=== PATIENT | female | born 1980 ===

== ENCOUNTER 2020-01-20 14:39 | Emergency (ER) | payer OTHER, SELFPAY ==
--- NOTE | ~2020-01-20 | CT_ITS ---
EXAMINATION: CT brain wo con DATE: 01/20/2020 16:01 INDICATION: Headache TECHNIQUE: Computed tomography (CT) of the head was performed without intravenous contrast. Sagittal and coronal reconstructions were performed. The mA was adjusted according to patient size. Iterative reconstruction technique was employed. The dose-length product was 605.33 mGy-cm. COMPARISON: head CT dated 11/15/2018 FINDINGS: No acute intracranial hemorrhage, acute infarction or abnormal extra axial fluid collection. Ventricl es are normal and symmetric. No mass/mass effect. Postoperative changes in the paranasal sinuses with bilateral uncinectomies and antral window procedures and resection of many of the ethmoid sinus sept ations. Sclerotic wall thickening at the bilateral sphenoid sinuses likely sequela of chronic sinusit is. The orbits and mastoid air cells are normal. IMPRESSION: 1. Normal brain. No acute intracranial process. Reviewed, dictated and finalized at [facility]. [employer]
[2020-01-20 14:46] VITALS: BP 143/86; PULSE 109; RESP 18; TEMP 36.6; O2SAT 99
[2020-01-20 15:05] LABS: Basophils Percent Auto 0.3 % (0.2-1.2); Eosinophils Absolute Auto 0.2 K/mm3 (0-0.3); Eosinophils Percent Auto 1.6 % (0-4.4); Hematocrit 42.6 % (37.0-47.0); Immature Granulocyte Absolute 0.06 K/mm3 (0.00-0.031); Immature Granulocyte Percent A 0.6 % (0-0.5); Lymphocytes Absolute Auto 2.59 K/mm3 (0.9-3.2); Mean Corpuscular HGB Conc 32.9 g/dl (32-36); Mean Corpuscular Volume 82.2 fl (80-100); Mean Platelet Volume 11.4 fl (7.4-10.4); Monocytes Absolute Auto 0.3 K/mm3 (0.1-0.6); Monocytes Percent Auto 3.6 % (2.6-8.5); Neutrophils Absolute Auto 6.1 K/mm3 (1.3-6.7); Neutrophils Percent Auto 65.9 % (45.5-73.1); Platelet Count Result 236 k/mm3 (150-375); Red Blood Count 5.18 M/mm3 (4.2-5.4); Red Cell Distribution Width 13.3 % (11.5-14.5); White Blood Count 9.2 K/mm3 (4.5-10.0)
[2020-01-20 15:06] LABS: Glucose Point of Care 267 (65-105)
[2020-01-20 15:17] LABS: Alanine Aminotransferase 24 U/L (4-35); Albumin Level 4.6 g/dL (3.5-5.1); Alkaline Phosphatase 134 U/L (38-126); Anion Gap 10 mmol/L (8-16); Aspartate Amino Transferase 27 U/L (14-36); Bilirubin,Total 0.4 mg/dL (0.2-1.3); Blood Urea Nitrogen 10 mg/dL (7-17); Calcium 9.9 mg/dL (8.4-10.2); Carbon Dioxide 31 mmol/L (22-30); Chloride 97 mmol/L (98-107); Estimated CRCL calculation 165 ml/min; Estimated Glomerular Filt Rate > 60; Glucose 301 mg/dL (65-105); Magnesium 1.7 mg/dL (1.6-2.3); Phosphorus 3.5 mg/dL (2.5-4.5); Potassium 4.1 mmol/L (3.4-5.0); Sodium 138 mmol/L (137-145)
[2020-01-20 15:20] LABS: Beta-Hydroxybutyrate/Acetoacetate 0.05 mmol/L (0.02-0.27)
[2020-01-20 15:23] LABS: Add Urine Microscopic? YES; Appearance Urine Clear (Clear); Bilirubin Urine Negative (Negative); Blood Urine 3+ (Negative); Color Urine Yellow (Yellow); Glucose Urine UA 3+ mg/dL (Negative); Ketones Urine Negative (Negative); Leukocyte Esterase Ur Trace LEU/UL (Negative); Nitrate Urine Negative (Negative); Protein Urine 1+ mg/dL (Negative); RBC Urine 21-50 /hpf (0-2); Specific Grav Ur 1.028 (1.001-1.035); Squamous Epithelial Cell Urine Occasional /hpf (Few); Urobilinogen Urine Negative mg/dL (<2.0); WBC Urine 0-3 /hpf
--- NOTE | 2020-01-20 15:53 | ED.RECABL ---
HPI - Recheck/Abnormal Lab/Rx General Chief Complaint: Recheck/Abnormal Lab/Rx Stated Complaint: ELEVATED BLOOD SUGAR Time Seen by Provider: 01/20/20 15:29 Source: patient Mode of arrival: ambulatory Limitations: no limitations History of Present Illness HPI narrative: This patient is a 39 year old female with history of DM, hypertension, glaucoma and chronic pain who presents for evaluation of an elevated blood sugar. PAtient reports she has felt off for 2 weeks . She report states today she checked her blood sugar and it was 500. She does not check her blood sugar daily so she is unsure if it has been runny high for 2 weeks . She reports frontal headache and blurred vision for 2 days. She has history of these headache with blurred vision . She has had frequent evaluation and she is following with an opthalmologist on Wednesday. She is taking eye drops due to elevated IOP of 28. She has been taking excedrin for her pain. she denies nausea , vomiting, sinus disease, or fever. She denies urinary symptoms. She reports she has been taking her diabetes medication as prescribed. Related Data Home Medications Medication Instructions Recorded Confirmed [place] 01/20/20 acyclovir 200 mg PO QID 01/20/20 amlodipine 10 mg PO DAILY 01/20/20 azelastine 1 drp OPHTHALMIC (EYE) BID 01/20/20 bupropion HCl [Wellbutrin XL] 150 mg PO QAM 01/20/20 bupropion HCl [Wellbutrin XL] 300 mg PO QAM 01/20/20 dicyclomine [Bentyl] 10 mg PO BID 01/20/20 diphenoxylate-atropine [Lomotil] 1 tablet PO TID PRN 01/20/20 gabapentin [Neurontin] 600 mg PO TID 01/20/20 latanoprostene bunod [Vyzulta] 1 drp OPHTHALMIC (EYE) QPM 01/20/20 metoprolol tartrate 50 mg PO Q12H 01/20/20 ropinirole [Requip] 2 mg PO TID 01/20/20 sitagliptin [Januvia] 100 mg PO DAILY 01/20/20 Allergies Allergy/AdvReac Type Severity Reaction Status Date / Time fexofenadine Allergy Mild Other Verified 01/20/20 14:50 latex Allergy Mild Hives / Verified 01/20/20 14:50 Red Face tramadol Allergy Mild Hives / Verified 01/20/20 14:50 Red Face Review of Systems Review of Systems: All systems reviewed & are unremarkable except as noted in HPI and below Constitutional: Constitutional: Denies chills and Denies fever(s) Eyes: Eyes: Reports blurry vision ENT: Reports dizziness Cardiovascular: Cardiovascular: Denies chest pain Respiratory: Respiratory: Denies cough and Denies dyspnea Gastrointestinal: Gastrointestinal: Denies abdominal pain Neurologic: Denies vertigo, Reports headache(s), Denies focal weakness, Denies numbness and Denies weakness [facility] Past Medical History Medical History (Updated 01/20/20 @ 18:51 by Consuelo Adler MD) Anxiety Depression Diabetes mellitus Glaucoma Neuropathy Surgical History Surgical History (Updated 01/20/20 @ 17:33 by Consuelo Adler MD) Hx of cholecystectomy Hx of tonsillectomy Social History Social History (Updated 01/20/20 @ 17:33 by Consuelo Adler MD) Smoking status: Never smoker Gender identity (if verbalized by the patient): Female Exam Const: General: no acute distress and alert Nutritional Appearance: obese Orientation/consciousness: patient oriented x3 HENMT: Head: normocephalic and atraumatic Ears: TM's normal bilaterally General nose exam: Normal external nose present, Normal nares present and No nasal polyps present Mouth: Yes Normal oral and palatal mucosa present, Yes lip normal, Yes oropharynx normal and Yes moist mucous membranes Throat: posterior oropharynx normal Eyes: Conjunctivae: conjunctivae normal Pupils: Equal, round and reactive pupils present EOM: EOMs intact bilaterally Direct Ophthalmoscopy: no photophobia Other: IOP right eye 21 , IOP left eye 21 Chest: Chest palpation & inspection: normal inspection of the chest Resp: Effort & Inspection: normal respiratory effort and no retractions Auscultation: clear to auscultation bilaterally Cardio: Rate: regula
[2020-01-20] MEDS: LACTATED RINGERS 1,000 ML 999 ML IV CONT (16:42)
[2020-01-20] MEDS: diphenhydrAMINE HCl INJ 50 MG/ML VIAL 25 MG IV PUSH (16:42)
[2020-01-20] MEDS: METOCLOPRAMIDE HCL INJ 10 MG/2 ML VIAL IV PUSH (16:42)
[2020-01-20 16:44] VITALS: BP 148/93; PULSE 105; RESP 20; O2SAT 98
[2020-01-20 17:51] VITALS: BP 136/83; PULSE 105; RESP 20; O2SAT 98
[2020-01-20] MEDS: LORazepam INJ (*CRX) 2 MG/ML VIAL 0.5 MG IV PUSH (17:55)
[2020-01-20] MEDS: KETOROLAC 30 MG/ML VIAL (*BKC) IV PUSH (17:55)
[2020-01-20 18:15] VITALS: BP 131/84; PULSE 108; RESP 18; O2SAT 98
[2020-01-20] MEDS: SODIUM CHLORIDE 0.9% IV 1,000 ML 999 ML IV CONT (18:23)
[2020-01-20 19:03] VITALS: BP 135/93; PULSE 100; RESP 20; O2SAT 97
[2020-01-20 19:25] VITALS: BP 135/93; PULSE 100; RESP 18; O2SAT 98
== END 2020-01-20 19:29 | disposition home or self-care (01) ==
PROVIDERS: Emergency Medicine; Emergency Provider General Practice; PCP Family Medicine
DX: E11.65 Type 2 diabetes mellitus with hyperglycemia (principal); R51.9 Headache, unspecified; E86.0 Dehydration; I10 Essential (primary) hypertension; H40.9 Unspecified glaucoma; F41.9 Anxiety disorder, unspecified; F32.9 Major depressive disorder, single episode, unspecified; E11.40 Type 2 diabetes mellitus with diabetic neuropathy, unspecified; Z79.84 Long term (current) use of oral hypoglycemic drugs
CPT/HCPCS: 36415; 70450; 80053; 81001; 81025; 82010; 82948; 83735; 84100; 85025; 96361; 96374; 96375; 99284; J1200; J1885; J2060; J2765; J7030; J7120

== ENCOUNTER 2022-02-23 13:36 | Emergency (ER) | payer OTHER, SELFPAY ==
[2022-02-23 14:06] VITALS: BP 164/85; PULSE 101; RESP 16; TEMP 36.7; O2SAT 100
--- NOTE | 2022-02-23 15:34 | ED.FEMALEGU ---
HPI - Female Genitourinary General Chief complaint: Urogenital-Female Stated complaint: UTI Time Seen by Provider: 02/23/22 15:34 Source: patient, RN notes reviewed and old records reviewed Mode of arrival: ambulatory Limitations: no limitations History of Present Illness HPI Narrative: 41-year-old female presents to the [facility] with complaints of urinary frequency, urgency, burning and pressure along with lower suprapubic pressure. Denies abdominal pains or fevers. Has been going on for 6 days. Was concern for as well Related Data Home Medications Medication Instructions Recorded Confirmed [place] 01/20/20 amlodipine 10 mg tablet 10 mg PO DAILY 01/20/20 azelastine 0.05 % eye drops 1 drp ophthalmic (eye) BID 01/20/20 bupropion HCl 150 mg 24 hr tablet, 150 mg PO QAM 01/20/20 extended release (Wellbutrin XL) bupropion HCl 300 mg 24 hr tablet, 300 mg PO QAM 01/20/20 extended release (Wellbutrin XL) dicyclomine 10 mg capsule 10 mg PO BID 01/20/20 diphenoxylate-atropine 2.5 1 tablet PO TID PRN Constipation 01/20/20 mg-0.025 mg tablet (Lomotil) gabapentin 600 mg tablet 600 mg PO TID 01/20/20 (Neurontin) latanoprostene bunod 0.024 % eye 1 drp ophthalmic (eye) QPM 01/20/20 drops (Vyzulta) metoprolol tartrate 50 mg tablet 50 mg PO Q12H 01/20/20 ropinirole 2 mg tablet 2 mg PO TID 01/20/20 sitagliptin phosphate 100 mg 100 mg PO DAILY 01/20/20 tablet (Januvia) Barium Fusionmvi 02/23/22 Citracal plus D 02/23/22 Saxenda 02/23/22 02/23/22 Slow Fe 02/23/22 acyclovir 200 mg/5 mL oral mg 02/23/22 suspension brimonidine 0.2 % eye drops drp 02/23/22 ergocalciferol (vitamin D2) 1,250 02/23/22 mcg (50,000 unit) capsule liraglutide 0.6 mg/0.1 mL (18 mg/3 mg subcut 02/23/22 mL) subcutaneous pen injector (Victoza 2-Lobito) naltrexone 50 mg tablet mg 02/23/22 timolol maleate 0.5 % eye drops drp 02/23/22 Allergies Allergy/AdvReac Type Severity Reaction Status Date / Time fexofenadine Allergy Mild Other Verified 02/23/22 15:22 latex Allergy Mild Hives / Verified 02/23/22 15:22 Red Face tramadol Allergy Mild Hives / Verified 02/23/22 15:22 Red Face Review of Systems Review of Systems: All systems reviewed & are unremarkable except as noted in HPI and below Constitutional: Constitutional: Reports no additional constitutional complaints Eyes: Eyes: Reports no additional eye complaints ENT: Reports system reviewed and no additional complaints, except as documented Cardiovascular: Cardiovascular: Reports no additional cardiovascular complaints, Denies chest pain and Denies dyspnea Respiratory: Respiratory: Reports no additional respiratory complaints, Denies chest congestion, Denies cough and Denies dyspnea Gastrointestinal: Gastrointestinal: Reports no additional gastrointestinal complaints, Denies abdominal pain, Denies nausea and Denies vomiting Genitourinary: Genitourinary: Reports as per HPI Musculoskeletal: Musculoskeletal: Reports no additional musculoskeletal complaints Integumentary/Breasts: Skin/Breast: Reports system reviewed and no additional complaints, except as docu Neurologic: Reports system reviewed and no additional complaints, except as documented Psychiatric: Psychiatric: Reports no additional psychiatric complaints Allergic/Immunologic: Allergic/Immunologic: Reports no additional allergic/immunologic complaints PMFSH Past Medical History Medical History Anxiety Depression Diabetes mellitus Glaucoma Neuropathy Surgical History Surgical History Hx of cholecystectomy Hx of tonsillectomy Social History Social History Smoking status: Never smoker Gender identity (if verbalized by the patient): Female Comments At the time of my signature, I reviewed and agree with
== END 2022-02-23 15:47 | disposition home or self-care (01) ==
PROVIDERS: Emergency Provider Nurse Practitioner; PCP Family Medicine
DX: N39.0 Urinary tract infection, site not specified (principal); Z32.02 Encounter for pregnancy test, result negative; E11.39 Type 2 diabetes mellitus with other diabetic ophthalmic complication; H42 Glaucoma in diseases classified elsewhere; E11.40 Type 2 diabetes mellitus with diabetic neuropathy, unspecified
CPT/HCPCS: 81003; 81025; 87077; 87086; 87186; 99213; G0463

== ENCOUNTER 2024-06-22 12:39 | Emergency (ER) | payer OTHER, SELFPAY ==
[2024-06-22 12:50] VITALS: BP 120/85; PULSE 63; RESP 18; TEMP 36.1; O2SAT 99
--- NOTE | 2024-06-22 12:54 | ED_ITS ---
HPI - Epistaxis General Chief complaint: Epistaxis <Romana López APRN - Last Filed: 06/22/24 12:57> Stated complaint: Nose bleed -pt on Eliquis <Romana López APRN - Last Filed: 06/22/24 12:57> Time Seen by Provider: 06/22/24 12:50 <Romana López APRN - Last Filed: 06/22/24 12:57> Focused HPI: Patient is a 44-year-old female who presents to the ER with concerns of epistaxis. She reports she had a hip replacement on June 09, 2024. Patient reports she was placed on Eliquis at that time. Approximately 30 minutes prior to arrival patient reports she started experiencing a bloody nose. Patient reports she has been putting pressure on her nose, but decided to come in for evaluation when she felt the blood running down the back of her throat. She reports this is her 1st bloody nose since taking Eliquis. Patient endorses history her palpitations but reports her cardiac workup was negative. She denies any recent fevers, increased hip pain, coughing up blood, blood in her stool, or hematuria. GENERAL: Well-appearing, well-nourished, and in no acute distress. HEAD: Normocephalic, atraumatic. Nasal bleeding controlled. CHEST: Clear to auscultation. ?No respiratory distress. HEART: Regular rate and rhythm.? NEURO: ?Alert and oriented x3. Patient screened in triage and initial orders placed.? ?Additional care and disposition to be based upon?diagnostic testing and treatment. <Romana López APRN - Last Filed: 06/22/24 12:57> History of Present Illness HPI Narrative: Agree with the HPI above <Ang Talavera MD - Last Filed: 06/22/24 15:21> Related Data Home medications: Home Medications ?Medication ?Instructions ?Recorded ?Confirmed ?Last Taken ?Type Byetta 01/20/20 Unknown History amlodipine 10 mg tablet 10 mg PO DAILY 01/20/20 Unknown History azelastine 0.05 % eye drops 1 drp ophthalmic (eye) BID 01/20/20 Unknown History bupropion HCl 150 mg 24 hr tablet, 150 mg PO QAM 01/20/20 Unknown History extended release (Wellbutrin XL) bupropion HCl 300 mg 24 hr tablet, 300 mg PO QAM 01/20/20 Unknown History extended release (Wellbutrin XL) dicyclomine 10 mg capsule 10 mg PO BID 01/20/20 Unknown History diphenoxylate-atropine 2.5 1 tablet PO TID PRN Constipation 01/20/20 Unknown History mg-0.025 mg tablet (Lomotil) gabapentin 600 mg tablet 600 mg PO TID 01/20/20 Unknown History (Neurontin) latanoprostene bunod 0.024 % eye 1 drp ophthalmic (eye) QPM 01/20/20 Unknown History drops (Vyzulta) metoprolol tartrate 50 mg tablet 50 mg PO Q12H 01/20/20 Unknown History ropinirole 2 mg tablet 2 mg PO TID 01/20/20 Unknown History sitagliptin phosphate 100 mg 100 mg PO DAILY 01/20/20 Unknown History tablet (Januvia) Barium Fusionmvi 02/23/22 Unknown History Citracal plus D 02/23/22 Unknown History Saxenda 02/23/22 02/23/22 Unknown History Slow Fe 02/23/22 Unknown History acyclovir 200 mg/5 mL oral mg 02/23/22 Unknown History suspension brimonidine 0.2 % eye drops drp 02/23/22 Unknown History ergocalciferol (vitamin D2) 1,250 02/23/22 Unknown History mcg (50,000 unit) capsule liraglutide 0.6 mg/0.1 mL (18 mg/3 mg subcut 02/23/22 Unknown History mL) subcutaneous pen injector (Victoza 2-Lobito) naltrexone 50 mg tablet mg 02/23/22 Unknown History timolol maleate 0.5 % eye drops drp 02/23/22 Unknown History <Romana López, [employer] - Last Filed: 06/22/24 12:57> Allergies/adverse reactions: Allergies Allergy/AdvReac Type Severity Reaction Status Date / Time fexofenadine Allergy Mild Other Verified 06/22/24 12:40 latex Allergy Mild Hives / Verified 06/22/24 12:40 Red Face tramadol Allergy Mild Hives / Verified 06/22/24 12:40 Red Face <Romana López, [employer] - Last Filed: 06/22/24 12:57> Review of Systems 2 Review of Systems: As reviewed above in HPI <Ang Talavera MD - Last Filed: 06/22/24 15:21> PMFSH Past Medical History Medical History: Medical History Anxiety Depression Neuropathy Glaucoma Diabetes mellitus <Romana López APRN - Last Filed: 06/22/24 12:57> Surgical History Surgical History: Surgical History Hx of cholecystectomy Hx of tonsillectomy <Romana López APRN - Last Filed: 06/22/24 12:57> Social History Social History: Social History Smoking status: Never smoker Gender identity (if verbalized by the patient): Female <Romana López APRN - Last Filed: 06/22/24 12:57> Exam 2 Narrative: GENERAL: [Well-appearing, well-nourished, and in no acute distress.] HEAD: [Normocephalic, atraumatic.] EYES: [PERRLA and EOMI.] ENT: Recent foci of anterior epistaxis in left nostril without any persistent bleeding. No posterior oropharyngeal erythema or bleeding. No epistaxis in the right nostril. No tenderness or deformity to the nose. No bruising. No septal hematoma. NECK: Supple. CHEST: [Clear to auscultation. No respiratory distress.] HEART: [Regular rate and rhythm]. No murmur heard. [Normal peripheral pulses.] ABDOMEN: [Soft, nondistended], [nontender], [No rigidity or guarding] EXTREMITIES: Normal range of motion. [No edema.] SKIN: Warm, dry, no rash. NEURO: [No focal deficits]. Alert and oriented [x3.] PSYCH: [Normal mood and affect.] <Ang Talavera MD - Last Filed: 06/22/24 15:21> Course Vital Signs Vital signs: Vital Signs Temperature 36.1 C L 04/24/25 12:50 Pulse Rate 63 06/22/24 12:50 Respiratory Rate 18 06/22/24 12:50 Blood Pressure 120/85 06/22/24 12:50 Pulse Oximetry 99 06/22/24 12:50 Oxygen Delivery Room Air 06/22/24 12:50 Temperature 36.1 C L 06/22/24 12:50 Pulse Rate 87 06/22/24 14:46 Respiratory Rate 16 06/22/24 14:46 Blood Pressure 115/76 06/22/24 14:46 Pulse Oximetry 99 06/22/24 14:46 Oxygen Delivery Room Air 06/22/24 12:50 <Romana López, [employer] - Last Filed: 06/22/24 12:57> Vital Signs Temperature 36.1 C L 06/22/24 12:50 Pulse Rate 63 06/22/24 12:50 Respiratory Rate 18 06/22/24 12:50 Blood Pressure 120/85 06/22/24 12:50 Pulse Oximetry 99 06/22/24 12:50 Oxygen Delivery Room Air 06/22/24 12:50 Temperature 36.1 C L 06/22/24 12:50 Pulse Rate 87 06/22/24 14:46 Respiratory Rate 16 06/22/24 14:46 Blood Pressure 115/76 06/22/24 14:46 Pulse Oximetry 99 06/22/24 14:46 Oxygen Delivery Room Air 06/22/24 12:50 <Ang Talavera MD - Last Filed: 06/22/24 15:21> MDM - Epistaxis MDM Narrative Medical decision making narrative: 44-year-old female presenting with epistaxis out of her left naris. Patient received Afrin with epistaxis control. Patient was observed here in the emergency depart with any recurrence of epistaxis. She is on Eliquis 2.5 mg b.i.d. for DVT prophylaxis after she had a recent left hip replacement. Patient has not missed any doses. Denies any trauma or injury. She is otherwise well- appearing and now that her epistaxis is controlled can be safely discharged home. She was provided aspirin prescription instructions on if this were to recur. Patient denies any symptoms at this time such as lightheadedness, dizziness, sore throat or any persistent bleeding. Her laboratory studies show a hemoglobin 11.1 with no recent baseline to compare to. No other concerning findings on labs. Patient was encouraged to continue taking her Eliquis and for DVT prophylaxis and return with any new or worsening concerns or recurrence. < Ang Talavera MD - Last Filed: 06/22/24 15:21> Medical Records Attestation: I reviewed the patient's medical records. <Ang Talavera MD - Last Filed: 06/22/24 15:21> Lab Data Attestation: I reviewed the patient's lab results. <Ang Talavera MD - Last Filed: 06/22/24 15:21> Result diagrams: 06/22/24 13:25 06/22/24 13:25 <Romana López APRN - Last Filed: 06/22/24 12:57> Labs: Lab Results 06/22/24 06/22/24 Range/Units 13:23 13:25 WBC 11.0 H (4.5-10.0) K/mm3 RBC 4.01 L (4.2-5.4) M/mm3 Hgb 11.1 L (12.0-15.0) g/dL Hct 34.5 L (37.0-47.0) % MCV 86.0 (80-100) fl MCH 27.7 (26-34) pg MCHC 32.2 (32-36) g/dl RDW 14.4 (11.5-14.5) % Plt Count 324 (150-375) k/mm3 MPV 10.1 (7.4-10.4) fl Immature Gran % (Auto) 0.6 H (0-0.5) % Neut % (Auto) 72.6 (45.5-73.1) % Lymph % (Auto) 20.3 (18.3-44.2) % [place] % (Auto) 3.7 (2.6-8.5) % Eos % (Auto) 2.5 (0-4.4) % Baso % (Auto) 0.3 (0.2-1.2) % Lymph # (Auto) 2.24 (0.9-3.2) K/mm3 [place] # (Auto) 0.4 (0.1-0.6) K/mm3 Eos # (Auto) 0.3 (0-0.3) K/mm3 Baso # (Auto) 0.0 (0.0-0.1) K/mm3 Abs Immat Gran (auto) 0.07 H (0.00-0.031) K/mm3 Absolute Neuts (auto) 8.0 H (1.3-6.7) K/mm3 Absolute Nucleated RBC 0.000 (0.0-0.012) K/mm3 Nucleated RBC % 0.0 (0.0-0.2) % PT 13.9 (11.1-14.7) Seconds INR 1.0 APTT 32.9 (22.3-36.8) Seconds Sodium 137 (137-145) mmol/L Potassium 3.8 (3.4-5.0) mmol/L Chloride 100 (98-107) mmol/L Carbon Dioxide 28 (22-30) mmol/L Anion Gap 9 (4-12) mmol/L BUN 8 (7-17) mg/dL Creatinine 0.62 L (0.7-1.0) mg/dL Estim Creat Clear Calc 112 ml/min Estimated GFR > 60 (59 - ) Glucose 110 (65-110) mg/dL Calcium 9.1 (8.4-10.2) mg/dL Total Bilirubin 0.7 (0.2-1.3) mg/dL AST 17 (14-36) U/L ALT 13 (6-35) U/L Alkaline Phosphatase 100 (38-126) U/L Total Protein 8.0 (6.3-8.2) g/dL Albumin 4.1 (3.5-5.1) g/dL <Romana López, [employer] - Last Filed: 06/22/24 12:57> Lab Results 06/22/24 06/22/24 Range/Units 13:23 13:25 WBC 11.0 H (4.5-10.0) K/mm3 RBC 4.01 L (4.2-5.4) M/mm3 Hgb 11.1 L (12.0-15.0) g/dL Hct 34.5 L (37.0-47.0) % MCV 86.0 (80-100) fl MCH 27.7 (26-34) pg MCHC 32.2 (32-36) g/dl RDW 14.4 (11.5-14.5) % Plt Count 324 (150-375) k/mm3 MPV 10.1 (7.4-10.4) fl Immature Gran % (Auto) 0.6 H (0-0.5) % Neut % (Auto) 72.6 (45.5-73.1) % Lymph % (Auto) 20.3 (18.3-44.2) % [place] % (Auto) 3.7 (2.6-8.5) % Eos % (Auto) 2.5 (0-4.4) % Baso % (Auto) 0.3 (0.2-1.2) % Lymph # (Auto) 2.24 (0.9-3.2) K/mm3 [place] # (Auto) 0.4 (0.1-0.6) K/mm3 Eos # (Auto) 0.3 (0-0.3) K/mm3 Baso # (Auto) 0.0 (0.0-0.1) K/mm3 Abs Immat Gran (auto) 0.07 H (0.00-0.031) K/mm3 Absolute Neuts (auto) 8.0 H (1.3-6.7) K/mm3 Absolute Nucleated RBC 0.000 (0.0-0.012) K/mm3 Nucleated RBC % 0.0 (0.0-0.2) % PT 13.9 (11.1-14.7) Seconds INR 1.0 APTT 32.9 (22.3-36.8) Seconds Sodium 137 (137-145) mmol/L Potassium 3.8 (3.4-5.0) mmol/L Chloride 100 (98-107) mmol/L Carbon Dioxide 28 (22-30) mmol/L Anion Gap 9 (4-12) mmol/L BUN 8 (7-17) mg/dL Creatinine 0.62 L (0.7-1.0) mg/dL Estim Creat Clear Calc 112 ml/min Estimated GFR > 60 (59 - ) Glucose 110 (65-110) mg/dL Calcium 9.1 (8.4-10.2) mg/dL Total Bilirubin 0.7 (0.2-1.3) mg/dL AST 17 (14-36) U/L ALT 13 (6-35) U/L Alkaline Phosphatase 100 (38-126) U/L Total Protein 8.0 (6.3-8.2) g/dL Albumin 4.1 (3.5-5.1) g/dL <Ang Talavera MD - Last Filed: 06/22/24 15:21> Discharge Plan Discharge Clinical Impression: Epistaxis <Romana López APRN - Last Filed: 06/22/24 12:57> Patient Disposition: Home <Romana López APRN - Last Filed: 06/22/24 12:57> Condition: Stable <Romana López APRN - Last Filed: 06/22/24 12:57> Instructions: Antibiotic Form, Nosebleed (ED) <Romana López APRN - Last Filed: 06/22/24 12:57> Additional Instructions: Follow-up with regular doctor. Return with any new or worsening concerns. Take Afrin and apply it to some cotton or gauze and apply it to the nostril that is bleeding if you are having a recurrent severe nose bleed. Continue taking your Eliquis for your DVT prophylaxis. Return with any new or worsening concerns. <Romana López APRN - Last Filed: 06/22/24 12:57> Patient Language: Citizen Of [place] <Romana López APRN - Last Filed: 06/22/24 12:57> Prescriptions: No Action brimonidine 0.2 % drops ergocalciferol (vitamin D2) 1,250 mcg (50,000 unit) capsule timolol maleate 0.5 % drops sulfamethoxazole-trimethoprim [Bactrim DS] 800-160 mg tablet 1 tablet PO Q12H Qty: 14 0RF phenazopyridine [Pyridium] 200 mg tablet 200 mg PO TID PRN (Reason: pain) Qty: 6 0RF naltrexone 50 mg tablet Victoza 2-Lobito 0.6 mg/0.1 mL (18 mg/3 mL) pen injector SUBCUT Saxenda acyclovir 200 mg/5 mL suspension Barium Fusionmvi Slow Fe Citracal plus D azelastine 0.05 % Drops 1 drp OPHTHALMIC (EYE) BID gabapentin [Neurontin] 600 mg Tablet 600 mg PO TID diphenoxylate-atropine [Lomotil] 2.5-0.025 mg Tablet 1 tablet PO TID PRN (Reason: Constipation) amlodipine 10 mg Tablet 10 mg PO DAILY ropinirole [Requip] 2 mg Tablet 2 mg PO TID metoprolol tartrate 50 mg Tablet 50 mg PO Q12H dicyclomine [Bentyl] 10 mg Capsule 10 mg PO BID bupropion HCl [Wellbutrin XL] 300 mg Tablet Extended Release 24 Hr 300 mg PO QAM bupropion HCl [Wellbutrin XL] 150 mg Tablet Extended Release 24 Hr 150 mg PO QAM Januvia 100 mg Tablet 100 mg PO DAILY Vyzulta 0.024 % Drops 1 drp OPHTHALMIC (EYE) QPM Byetta <Romana López APRN - Last Filed: 06/22/24 12:57> Follow-up/Referrals: Waldo,Christo Rojas MD [Primary Care Provider] - <Romana López APRN - Last Filed: 06/22/24 12:57> Time of Disposition: 15:18 <Romana López APRN - Last Filed: 06/22/24 12:57> 15:18 <Ang Talavera MD - Last Filed: 06/22/24 15:21>
[2024-06-22 13:32] LABS: Basophils Percent Auto 0.3 % (0.2-1.2); Eosinophils Absolute Auto 0.3 K/mm3 (0-0.3); Eosinophils Percent Auto 2.5 % (0-4.4); Hematocrit 34.5 % (37.0-47.0); Hemoglobin 11.1 g/dL (12.0-15.0); Immature Granulocyte Absolute 0.07 K/mm3 (0.00-0.031); Immature Granulocyte Percent A 0.6 % (0-0.5); Lymphocytes Absolute Auto 2.24 K/mm3 (0.9-3.2); Lymphocytes Percent Auto 20.3 % (18.3-44.2); Mean Corpuscular HGB Conc 32.2 g/dl (32-36); Mean Corpuscular Hemoglobin 27.7 pg (26-34); Mean Platelet Volume 10.1 fl (7.4-10.4); Monocytes Absolute Auto 0.4 K/mm3 (0.1-0.6); Monocytes Percent Auto 3.7 % (2.6-8.5); Neutrophils Percent Auto 72.6 % (45.5-73.1); Platelet Count Result 324 k/mm3 (150-375); Red Blood Count 4.01 M/mm3 (4.2-5.4); Red Cell Distribution Width 14.4 % (11.5-14.5)
--- OUTSIDE RECORDS SUMMARY | 2024-06-22 13:40 | XMS_ITS | Clinical Summary ---
Author Organization [address] Address [facility] [place] [address] Care Team Providers Care Machine Setter Supervisor Name Role Phone Christo Haas MD Primary Care Provider Stephanie Dangelo PA Unavailable [phone] Allergies Active Allergy Reactions Criticality Noted Date Comments Fexofenadine Palpitations,Othe r (See comments) Low 04/09/2023 Reaction: Increased Heart Rate, Latex Hives,Stomach upset,Other (See comments) Medium 03/29/2017 Reaction: Hives, , hives Metformin Diarrhea,Other (See comments) High 09/23/2020 Nsaids (Non-Steroidal Anti-Inflammatory Drug) Other (See comments) Low 04/09/2023 Reaction: Gastrointestinal Intolerance 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 2020; takes medication type in small doses infrequently Tramadol Hives,Itching,Deacon h Medium 12/14/2023 Medications brimonidine (ALPHAGAN) 0.2 % ophthalmic solution Administer 1 drop into both eyes 3 (three) times a day Active OneTouch Verio Flex meter misc USE DIRECTED ONCE DAILY Active pen needle, diabetic 29 gauge x 1/2 needle Use to inject 1-4 times daily as directed Active OneTouch Verio test strips stripIndications: Type 2 diabetes mellitus with hyperglycemia, with long-term current use of insulin ([facility]) USE TO CHECK GLUCOSE ONCE DAILY 100 strip 6 Active OneTouch Delica Plus Lancet 33 gauge miscIndications:T ype 2 diabetes mellitus with hyperglycemia, with long-term current use of insulin ([facility]) USE TO CHECK GLUCOSE ONCE DAILY 100 each 6 Active buPROPion XL (WELLBUTRIN XL) 300 mg 24 hr tablet Take 1 tablet (300 mg total) by mouth daily Active gabapentin (NEURONTIN) solution 250 mg/5 mL Take 22 mL (1,100 mg total) by mouth 3 (three) times a day as needed (pain) Active famotidine (PEPCID) 20 mg tablet Take 1 tablet (20 mg total) by mouth 2 (two) times a day as needed Active ketoconazole (NIZORAL) 2 % cream Apply 1 Application topically daily as needed for rash Active pilocarpine (PILOCAR) 1 % ophthalmic solution Administer 1 drop into both eyes nightly Active acyclovir (ZOVIRAX) 400 mg tablet Take 1 tablet (400 mg total) by mouth 5 (five) times a day For outbreak Active latanoprost (XALATAN) 0.005 % ophthalmic solution Administer 1 drop into both eyes nightly Active propranolol LA (INDERAL LA) 120 mg 24 hr capsule Take 1 capsule (120 mg total) by mouth daily Active timolol (TIMOPTIC) 0.5 % ophthalmic solution Administer 1 drop into both eyes 2 (two) times a day Active busPIRone (BUSPAR) 10 mg tablet Take 2 tablets (20 mg total) by mouth 2 (two) times a day Active galcanezumab-gnlm 120 mg/mL pen injector Inject 120 mg under the skin every 30 (thirty) days 1 mL 11 024 2024 Active ubrogepant (Ubrelvy) 100 mg tablet Take 1 tablet (100 mg total) by mouth once as needed for migraine May repeat dose once in 2 hours if no relief. Do not exceed 2 doses in 24 hours. 10 tablet 11 2024 Active SUMAtriptan (Imitrex STATdose Pen) 6 mg/0.5 mL injection Inject 0.5 mL (6 mg total) under the skin as needed for migraine May repeat after 1 hour if needed; MAX 12 mg/24 hours. 6 mL 5 Active Ozempic 1 mg/dose (4 mg/3 mL) pen injector injection Inject 1 mg under the skin once a week Takes on Sundays Active DULoxetine DR (CYMBALTA) 60 mg capsule Take 1 capsule (60 mg total) by mouth daily Active prochlorperazine (COMPAZINE) 10 mg tablet Take 1 tablet (10 mg total) by mouth every 8 (eight) hours as needed for nausea (migraine) 30 tablet 2024 Active apixaban (ELIQUIS) 2.5 mg tabletIndications :VTE Prophylaxis Following Ortho Surgery Take 1 tablet (2.5 mg total) by mouth 2 (two) times a day 28 tablet Active acetaminophen (TYLENOL) 500 mg tablet Take 2 tablets (1,000 mg total) by mouth 2 (two) times a day as needed for pain Active carboxymethylcell ulose-glycern 0.5-0.9 % drops Administer 1 drop into affected eye(s) daily as needed (dry eyes) Active oxyCODONE (ROXICODONE) 5 mg immediate release tabletIndications :Pain Take 1 tablet (5 mg total) by mouth every 4 (four) hours as needed for pain 30 tablet Active methocarbamoL (ROBAXIN) 500 mg tabletIndications :S/P total left hip arthroplasty,Spas m of muscle Take 1 tablet (500 mg total) by mouth 4 (four) times a day 30 tablet Active Byetta 10 mcg/dose(250 mcg/mL) 2.4 mL injection INJECT 10 MICROGRAMS TWICE A DAY BEFORE MEALS 2020 Discontinued(A lternate therapy) Januvia 100 mg tablet Take 100 mg by mouth daily 2020 Discontinued(A lternate therapy) UNABLE TO FIND Administer 1 each into affected eye(s) nightly Med Name: Pilocartine 1% I drop OU nightly 2024 Discontinued(T herapy completed) UNABLE TO FIND Administer 1 each into affected eye(s) nightly Med Name: Latanotrost 0.005% one drop OU nightly 2024 Discontinued(T herapy completed) diclofenac sodium (VOLTAREN) 1 % gelIndications:Os teoarthritis of left patellofemoral joint Apply 4 g topically 4 (four) times a day 200 g 1 [address] (VOLTAREN) 75 mg EC tablet Take 1 tablet (75 mg total) by mouth 2 (two) times a day 2024 Discontinued prochlorperazine (COMPAZINE) 10 mg tablet Take 1 tablet (10 mg total) by mouth every 8 (eight) hours as needed for nausea (migraine) 20 tablet 2024 Discontinued(R eorder) meloxicam (MOBIC) 15 mg tablet Take 1 tablet (15 mg total) by mouth daily as needed 025 2024 Discontinued(S top Taking at Discharge) DULoxetine DR (CYMBALTA) 30 mg capsule 1 capsule (30 mg total) daily 2024 Discontinued ciprofloxacin-dex AMETHasone (CIPRODEX) otic suspension 2024 Discontinued(T herapy completed) diclofenac DR (VOLTAREN) 75 mg EC tablet Take 1 tablet (75 mg total) by mouth 2 (two) times a day 2024 Discontinued(T herapy completed) potassium chloride ER 20 mEq CR tablet Take 1 tablet (20 mEq total) by mouth 2 (two) times a day for 7 days 14 tablet 025 2024 Discontinued(T herapy completed) oxyCODONE (ROXICODONE) 5 mg immediate release tabletIndications :Pain Take 1 tablet (5 mg total) by mouth every 4 (four) hours as needed for pain 30 tablet 025 2024 Discontinued(R eorder) methocarbamoL (ROBAXIN) 500 mg tablet Take 1 tablet (500 mg total) by mouth 3 (three) times a day for 5 days 15 tablet 025 2024 Active Problems Problem Noted Date Diagnosed Date S/P total left hip arthroplasty 06/10/2024 Assessment & Plan (06/22/2024 8:57 AM CDT): Patient is doing well overall. X-rays were reviewed with the patient today in clinic and demonstrate hardware in good alignment without apparent complication. Patient's pain is under control, pain medication was refilled today. Muscle relaxer also refilled. Patient will continue outpatient physical therapy. No evidence of infection of the surgical site. Patient will continue to keep the surgical site clean and dry for 2 more weeks and then may start getting it wet in the shower. Signs of infection were reviewed with the patient including increased swelling and erythema along the surgical site, purulent drainage from the surgical site, fever, chills and they will notify us they develop any of these signs. She will follow up in 4 weeks for x- rays and further evaluation with Dr. Cano. She expressed understanding and agreement with the plan. Type 2 diabetes mellitus wit hout complication, without long-term current use of insulin 06/09/2024 Primary osteoarthritis of left hip 04/12/2024 Chronic SI joint pain 04/12/2024 Impacted cerumen of right ear 06/21/2023 Assessment & Plan (06/21/2023 12:00 PM CDT): There was a pretty thick layer of debris covering the tympanic membrane on the right side that was removed. I think that was probably causing her continued symptoms. We will take a wait and see approach now that this has cleared. She can follow up if she has any further problems. She understands. Ocular hypertension 05/26/2023 Malabsorption syndrome 05/26/2023 Neuropathy 05/26/2023 Restrictive lung disease 05/26/2023 Weight gain due to medication 05/26/2023 Atypical chest pain 03/30/2023 Non-rheumatic mitral regurgitation 03/30/2023 Fatty liver 01/29/2023 S/P gastric sleeve procedure 01/29/2023 Otitis media 01/19/2023 Assessment & Plan (06/21/2023 12:00 PM CDT): I think that the infection that she was dealing with has probably resolve. I reviewed the MRI scan and it really does not show anything else. I think that was probably middle ear effusion noted on those films. His point things seem to have resolved. I do not feel there is any need for further intervention. She can follow up with me if her symptoms persist. She understands. Low back pain 12/11/2022 Osteoarthritis of knee 12/11/2022 Intermittent palpitations 11/10/2022 Migraine 07/03/2022 Thyroid nodule 07/03/2022 Herniated lumbar intervertebral disc 2022 Irritable bowel syndrome with diarrhea Gastric reflux 10/16/2021 Spondylosis of lumbar region without myelopathy or radiculopathy 07/10/2021 Lumbar paraspinal muscle spasm 07/10/2021 Paresthesia of right foot 07/10/2021 Status post bariatric surgery 08/01/2020 Morbid obesity 07/02/2020 SVT (supraventricular tachycardia) 03/21/2020 Bilateral leg edema 03/21/2020 Vitamin D deficiency 03/21/2020 Assessment & Plan (07/08/2021 3:13 PM CDT): Continue ergocalciferol 50,000 international units weekly Assessment & Plan (03/27/2021 3:33 PM BARBER INSTRUCTOR): Will check 25 hydroxy vitamin-D level Start ergocalciferol if indicated Iron deficiency 03/21/2020 Dyslipidemia 07/26/2018 Anxiety 04/24/2018 Arteriovenous malformation of stomach 04/24/2018 Depressive disorder 04/24/2018 Iron deficiency anemia 04/24/2018 Chronic sinusitis 04/24/2018 Glaucoma 04/24/2018 Restless legs 04/24/2018 Assessment & Plan (07/13/2023 9:30 AM CDT): Doing well with the liquid gabapentin as ordered by pain clinic Migraine without aura and wi thout status migrainosus, not intractable 06/15/2017 Bilateral sacroiliitis 05/20/2017 Primary osteoarthritis of right shoulder 017 Type 2 diabetes mellitus wit h hyperglycemia, with long-term current use of insulin 10/07/2016 Assessment & Plan (07/08/2021 3:12 PM CDT): Hba1c was Lab Results Component Value Date HGBA1C 6.6 07/08/2021 today, indicating adequate DM control Goal Hba1c and blood glucose explained Diet and exercise were advised Prevention and treatment of hyypoglcyemia were discussed with the patient Blood glucose monitoring : 1-2 x day Adjustment to medications: Continue current Assessment & Plan (03/27/2021 3:32 PM BARBER INSTRUCTOR): Hba1c was Lab Results Component Value Date HGBA1C 6.7 03/27/2021 today, indicating adequate but worsening DM control Goal Hba1c and blood glucose explained Diet and exercise were advised Prevention and treatment of hyypoglcyemia were discussed with the patient Blood glucose monitoring : P.r.n. for elevated glucoses Adjustment to medications: Restart Victoza Humalog on a correctional scale for glucose over 150 Take Humalog, 8 units for sugars over 150 Take 10 units for sugars over 200 Take 12 units for sugars over 250 Assessment & Plan (08/29/2020 3:12 PM CDT): Hba1c was Lab Results Component Value Date HGBA1C 5.7 08/29/2020 today, indicating adequate DM control Goals blood sugars of 120-160 and Hba1c under 7 % was explained. 1800 calorie, consistent carb diet recommended, no more than 3-45 grams of carbs per meal, avoiding concentrated sweet drinks and rapid absorption carbs. 25-45 min daily aerobic and resistance exercise recommended Blood glucose monitoring with fingers sticks 2-3 x week, different times of the day Assessment & Plan (05/21/2020 4:22 PM CDT): Hba1c was Lab Results Component Value Date HGBA1C 8.5 05/21/2020 today, indicating inadequate DM control Goal blood sugars in the 120-150 range , with Hb1c under 7.0 % was explained 1800 calorie, consistent carb diet recommended. No more than 30-45 grams of carbs per meal recommended, as well as avoiding high concentrated sweet drinks . 25-45 min daily exercise, combining both aerobic and resistance exercise recommended. The need to monitor blood glucose before meals and bedtime was discussed. Prevention and treatment of hyypoglcyemia discussed. Increase Lantus 70 units bedtime Take Humalog, 12 units with meals For sugars over 200, take 16 units Increase Victoza to 1.8 m daily. Stay on Glipizide. Seasonal allergic rhinitis due to pollen 017 AVM (arteriovenous malformation) of small bowel, acquired 11/26/2015 Atherosclerotic heart diseas e of [place] coronary artery without angina pectoris 10/22/2015 Essential hypertension 10/22/2015 Overview (03/21/2020): Controlled GERD (gastroesophageal reflux disease) 6 Metabolic syndrome 07/13/2015 Overview (03/21/2020): Improved with weight loss Mitral valve prolapse 07/13/2015 Overview (03/21/2020): With mild mitral valve regurgitation Obstructive sleep apnea 07/13/2015 Overview (03/21/2020): On CPAP, sees Dr. Finney Assessment & Plan (07/13/2023 9:30 AM CDT): Due to continued symptoms, the patient will continue CPAP at 10 cm water pressure. Denied need for supplies DME [facility] patient Assessment & Plan (04/09/2023 11:19 AM BARBER INSTRUCTOR): The patient has obstructive sleep apnea and is in need of new supplies so that she can restart CPAP therapy at 10 cm water pressure. She once again is snoring without the CPAP mask in place and has daytime hypersomnia. She would also like to pick out a new style of mask. I will send an order for a new CPAP unit set at 10 cm water pressure and she will also need new supplies and will follow up here in 3 months. She is aware that she may need a new diagnostic study. Tricuspid valve regurgitation 07/13/2015 Overview (03/21/2020): Mild Moderate persistent asthma without complication 06/19/2015 Inflammatory polyarthropathy 07/15/2013 Overview (06/04/2016): INFLAMM POLYARTHROP NOS Drug indicated 02/01/2012 Overview (06/04/2016): LONG-TERM USE MEDS NEC Resolved Problems Problem Noted Date Diagnosed Date Resolved Date Type 2 diabetes mellitus wit h hyperglycemia, without long-term current use of insulin 03/05/2020 05/21/2020 Assessment & Plan (03/05/2020 5:52 PM BARBER INSTRUCTOR): Hba1c was Lab Results Component Value Date HGBA1C 8.2 03/05/2020 today, indicating inadequate DM control Goal blood sugars in the 120-150 range , with Hb1c under 7.0 % was explained 1800 calorie, consistent carb diet recommended. No more than 30-45 grams of carbs per meal recommended, as well as avoiding high concentrated sweet drinks . 25-45 min daily exercise, combining both aerobic and resistance exercise recommended. The need to monitor blood glucose before meals and bedtime was discussed. Prevention and treatment of hyypoglcyemia discussed. Stop Januvia Stop Byetta Start Bydureon, 2 mg once a week Start Lantus, 15 units at night Increase Lantus by 3 units every 3 days until your morning sugars are persistently under 150 Start Humalog, 6 units before breakfast and dinner For sugars over 160, take 8 units For sugars marky 200, take 10 units For sugars over 250, take 12 units Idiopathic hypersomnia 04/24/201807/12 Morbid obesity with BMI of 40.0-44.9, adult 11/10/2017 03/27/2021 Polycystic ovarian disease 07/13/2015 0 05/21/2020 Encounters Date Type Department Care Team Description 06/22/2024 9:00 AM CDT Office Visit [facility] Orthopedics and Sports Medicine [facility] [address] [place] [phone] Stephanie Dangelo PA S/P total left hip arthroplasty (Primary Dx); Spasm of muscle 06/22/2024 8:19 AM CDT Hospital Encounter [facility] Diag Imaging [facility] [place] [address] S/P total left hip arthroplasty 06/21/2024 1:30 PM CDT Therapy [facility] OP Physical Therapy [address] [place] [id number] Rosina Christensen, MEL S/P total left hip arthroplasty (Primary Dx) 06/20/2024 8:30 AM CDT Therapy [facility] OP Physical Therapy [address] [place] [id number] Lorenzo Pierre PTA S/P total left hip arthroplasty (Primary Dx) 06/15/2024 2:00 PM CDT Therapy [facility] OP Physical Therapy [address] [place] [phone] Mildred Gonsales PT S/P total left hip arthroplasty (Primary Dx) 06/15/2024 Plan of Care Documentation [facility] OP Physical Therapy [address] [place] [phone] 06/09/2024 7:32 AM CDT Anesthesia Event [facility] OR [address] [place] [id number] Ishan Ferreira MD Taylor-White, Carlotta A., PREPRESS OPERATOR 06/09/2024 7:30 AM CDT - 06/09/2024 10:20 AM CDT Surgery [address] [address] Blayne Cano DO LEFT TOTAL HIP ARTHROPLASTY ANTERIOR 06/09/2024 5:17 AM CDT - 06/10/2024 1:57 PM CDT Hospital Encounter [facility] [address] [address] Blayne Cano DO S/P total left hip arthroplasty (Primary Dx); Primary osteoarthritis of left hip Discharge Disposition: Discharge to home or self care 06/08/2024 1:45 PM CDT - 06/08/2024 11:59 PM CDT Hospital Encounter [facility] Medical [facility] Bl [address] [address] Other abnormal and inconclusive findings on diagnostic imaging of breast Discharge Disposition: Discharge to home or self care 05/25/2024 11:00 AM CDT Office Visit [facility] Medical Group Neurology [address] [place] [phone] Arlen Brown NP Migraine without aura and without status migrainosus, not intractable (Primary Dx) 05/25/2024 Telephone [facility] PreAdmission Testing [address] [place] [address] Monica Alcantar, ALESSANDRA 05/24/2024 10:30 AM CDT Pre-Admission Testing [facility] PreAdmission Testing [address] [place] [phone] Preop examination (Primary Dx); Primary osteoarthritis of left hip; Preop testing; Elevated hemoglobin A1c 05/24/2024 9:00 AM CDT Office Visit [facility] Orthopedics and Sports Medicine [address] [place] [phone] Blayne Cano DO Primary osteoarthritis of left hip (Primary Dx) 05/23/2024 12:00 PM CDT Therapy [facility] OP Occup Therapy [address] [place] [address] Negrita Borrego, MARIANO Primary osteoarthritis of left hip (Primary Dx) 05/23/2024 Plan of Care Documentation [facility] OP Occup Therapy [address] [place] [phone] 05/23/[address] [address] Makenzie Phelps RN 05/02/2024 Orders Only [facility] Orthopedics and Sports Medicine [address] [place] [phone] Blayne Cano DO Primary osteoarthritis of left hip (Primary Dx) 05/01/2024 8:30 AM BARBER INSTRUCTOR Office Visit [facility] Orthopedics and Sports Medicine [address] [place] [phone] Blayne Cano DO Primary osteoarthritis of left hip (Primary Dx); Femoral acetabular impingement 04/12/2024 9:00 AM BARBER INSTRUCTOR Office Visit [facility], [address] [place] [phone] Adrian Rios PA Primary osteoarthritis of left hip (Primary Dx); Chronic SI joint pain 04/06/2024 10:30 AM BARBER INSTRUCTOR Office Visit [facility] Orthopaedic Surgery [address] [facility] Medical Office Building [address] [place] [phone] Enid Snell MD Left hip pain (Primary Dx) 04/06/2024 9:47 AM BARBER INSTRUCTOR - 04/06/2024 11:59 PM BARBER INSTRUCTOR Hospital Encounter [facility] [address] [facility] [address] [place] [phone] Left hip pain Discharge Disposition: Discharge to home or self care 03/29/2024 11:00 AM BARBER INSTRUCTOR Therapy [facility] OP Physical Therapy [address] [place] [address] [address] [place] [address] Michelle Underwood, PT Left low back pain, unspecified chronicity, unspecified whether sciatica present (Primary Dx) from Last 3 Months Immunizations Immunization Administration Dates Next Due DTaP 11/13/1983, 2,1978,09/15,1978 H1N1 All Forms 02/07/2009 H1N1 Inj 02/07/2009 Hep B Vaccine 11/06/1997,03/16/1997,01/10/1997 Influenza, Quadrivalent, Spl it, Intramuscular 12/31/2015 Influenza, Quadrivalent, Spl it, Preservative Free, Intramuscular 01/04/2017 Influenza, Trivalent, IM (MDV) 3,11/12/2011,01/05/2011,11/29,01/05/2008,11/18/2006 MMR 08/05/1992,09/14/1979 PPD TEST 12/17/2008, 9,01/04/2008,11/15 Pneumococcal Conjugate, Unspecified 12/21/2007,0 04/08/2006 Td, adsorbed 09/20/2002,08/05/1992 Tdap 09/13/2018,11/03/2010 Surgical History Surgery Date Site/Laterality Comments TONSILLECTOMY 03/01/2000 - 02/28/2001 Tonsillectomy SECTION 02/14/2012 UPPER GASTROINTESTINAL ENDOSCOPY 12/22/2019 BARIATRIC SURGERY 07/18/2020 gastric sleeve CHOLECYSTECTOMY 04/29/2005 - 05/29/2005 ORIF TALUS FRACTURE 03/01/1990 - 02/28/1991 Left with hardware NASAL SEPTOPLASTY W/ TURBINOPLASTY 03/01/2002 - 02/28/2003 Bilateral turbinectomy HAGLAND'S DEFORMITY EXCISION 03/01/2002 - 02/28/2003 Right with hardware BLADDER SURGERY monarch mesh 2005 KNEE SURGERY 03/01/2013 - 02/28/2014 Left menisicus COLONOSCOPY last 2017 hx of multiple colonoscopies with multiple hx of stents to common bile duct and pancreatic stents. last 2016 ABLATION 03/02/2023 D&C/ablation, tubal ligation performed on same day - per patient BREAST BIOPSY 11/19/2023 Right US GUIDED BIOPSY LYMPH NODE SUPERFICIAL LEFT 11/19/2023 N/A FL FLUORO GUIDED INJECTION HIP LEFT 01/05/2024 Left FOOT SURGERY Left 2 pins placed 1990 ORAL SURGERY wisdom teeth extracted COLPOSCOPY x 5 1996 SINUS SURGERY 2002; 2006 ERCP 2 stents 2006/ removed 2007 Medical History Medical History Date Comments Sinusitis Sinusitis Hx Other Medical Polycystic ovar ies Anxiety disorder Anxiety Asthma No inhalers, sta cammie she has bronchial restriction dx [address] Haynes. no problems since 2016 Depression Depression Anemia Anemia Gastroesophageal reflux disease GERD History of multiple allergies Al jose juan Type 2 diabetes mellitus (HCC) Hypertension Glaucoma Sleep apnea wears CPAP Palpitations hx of heart wor k, stress test 11/2023, ekg, echo Pneumonia h/o Chronic pain disorder L3-S1 pain management since 04/2022. steroid injections, medial nerve blocks x3, nerve ablations x2 last 11/24/2022-unsuccessful per pt . referred to neurosurgeon Obesity Thyroid nodule Rheumatoid arthritis (HCC) Seasonal allergies Wears glasses Arthritis Bulge of lumbar disc 2 bulging d isc Lumbar stenosis Chipped tooth top front, 2 on bottom right Last menstrual period (LMP) > 10 days ago 01/2023 Family History Medical History Relation Name Comments No Known Problems Daughter Arthritis Father Serge Depression Father Serge Hypertension Father Serge Rheum arthritis Father Serge Rheumatoid a rthritis; Diabetes Maternal Grandmother Jaylene Diabetes Mother Pat Hypertension Mother Pat Lupus Mother Pat Systemic lupus erythematosus; Breast cancer Mother's Sister 1 Breast cancer Mother's Sister 2 No Known Problems Sister Relation Name Status Comments Daughter Alive Father Serge Maternal Grandmother Jaylene Mother Pat Alive Mother's Sister 1 Mother's Sister 2 Alive Sister Alive Social History Tobacco Use Types Packs/Day Years Used Date Smoking Tobacco: Former Cigarettes 0.3 12 0 03/21/1996 - 03/21/2008 Passive Smoke Exposure: Past Smokeless Tobacco: Never Passive Exposure Comments:fa ther Alcohol Use Standard Drinks/Week Comments Yes 0 (1 standard drink = 0.6 oz pur e alcohol) On rare occasion [facility] Utilities Answer Date Recorded In the past 12 months has th e electric, gas, oil, or water company threatened to shut off services in your home? No 06/09/2024 Social Connection and Isolat ion Panel [NHANES] Answer Date Recorded In a typical week, how many times do you talk on the phone with family, friends, or neighbors? More than three times a week 06/09/2024 How often do you get togethe r with friends or relatives? More than three times a week 06/09/2024 How often do you attend chur ch or restorationist services? 1 to 4 times per year 06/09/2024 Do you belong to any clubs o r organizations such as sabianism groups, unions, fraternal or athletic groups, or school groups? No 06/09/2024 How often do you attend meet ings of the clubs or organizations you belong to? Never 06/09/2024 Are you , , di vorced, , never , or living with a partner? Never 06/09/2024 AUDIT-C Answer Date Recorded Q1: How often do you have a drink containing alcohol? Never 06/09/2024 Q2: How many drinks containi ng alcohol do you have on a typical day when you are drinking? Patient does not drink Q3: How often do you have si x or more drinks on one occasion? Never 06/09/2024 Overall Financial Resource Strain (CARDIA) Answe r Date Recorded How hard is it for you to pa y for the very basics like food, housing, medical care, and heating? Not hard at all 06/09/2024 PHQ-2 Answer Date Recorded PHQ-2 Total Score (If total score is 3 or more points, staff should administer the PHQ-9) 0 08/29/2020 Hunger Vital Sign Answer Date Recorded Within the past 12 months, y ou worried that your food would run out before you got the money to buy more. Never true 06/10/19 25 Within the past 12 months, t he food you bought just didn't last and you didn't have money to get more. Never true 06/09/2024 PRAPARE - Transportation Answer Date Re corded In the past 12 months, has l ack of transportation kept you from medical appointments or from getting medications? No 05/30 In the past 12 months, has l ack of transportation kept you from meetings, work, or from getting things needed for daily living? No 06/09/2024 Housing Stability Vital Sign Answer Binh e Recorded In the last 12 months, was t here a time when you were not able to pay the mortgage or rent on time? No 06/09/2024 In the past 12 months, how m any times have you moved where you were living? 0 06/09/2024 At any time in the past 12 m [facility], were you homeless or living in a group home (including now)? No 06/09/2024 Personal Safety Answer Date Recorded Have you ever been in or are you currently in a harmful physical or emotional relationship or is someone making you feel afraid or unsafe? Denies 06/09/2024 Comments No Sex and Gender Information Value Date Recorded Sex Assigned at Not on file Legal Sex Female 2:05 AM BARBER INSTRUCTOR Gender Identity Female 03/19/2020 11:04 AM BARBER INSTRUCTOR Sexual Orientation Straight 03/19/2020 11 :04 AM BARBER INSTRUCTOR Obstetrics History Para Term AB IAB SAB Ectopic Multiple Livin g Live Births 2 2 1 1 1 1 Date Outcome GA Total Labor Labor/2nd/3rd Weight Sex Type Anes PTL Karla A1 A5 Name Clin Term 012 34w 6d 2.324 kg (5 lb 2 oz) F CS-LT ranv Epidur al N Livin g 7 8 HERND ON,GI RL1SH AWNA Delivery Location:[facility] Comments:No observed a nomalies Last Filed Vital Signs Vital Sign Reading Time Taken Comments Blood Pressure 97/68 06/10/2024 11:42 AM CDT Pulse 94 06/10/2024 11:42 AM CDT Temperature 35.7 C (96.3 F) 06/10/2024 11:42 AM CDT Respiratory Rate 14 06/10/2024 11:42 AM CDT Oxygen Saturation 98% 06/10/2024 11:42 AM CDT Inhaled Oxygen Concentration - - Weight 93.5 kg (206 lb 2.1 oz) 06/22/2024 8:36 A M CDT Height 170.2 cm (5' 7 ) 06/22/2024 8:36 AM CDT Body Mass Index 32.28 06/22/2024 8:36 AM CDT Plan of Treatment Health Maintenance Due Date Last Done Comments Colon Cancer Screening-Colonoscopy 1978 Hepatitis C Screening 1978 Dilated Eye Exam 1978 Regular Well Visit/Exam 18-64 1996 Pneumococcal vaccine <65 (2 of 2 - PPSV23) 02/15/2008 12/21/2007, 04/08/2006 Cervical Cancer Screening 10/08/2018 10/08/2017 Lipid Panel 03/12/2021 03/12/2020, 08/30, 12/17/2017, Additional history exists Albumin Creatinine Ratio, Urine 08/17/2021 08/17/2020 Depression Screening 08/29/2021 08/29/2020, 05/21/2020, 05/21/2020, Additional history exists Foot Exam 03/27/2022 03/27/2021, 04/30, 03/05/2020 Covid-19 Vaccine ( season) 2023 09/06/2020, 08/02/2020 Breast Cancer Screening-Mammogram 10/17/2024 10/18/2023, 09/17/2022 Influenza Vaccine (Season Ended) 2024 01/04/2017, 12/31/2015, 12/12/2012, Additional history exists Hemoglobin A1C 11/24/2024 05/24/2024, 05, 03/27/2021, Additional history exists eGFR 06/10/2025 06/10/2024, 05/30, 05/24/2024, Additional history exists DTaP/Tdap/Td Vaccine (8 - Td or Tdap) 09/13/2028 09/13/2018, 11/03/2010, 09/20/2002, Additional history exists HPV Vaccines Aged Out No longer eligi ble based on patient's age to complete this topic Goals Goal Patient Goal Type Associated Problems Recent Progress Patient-Stated? Author CCM Chronic Pain Care Plan Chronic Care Management No change(02/07 2:07 PM BARBER INSTRUCTOR) No Jeanette Thurman, ALESSANDRA Note: Problem: Chronic Pain Goals: 1. Minimize further functional decline 2. Maximize quality of life 3. Control pain Strategies: - Activity/exercise program recommendation - Conservative stepwise pain medicine strategy with multi-disciplinary approach - Recommend healthy lifestyle strategies and compensatory methods as needed Medical Devices Implanted Type Area Chlorine Operator Device Identifier Shelf Expiration Date Model / Serial / Lot Stream Media Partnership Marker Biospy Site Mini Cork Shape [employer] Anais - [id number] Implanted:Qty: 1 on 11/19/2023 by Colin Villalba MD at [facility], [place] Right: Breast [employer] Partnership [id number] 07/07/2024 KRISTENK-JUAN C O / / [id number] [employer] Partnership Marker Tissue Deployment Device [id number] [place] [employer] [id number] - [id number] Implanted:Qty: 1 on 11/19/2023 by Colin Villalba MD at [facility] [place] Axilla [employer] Limited Partnership [id number] 01/11/2028 [id number] / / [id number] Pins Left: Ankle [place] Right: Heel [employer]uy [employer] [place] 54mm Sector Hip Shell Acetabular Gription Sterile Latex Free [id number] - [id number] Implanted:Qty: 1 on 06/09/2024 by Blayne Cano DO at [facility] Left: Hip [employer] [id number] 02/28/2034 [id number] / / [id number] Dep[employer] [place] 54mm 36mm Hip Neutral Liner Acetabular Altrx Sterile Latex Free [id number] - [id number] Implanted:Qty: 1 on 06/09/2024 by Blayne Cano DO at [facility] Left: Hip [employer] [id number] 02/28/2029 [id number] / / [id number] [employer] [place] 54mm Sector Hip Shell Acetabular Gription Sterile Latex Free [id number] - [id number] Implanted:Qty: 1 on 06/09/2024 by Blayne Cano DO at [facility] Left: Hip [employer] [id number] 02/28/2034 [id number] / / [id number] Dep[employer] Actis Collared Hip 02/11 6 Standard Offset Stem Femoral [id number] - [id number] Implanted:Qty: 1 on 06/09/2024 by Blayne Cano DO at [facility] Left: Hip [employer] [id number] 03/31/2034 [id number] / / [id number] Dep[employer] Articul/Elia 36mm Cementless Hip +8.5mm 02/11 Taper Head Femoral Latex Free 1365-36-330 - [id number] Implanted:Qty: 1 on 06/09/2024 by Blayne Cano DO at [facility] Left: Hip [employer] [id number] 02/28/2029 1365-36-330 / / [id number] Procedures Procedure Name Priority Date/Time Associated Diagnosis Comments POCT GLUCOSE DEVICE Routine 06/10/2024 7 :58 AM CDT EGFR Routine 06/10/2024 2:46 AM CDT DIFFERENTIAL AUTO Routine 06/10/2024 2:4 6 AM CDT CBC WITH AUTO DIFFERENTIAL Routine 06/10/2024 2:46 AM CDT BASIC METABOLIC PANEL Routine 06/10/2024 2:46 AM CDT POCT GLUCOSE DEVICE Routine 06/09/2024 8 :42 PM CDT POCT GLUCOSE DEVICE Routine 06/09/2024 4 :22 PM CDT DIFFERENTIAL AUTO Routine 06/09/2024 1:0 1 PM CDT CBC WITH AUTO DIFFERENTIAL Routine 06/09/2024 1:01 PM CDT EGFR STAT 06/09/2024 11:33 AM CDT CREATININE STAT 06/09/2024 11:33 AM CDT HEPATIC FUNCTION PANEL STAT 06/09/2024 11:33 AM CDT CBC WITHOUT DIFFERENTIAL STAT 06/09/2024 11:33 AM CDT PROTIME-INR STAT 06/09/2024 11:33 AM CDT POCT GLUCOSE DEVICE Routine 06/09/2024 11:22 AM CDT XR HIP LEFT W PELVIS 2 OR 3 VIEWS ED Urgent/IP Urgent 06/09/2024 10:40 AM CDT POCT GLUCOSE DEVICE Routine 06/09/2024 10:24 AM CDT FL FLUOROSCOPY < 1 HOUR IP Routine 06/09/2024 9:35 AM CDT IL AN PROCEDURE PLACEHOLDER Routine 06/09/2024 7:58 AM CDT IL AN ELECTIVE ENDOTRACHEAL AIRWAY Routine 06/09/2024 7:58 AM CDT ARTHROPLASTY TOTAL HIP - ANTERIOR APPROACH 06/09/2024 7:32 AM CDT Primary osteoarthritis of left hip Case Notes LTHA-anterior POC BLOOD GAS AND CHEMISTRIES, VENOUS Routine 06/09/2024 5:59 AM CDT ANTIBODY SCREEN Timed 06/09/2024 5:57 AM CDT ABO/RH Timed 06/09/2024 5:57 AM CDT TYPE AND SCREEN Timed 06/09/2024 5:57 AM CDT DIAGNOSTIC MAMMOGRAM RIGHT W LENIN Schedule Routine, Read Routine (OP Routine) 06/08/2024 2:06 PM CDT Other abnormal and inconclusive findings on diagnostic imaging of breast EGFR Routine 05/24/2024 10:39 AM CDT Primary osteoarthritis of left hip Preop testing DIFFERENTIAL AUTO Routine 05/24/2024 10:39 AM CDT Primary osteoarthritis of left hip Preop testing ANTIBODY SCREEN Routine 05/24/2024 10:39 AM CDT Primary osteoarthritis of left hip Preop testing ABO/RH Routine 05/24/2024 10:39 AM CDT Primary osteoarthritis of left hip Preop testing COMPREHENSIVE METABOLIC PANEL Routine 05/24/2024 10:39 AM CDT Primary osteoarthritis of left hip Preop testing CBC WITH AUTO DIFFERENTIAL Routine 05/24/2024 10:39 AM CDT Primary osteoarthritis of left hip Preop testing HEMOGLOBIN A1C Routine 05/24/2024 10:39 AM CDT Primary osteoarthritis of left hip Preop testing Elevated hemoglobin A1c TYPE AND SCREEN 14 DAY Routine 05/24/2024 10:39 AM CDT Primary osteoarthritis of left hip Preop testing INFECTION PREVENTION MRSA ONLY (STAPHYLOCOCCUS AUREUS) PCR Routine 05/24/2024 10:39 AM CDT Primary osteoarthritis of left hip Preop testing ECG 12-LEAD Routine 05/24/2024 10:31 AM CDT Preop examination XR HIP LEFT W PELVIS 2 OR 3 VIEWS Schedule Routine, Read Routine (OP Routine) 04/06/2024 10:03 AM BARBER INSTRUCTOR Left hip pain SCREENING MAMMOGRAM BILATERAL W LENIN Schedule Routine, Read Routine (OP Routine) 10/18/2023 9:14 AM CDT Screening mammogram, encounter for ALBUMIN CREATININE RATIO, URINE Routine 08/17/2020 11:15 AM CDT Type 2 diabetes mellitus with hyperglycemia, with long-term current use of insulin (HCC) LIPID PANEL Routine 09/26/2019 9:10 PM CDT HM PAP SMEAR WITH HPV Routine 10/08/2017 from Last 3 Months or Most Recently Relevant to Health Maintenance Results * POCT glucose (06/10/2024 7:58 AM CDT) Glucose, POC 126 70 - 199 mg/dL Glucose comment 1 RN/MD Notified CHARLEY SEYMOUR Blood 06/10/2024 7:58 AM CDT 06/10/2024 7:58 AM CDT us Blayne Cano DO LAB POCT ORDERABLES - DEVICE F inal Result CHARLEY [address] [facility] Department [place] [address] * eGFR (06/10/2024 2:46 AM CDT) eGFR >90 >=60 mL/min/1. 73 m2 Comment: Interpretive Data Reference Interval Normal >/= 90 mL/min/1.73m2 Mildly decreased* 60 - 89 mL/min/1.73m2 Mildly to moderately decreased 45 - 59 mL/min/1.73m2 Moderately to severely decreased 30 - 44 mL/min/1.73m2 Severely decreased 15 - 29 mL/min/1.73m2 Kidney Failure < 15 mL/min/1.73m2 *Relative to young adult level Estimated glomerular filtration rate is determined by the 2020 CKD-EPI equation recommended by the National Kidney Foundation (A Unifying Approach to GFR Estimation: Recommendations of the NKF-ASK Task Force on Reassessing the Inclusion of Race in Diagnosing Kidney Disease, JASN 2020). The CKD-EPI equation should not be used for patients with unstable renal function and has not been validated in children and those over 70. Current interpretive data was last reviewed 2020. Blood 06/10/2024 2:46 AM CDT 06/10/2024 2:56 AM CDT Stephanie GUADALUPE LAB BLOOD ORDERABLES Final Result [facility] [address] [facility] Department [place] [address] * (ABNORMAL) Differential, auto (06/10/2024 2:46 AM CDT) Neutrophil abs 9.33(H) 1.50 - 6.50 K/cumm Imm gran abs 0.06 0.00 - 0.10 K/cumm [facility] Lymphocyte abs 1.44 0.80 - 3.30 K/cumm [facility] Monocyte abs 0.78 0.20 - 0.80 K/cumm [facility] Eosinophil abs 0.00 0.00 - 0.50 K/cumm [facility] Basophil abs 0.02 0.00 - 0.10 K/cumm [facility] Neutrophil pct 80.2 % [facility] Comment: Interpretive Data Percent cell count reference ranges are not reported, since discordance with absolute values may lead to misinterpretation of CBC data. Current Interpretive Data was last revised on 2017. Imm gran pct 0.5 % [facility] Comment: Interpretive Data Percent cell count reference ranges are not reported, since discordance with absolute values may lead to misinterpretation of CBC data. Current Interpretive Data was last revised on 2017. Lymphocyte pct 12.4 % [facility] Comment: Interpretive Data Percent cell count reference ranges are not reported, since discordance with absolute values may lead to misinterpretation of CBC data. Current Interpretive Data was last revised on 2017. Monocyte pct 6.7 % [facility] Comment: Interpretive Data Percent cell count reference ranges are not reported, since discordance with absolute values may lead to misinterpretation of CBC data. Current Interpretive Data was last revised on 2017. Eosinophil pct 0.0 % [facility] Comment: Interpretive Data Percent cell count reference ranges are not reported, since discordance with absolute values may lead to misinterpretation of CBC data. Current Interpretive Data was last revised on 2017. Basophil pct 0.2 % [facility] Comment: Interpretive Data Percent cell count reference ranges are not reported, since discordance with absolute values may lead to misinterpretation of CBC data. Current Interpretive Data was last revised on 2017. Blood 06/10/2024 2:46 AM CDT 06/10/2024 2:56 AM CDT Nancy GUADALUPE LAB BLOOD ORDERABLES Final Re sult [address] Department [place] [address] * (ABNORMAL) CBC with auto differential (06/10/2024 2:46 AM CDT) WBC 11.63(H) 3.80 - 9.90 K/cumm Hgb 9.7(L) 11.9 - 15.5 g/dL [facility] Hct 29.7(L) 35.6 - 45.5 % [facility] Plt 186 150 - 400 K/cumm [facility] MPV 10.9 9.1 - 12.3 fL [facility] RBC 3.49(L) 3.90 - 5.20 M/cumm [facility] MCV 85.1 81.3 - 96.4 fL [facility] MCH 27.8 27.1 - 33.3 pg [facility] MCHC 32.7 32.3 - 35.7 g/dL [facility] RDW CV 13.7 11.1 - 14.9 % [facility] RDW SD 41.9 35.7 - 48.1 fL [facility] NRBC abs 0.00 0.00 - 0.01 K/cumm [facility] Blood 06/10/2024 2:46 AM CDT 06/10/2024 2:56 AM CDT Nancy GUADALUPE LAB BLOOD ORDERABLES Final Re sult [facility]LEY [address] [facility] Department [place] [address] * (ABNORMAL) Basic metabolic panel (06/10/2024 2:46 AM CDT) Sodium 138 135 - 145 mmol/L Potassium, pl 3.4 3.3 - 4.9 mmol/L [facility] Chloride 102 97 - 110 mmol/L [facility] CO2 29 22 - 32 mmol/L [facility] Anion gap 7 2 - 15 mmol/L [facility] BUN 7 6 - 25 mg/dL [facility] Creatinine 0.69 0.60 - 1.10 mg/dL [facility] Glucose 126 70 - 199 mg/dL [facility] Comment: Interpretive Data Fasting glucose >/= 126 mg/dl is diagnostic for diabetes. Fasting is defined as no caloric intake for at least 8 hours. Fasting glucose between 100 mg/dl to 125 mg/dl is diagnostic of prediabetes. In a patient with classic symptoms of hyperglycemia or hyperglycemic crisis, a random glucose >/= 200 mg/dl is diagnostic for diabetes. In the absence of unequivocal hyperglycemia, results should be confirmed by repeat testing. The classification and Diagnosis of Diabetes Diabetes Care 2021; 46: S19-S40. Current interpretive data was last revised 2022. Calcium 8.3(L) 8.5 - 10.3 mg/dL [facility] Blood 06/10/2024 2:46 AM CDT 06/10/2024 2:56 AM CDT Stephanie GUADALUPE LAB BLOOD ORDERABLES Final Result [facility] [address] [facility] Department [place] [address] * POCT glucose (06/09/2024 8:42 PM CDT) Glucose, POC 198 70 - 199 mg/dL Glucose comment 1 Follow Protocol [facility] Blood 06/09/2024 8:42 PM CDT 06/09/2024 8:42 PM CDT Leeo DO LAB POCT ORDERABLES - DEVICE F inal Result Performing Organization Address City/[facility]/ZIP Co de Phone Number CHARLEY [address] [address] * (ABNORMAL) POCT glucose (06/09/2024 4:22 PM CDT) [facility] Glucose, POC 206(H) 70 - 199 mg/dL Blood 06/09/2024 4:22 PM CDT 06/09/2024 4:22 PM CDT [employer] DO LAB POCT ORDERABLES - DEVICE F inal Result Performing Organization Address [facility]/[place]UST Co de Phone Number CHARLEY [address] [phone] * (ABNORMAL) Differential, auto (06/09/2024 1:01 PM CDT) [facility] Neutrophil abs 15.44(H) 1.50 - 6.50 K/cumm Imm gran abs 0.18(H) 0.00 - 0.10 K/cumm [facility] Lymphocyte abs 1.18 0.80 - 3.30 K/cumm [facility] Monocyte abs 0.30 0.20 - 0.80 K/cumm [facility] Eosinophil abs 0.00 0.00 - 0.50 K/cumm [facility] Basophil abs 0.03 0.00 - 0.10 K/cumm [facility] Neutrophil pct 90.0 % [facility] Comment: Interpretive Data Percent cell count reference ranges are not reported, since discordance with absolute values may lead to misinterpretation of CBC data. Current Interpretive Data was last revised on 2017. Imm gran pct 1.1 % [facility] Comment: Interpretive Data Percent cell count reference ranges are not reported, since discordance with absolute values may lead to misinterpretation of CBC data. Current Interpretive Data was last revised on 2017. Lymphocyte pct 6.9 % [facility] Comment: Interpretive Data Percent cell count reference ranges are not reported, since discordance with absolute values may lead to misinterpretation of CBC data. Current Interpretive Data was last revised on 2017. Monocyte pct 1.8 % [facility] Comment: Interpretive Data Percent cell count reference ranges are not reported, since discordance with absolute values may lead to misinterpretation of CBC data. Current Interpretive Data was last revised on 2017. Eosinophil pct 0.0 % [facility] Comment: Interpretive Data Percent cell count reference ranges are not reported, since discordance with absolute values may lead to misinterpretation of CBC data. Current Interpretive Data was last revised on 2017. Basophil pct 0.2 % [facility] Comment: Interpretive Data Percent cell count reference ranges are not reported, since discordance with absolute values may lead to misinterpretation of CBC data. Current Interpretive Data was last revised on 2017. Blood 06/09/2024 1:01 PM CDT 06/09/2024 1:10 PM CDT us Nancy GUADALUPE LAB BLOOD ORDERABLES Final Re sult [facility] [address] [facility] Department [place] [address] * (ABNORMAL) CBC with auto differential (06/09/2024 1:01 PM CDT) WBC 17.13(H) 3.80 - 9.90 K/cumm Hgb 11.8(L) 11.9 - 15.5 g/dL [facility] Hct 35.0(L) 35.6 - 45.5 % [facility] Plt 244 150 - 400 K/cumm [facility] MPV 10.9 9.1 - 12.3 fL [facility] RBC 4.18 3.90 - 5.20 M/cumm [facility] MCV 83.7 81.3 - 96.4 fL [facility] MCH 28.2 27.1 - 33.3 pg [facility] MCHC 33.7 32.3 - 35.7 g/dL [facility] RDW CV 13.7 11.1 - 14.9 % [facility] RDW SD 42.0 35.7 - 48.1 fL [facility] NRBC abs 0.00 0.00 - 0.01 K/cumm [facility] Blood 06/09/2024 1:01 PM CDT 06/09/2024 1:10 PM CDT Nancy GUADALUPE LAB BLOOD ORDERABLES Final Re sult Performing Organization Address City/[facility]/ZIP Co de Phone Number [address] [place] [address] * eGFR (06/09/2024 11:33 AM CDT) eGFR >90 >=60 mL/min/1. 73 m2 Comment: Interpretive Data Reference Interval Normal >/= 90 mL/min/1.73m2 Mildly decreased* 60 - 89 mL/min/1.73m2 Mildly to moderately decreased 45 - 59 mL/min/1.73m2 Moderately to severely decreased 30 - 44 mL/min/1.73m2 Severely decreased 15 - 29 mL/min/1.73m2 Kidney Failure < 15 mL/min/1.73m2 *Relative to young adult level Estimated glomerular filtration rate is determined by the 2020 CKD-EPI equation recommended by the National Kidney Foundation (A Unifying Approach to GFR Estimation: Recommendations of the NKF-ASK Task Force on Reassessing the Inclusion of Race in Diagnosing Kidney Disease, JASN 2020). The CKD-EPI equation should not be used for patients with unstable renal function and has not been validated in children and those over 70. Current interpretive data was last reviewed 2020. Blood 06/09/2024 11:3 3 AM CDT 06/09/2024 11:53 AM CDT Stephanie GUADALUPE LAB BLOOD ORDERABLES Final Result Performing Organization Address City/[facility]/ZIP Co de Phone Number [address] [place] [address] * Protime-INR (06/09/2024 11:33 AM CDT) PT 13.2 12.0 - 14.6 sec INR 1.0 0.9 - 1.2 [facility] Comment: Ref Range High Interpretive data Oral anticoagulant therapeutic ranges: Venous thromboembolism prophylaxis or treatment: 2.0-3.0 CARDIOLOGY Standard range: 2.0-3.0 High-intensity range: 2.5-3.5 Refer to indication-specific guidelines for appropriate target ranges for prosthetic heart valve replacement. Current interpretive data was last revised on 2019. Blood 06/09/2024 11:3 3 AM CDT 06/09/2024 11:53 AM CDT Narrative [facility] - 06/09/2024 12:04 PM CDT Baseline prior to apixaban initiation. Stephanie GUADALUPE LAB BLOOD ORDERABLES Final Result [facility] [address] [facility] Department [place] [address] * (ABNORMAL) CBC without differential (06/09/2024 11:33 AM CDT) [facility] Signature WBC 11.60(H) 3.80 - 9.90 K/cumm Hgb 11.5(L) 11.9 - 15.5 g/dL [facility] Hct 35.0(L) 35.6 - 45.5 % [facility] Plt 228 150 - 400 K/cumm [facility] MPV 11.1 9.1 - 12.3 fL [facility] RBC 4.14 3.90 - 5.20 M/cumm [facility] MCV 84.5 81.3 - 96.4 fL [facility] MCH 27.8 27.1 - 33.3 pg [facility] MCHC 32.9 32.3 - 35.7 g/dL [facility] RDW CV 13.8 11.1 - 14.9 % [facility] RDW SD 42.2 35.7 - 48.1 fL [facility] NRBC abs 0.00 0.00 - 0.01 K/cumm [facility] Blood 06/09/2024 11:3 3 AM CDT 06/09/2024 11:53 AM CDT Narrative CHARLEY - 06/09/2024 11:58 AM CDT Baseline prior to apixaban initiation. Stephanie GUADALUPE LAB BLOOD ORDERABLES Final Result Performing Organization Address City/[facility]/[place] Co de Phone Number [address] [place] [address] * Creatinine (06/09/2024 11:33 AM CDT) Creatinine 0.63 0.60 - 1.10 mg/dL Blood 06/09/2024 11:3 3 AM CDT 06/09/2024 11:53 AM CDT [facility] 06/09/[facility] 12:27 PM CDT Baseline prior to apixaban initiation. Stephanie GUADALUPE LAB BLOOD ORDERABLES Final Result Performing Organization Address [facility]/[place] Co de Phone Number [address] [place] [address] * Hepatic function panel (06/09/2024 11:33 AM CDT) Bilirubin, total 0.6 0.1 - 1.2 mg/dL Bilirubin, direct 0.3 0.1 - 0.3 mg/dL [facility] Protein, pl 6.8 6.5 - 8.5 g/dL [facility] Albumin 3.8 3.5 - 5.0 g/dL [facility] Alk phos 80 40 - 130 Units/L [facility] ALT 13 7 - 45 Units/L [facility] [facility] AST 23 10 - 45 Units/L [facility] Blood 06/09/2024 11:3 3 AM CDT 06/09/2024 11:53 AM CDT Narrative [facility] - 06/09/2024 12:27 PM CDT Baseline prior to apixaban initiation. Stephanie GUADALUPE LAB BLOOD ORDERABLES Final Result Performing Organization Address City/[facility] Co de Phone Number [address] [place] [address] * POCT glucose (06/09/2024 11:22 AM CDT) Glucose, POC 197 70 - 199 mg/dL Blood 06/09/2024 11:2 2 AM CDT 06/09/2024 11:22 AM CDT Blayne Jerome DO LAB POCT ORDERABLES - DEVICE F inal Result [facility] [address] [facility] Department [place] [address] * XR Hip Left 2 or 3 Views W Pelvis (06/09/2024 10:40 AM CDT) Anatomical Region Laterality Modality Lower Extremities, Hip, Pelvis Left C omputed Radiography 06/09/2024 11:2 0 AM CDT Narrative 06/09/2024 11:21 AM CDT EXAM DESCRIPTION: XR HIP LEFT 2 OR 3 VIEWS W PELVIS REASON FOR STUDY: postop hip replacement Post op left hip surgery today FINDINGS: Two views of the left hip and pelvis are submitted for interpretation and compared to prior 04/06/2024. New left total hip arthroplasty in near anatomic position. Soft tissue gas is present about the left hip. No fracture seen. Moderate right hip osteoarthritis. IMPRESSION: New left total hip arthroplasty in near anatomic position. THIS IS AN ELECTRONICALLY VERIFIED FINAL REPORT 06/09/2024 11:21 AM - Electronically signed by Carlitos Jean M.D. T: Report ID: [id number] Reading Location: [id number] Procedure Note Carlitos Jean MD - 06/09/2024 EXAM DESCRIPTION: XR HIP LEFT 2 OR 3 VIEWS W PELVIS REASON FOR STUDY: postop hip replacement Post op left hip surgery today FINDINGS: Two views of the left hip and pelvis are submitted for interpretation and compared to prior 04/06/2024. New left total hip arthroplasty in near anatomic position. Soft tissuegas is present about the left hip. No fracture seen. Moderate right hip osteoarthritis. IMPRESSION: New left total hip arthroplasty in near anatomic position. THIS IS AN ELECTRONICALLY VERIFIED FINAL REPORT 06/09/2024 11:21 AM - Electronically signed by Carlitos Jean M.D. T: Report ID: [id number] Reading Location: [place] [address] Stephanie GUADALUPE IMG XR PROCEDURES Final Re sult * POCT glucose (06/09/2024 10:24 AM CDT) Glucose, POC 185 70 - 199 mg/dL Glucose comment 1 Use This Result [facility] Blood 06/09/2024 10:2 4 AM CDT 06/09/2024 10:24 AM CDT Blayne Cano DO LAB POCT ORDERABLES - DEVICE F inal Result Performing Organization Address City/[facility]/ZIP Co de Phone Number [facility] [address] [facility] Department [place] [address] * FL Fluoroscopy < 1 Hour (06/09/2024 9:35 AM CDT) Narrative [id number] - 06/09/2024 9:37 AM CDT The images from this study are not interpreted by Radiology. Please refer to the physician's procedure / OR operative note. Blayne Cano DO IMG FLUOROSCOPY PROCEDURES Fin al Result Performing Organization Address City/[facility]/ZIP Co de Phone Number [email or web address] * [place] AN ELECTIVE ENDOTRACHEAL AIRWAY, [place] AN PROCEDURE PLACEHOLDER (06/09/2024 7:58 AM CDT) Narrative Rossy Lambert CRNA - 06/09/2024 7:58 AM CDT Rossy Lambert CRNA 06/09/2024 7:58 AM Airway Patient location: OR Urgency: elective Date/time: 06/09/2024 7:36 AM Indications for airway management: anesthesia and airway protection Difficult airway: no Staff: Placed by: HOTEL GENERAL MANAGER: Rossy Lambert CRNA Emergent airway documentation: Risks and benefits discussed: yes Consent obtained: yes Consent given by: patient Airway prep: Preoxygenated: yes Patient position: sniffing Mask difficulty assessment: 2 - vent by mask + OA or adjuvant Spontaneous ventilation during airway: absent Sedation level during airway: GA Final airway details: Final airway type: endotracheal airway Tube type: ETT ETT size: 7.0 mm Cuffed: yes Technique used for successful ETT placement: direct laryngoscopy Devices/Methods used in placement: intubating stylet Insertion site: oral Blade type: Christian Blade size: 2 Cormack-Lehane (direct): grade I - full view of glottis Cuff volume: 8 mL Cuff inflated with: air Placement verified by: auscultation and CO2 detection Airway secured with: other (pink tape) Number of attempts: 1 Additional comments: Gums/lips/teeth atraumatic after intubation Ishan Ferreira MD ANESTHESIA ORDERABLES Fi nal Result * POC Blood Gas and Chemistries, Venous - (06/09/2024 5:59 AM CDT) pH,cali POC 7.42 7.32 - 7.43 pCO2, cali POC 41 40 - 50 mmHg [facility] pO2,cali POC 49 mmHg [facility] Comment: Interpretive Data No reference range established. Current interpretive data was last revised 2019. HCO3, cali (Calc) POC 27 20 - 30 mmol/L [facility] Base excess, cali POC 2 mmol/L [facility] Comment: Interpretive Data No reference range established. Current interpretive data was last revised 2019. Hemoglobin, cali POC 12.9 11.9 - 15.5 g/dL [facility] Hematocrit, clai POC 38.0 35.6 - 45.5 % [facility] Sodium, cali POC 138 135 - 145 mmol/L [facility] Potassium, cali POC 3.6 3.3 - 4.9 mmol/L [facility] Comment: Interpretive Data This method is not able to assess for hemolysis, which may falsely increase potassium concentrations. If further testing is needed to evaluate this result, consider in-laboratory plasma potassium. Current Interpretive Data was last revised on 2021. Glucose, cali POC 140 70 - 199 mg/dL [facility] Ionized Calcium, cali POC 4.80 4.50 - 5.10 mg/dL [facility] Blood 06/09/2024 5:59 AM CDT 06/09/2024 5:59 AM CDT [employer] DO LAB POCT ORDERABLES - DEVICE F inal Result Performing Organization Address City/[facility]/ZIP Co de Phone Number [address] [address] * ABO/Rh (06/09/2024 5:57 AM CDT) ABO/Rh O Positive Blood 06/09/2024 5:57 AM CDT 06/09/2024 6:00 AM CDT Narrative [facility] - 06/09/2024 6:36 AM CDT Has the patient had Daratumumab or Isatuximab in the past 6 months?->Unknown [employer] BLOOD BANK TEST ORDERABLES Final Result Performing Organization Address [facility] de Phone Number [address] [address] * Antibody screen (06/09/2024 5:57 AM CDT) Juanis, indirect, Gel Interpretation Negative ABSC Blood 06/09/2024 5:57 AM CDT 06/09/2024 6:00 AM CDT Narrative [facility] - 06/09/2024 6:36 AM CDT Has the patient had Daratumumab or Isatuximab in the past 6 months?->Unknown [employer] LAB BLOOD BANK TEST ORDERABLES Final Result Performing Organization Address [facility] Co de Phone Number [address] [address] * Diagnostic Mammogram Right W Lenin (06/08/2024 2:06 PM CDT) Anatomical Region Laterality Modality Breast Right Mammography 06/08/2024 2:44 PM CDT Narrative 06/08/2024 2:50 PM CDT EXAM DESCRIPTION: DIAGNOSTIC MAMMOGRAM RIGHT W LENIN REASON FOR STUDY: 44-year-old female presents for follow-up status post benign ultrasound-guided right breast biopsy in October 2023. TECHNIQUE: CC and LM views of the right were obtained with digital technique using breast tomosynthesis with C view. COMPARISON: Ultrasound-guided breast biopsy dated 11/19/2023. Diagnostic breast ultrasound dated 11/04/2023. Mammography dated 11/04/2023, 10/18/2023, 10/08/2022, and 09/17/2022. FINDINGS: DENSITY: There are scattered areas of fibroglandular density. MAMMOGRAM FINDINGS: There is a biopsy marking clip in expected position at approximately the 12 o'clock position of the right breast, middle depth. This correlates with site of prior benign ultrasound-guided biopsy performed in October 2023. Residual architectural distortion at the biopsy clip site has not suspiciously changed and correlates with the biopsied tissue pathology (benign stromal fibrosis). There is no new suspicious finding in the right breast on mammogram. IMPRESSION: 1. Expected mammographic appearance of the right breast following benign ultrasound-guided biopsy as detailed above. 2. No new suspicious finding in the right breast on mammogram. Monthly breast self-examination and annual screening mammography are recommended. The patient will be due for her next screening mammogram on 10/18/2024. The patient was notified of these findings and recommendations at the time of the examination. BIRADS: 2 Benign findings. THIS IS AN ELECTRONICALLY VERIFIED FINAL REPORT 06/08/2024 2:50 PM - Electronically signed by Yoni James M.D., MD: Report ID: [id number] Reading Location: MAMME Colin Villalba MD IM MAMMO PROCEDURES Final Res ult * eGFR (05/24/2024 10:39 AM CDT) Pathologist [facility] eGFR >90 >=60 mL/min/1. 73 m2 Comment: Interpretive Data Reference Interval Normal >/= 90 mL/min/1.73m2 Mildly decreased* 60 - 89 mL/min/1.73m2 Mildly to moderately decreased 45 - 59 mL/min/1.73m2 Moderately to severely decreased 30 - 44 mL/min/1.73m2 Severely decreased 15 - 29 mL/min/1.73m2 Kidney Failure < 15 mL/min/1.73m2 *Relative to young adult level Estimated glomerular filtration rate is determined by the 2020 CKD-EPI equation recommended by the National Kidney Foundation (A Unifying Approach to GFR Estimation: Recommendations of the NKF-ASK Task Force on Reassessing the Inclusion of Race in Diagnosing Kidney Disease, JASN 2020). The CKD-EPI equation should not be used for patients with unstable renal function and has not been validated in children and those over 70. Current interpretive data was last reviewed 2020. Blood 05/24/2024 10:3 9 AM CDT 05/24/2024 10:44 AM CDT us Blayne Cano DO LAB BLOOD ORDERABLES Final Res ult [facility] [address] [facility] Department [place] [address] * Differential, auto (05/24/2024 10:39 AM CDT) [facility] Neutrophil abs 5.8 1.5 - 6.5 K/cumm Imm gran abs 0.0 0.0 - 0.1 K/cumm [facility] Lymphocyte abs 1.9 0.8 - 3.3 K/cumm [facility] Monocyte abs 0.4 0.2 - 0.8 K/cumm [facility] Eosinophil abs 0.1 0.0 - 0.5 K/cumm [facility] Basophil abs 0.0 0.0 - 0.1 K/cumm [facility] Neutrophil pct 70.8 % [facility] Comment: Interpretive Data Percent cell count reference ranges are not reported, since discordance with absolute values may lead to misinterpretation of CBC data. Current Interpretive Data was last revised on 2017. Imm gran pct 0.4 % [facility] Comment: Interpretive Data Percent cell count reference ranges are not reported, since discordance with absolute values may lead to misinterpretation of CBC data. Current Interpretive Data was last revised on 2017. Lymphocyte pct 23.4 % [facility] Comment: Interpretive Data Percent cell count reference ranges are not reported, since discordance with absolute values may lead to misinterpretation of CBC data. Current Interpretive Data was last revised on 2017. Monocyte pct 4.3 % [facility] Comment: Interpretive Data Percent cell count reference ranges are not reported, since discordance with absolute values may lead to misinterpretation of CBC data. Current Interpretive Data was last revised on 2017. Eosinophil pct 0.9 % [facility] Comment: Interpretive Data Percent cell count reference ranges are not reported, since discordance with absolute values may lead to misinterpretation of CBC data. Current Interpretive Data was last revised on 2017. Basophil pct 0.2 % [facility] Comment: Interpretive Data Percent cell count reference ranges are not reported, since discordance with absolute values may lead to misinterpretation of CBC data. Current Interpretive Data was last revised on 2017. Blood 05/24/2024 10:3 9 AM CDT 05/24/2024 10:44 AM CDT us Blayne Cano DO LAB BLOOD ORDERABLES Final Res ult [facility] [address] [facility] Department [place] [address] * Infection Prevention MRSA Only (Staphylococcus aureus) PCR Nasal (05/24/2024 10:39 AM CDT) PCR Scrn, Methicillin resistant Staphylococcus aureus (MRSA) Not Detected Not Detected Comment: Interpretive Data Testing performed using Nucleic Acid Amplification with the CepIsagen Xpert MRSA NxG Assay. This assay detects target DNA from mecA, mecC and the SCCmec insertion site of Staphylococcus aureus using Real-Time PCR and has been cleared by the FDA. Performance characteristics have been verified by the [facility]. Current Interpretive Data was last revised on 2022 Nasal 05/24/2024 10:3 9 AM CDT 05/24/2024 10:44 AM CDT Blayne Coineyvandana LAB MICROBIOLOGY - GENERAL ORD ERABLES Final Result Performing Organization Address City/[facility]/ZIP Co de Phone Number [facility] [address] [address] * CBC with auto differential (05/24/2024 10:39 AM CDT) WBC 8.2 3.8 - 9.9 K/cumm Hgb 12.2 11.9 - 15.5 g/dL [facility] Hct 37.0 35.6 - 45.5 % [facility] Plt 201 150 - 400 K/cumm [facility] MPV 10.9 9.1 - 12.3 fL [facility] RBC 4.34 3.90 - 5.20 M/cumm [facility] MCV 85.3 81.3 - 96.4 fL [facility] MCH 28.1 27.1 - 33.3 pg [facility] MCHC 33.0 32.3 - 35.7 g/dL [facility] RDW CV 13.1 11.1 - 14.9 % [facility] RDW SD 40.8 35.7 - 48.1 fL [facility] NRBC abs 0.00 0.00 - 0.01 K/cumm [facility] Blood 05/24/2024 10:3 9 AM CDT 05/24/2024 10:44 AM CDT Blayne [employer] LAB BLOOD ORDERABLES Final Res ult Performing Organization Address City/[facility]/ZIP Co de Phone Number [facility] [address] [address] * ABO/Rh (05/24/2024 10:39 AM CDT) ABO/Rh O Positive Blood 05/24/2024 10:3 9 AM CDT 05/24/2024 10:44 AM CDT Narrative [facility] - 05/24/2024 11:22 AM CDT Is this test being ordered in advance for a procedure?->Yes Expected date of procedure:->06/09/24 Has the patient been transfused in the past 3 months?->No Has the patient been in the past 3 months?->No Blayne [employer] LAB BLOOD BANK TEST ORDERABLES Final Result Performing Organization Address [facility] de Phone Number [address] [place] [address] * Antibody screen (05/24/2024 10:39 AM CDT) Juanis, indirect, Gel Interpretation Negative ABSC Blood 05/24/2024 10:3 9 AM CDT 05/24/2024 10:44 AM CDT Narrative [facility] - 05/24/2024 11:22 AM CDT Is this test being ordered in advance for a procedure?->Yes Expected date of procedure:->06/09/24 Has the patient been transfused in the past 3 months?->No Has the patient been in the past 3 months?->No [facility] BLOOD BANK TEST ORDERABLES Final Result Performing Organization Address [facility] de Phone Number [address] [place] [address] * Hemoglobin A1c (05/24/2024 10:39 AM CDT) Hgb A1C 5.2 4.0 - 5.6 % Estimated Average Glucose 103 mg/dL [facility] Comment: The ADA recommends reporting an estimated Average Glucose (eAG) with all Hemoglobin A1c results using the equation derived from a study of 507 normal and diabetic adults. Minority populations were underrepresented and children were not included. (Diabetes Care 31:4608-4681, 2008). The eAG is not equivalent to a fasting glucose. Blood 05/24/2024 10:3 9 AM CDT 05/24/2024 10:44 AM CDT us Blayne Cano DO LAB BLOOD ORDERABLES Final Res ult [facility] [address] [facility] Department [place] [address] * (ABNORMAL) Comprehensive metabolic panel (05/24/2024 10:39 AM CDT) Pathologist [facility] Sodium 139 135 - 145 mmol/L Potassium, pl 3.0(L) 3.3 - 4.9 mmol/L [facility] Chloride 100 97 - 110 mmol/L [facility] CO2 31 22 - 32 mmol/L [facility] Anion gap 8 2 - 15 mmol/L [facility] BUN 6 6 - 25 mg/dL [facility] Creatinine 0.58(L) 0.60 - 1.10 mg/dL [facility] Glucose 119 70 - 199 mg/dL [facility] Comment: Interpretive Data Fasting glucose >/= 126 mg/dl is diagnostic for diabetes. Fasting is defined as no caloric intake for at least 8 hours. Fasting glucose between 100 mg/dl to 125 mg/dl is diagnostic of prediabetes. In a patient with classic symptoms of hyperglycemia or hyperglycemic crisis, a random glucose >/= 200 mg/dl is diagnostic for diabetes. In the absence of unequivocal hyperglycemia, results should be confirmed by repeat testing. The classification and Diagnosis of Diabetes Diabetes Care 2021; 46: S19-S40. Current interpretive data was last revised 2022. Calcium 9.0 8.5 - 10.3 mg/dL [facility] Bilirubin, total 0.5 0.1 - 1.2 mg/dL [facility] Protein, pl 7.2 6.5 - 8.5 g/dL [facility] Albumin 3.9 3.5 - 5.0 g/dL [facility] Alk phos 84 40 - 130 Units/L [facility] ALT 9 7 - 45 Units/L [facility] AST 16 10 - 45 Units/L [facility] Blood 05/24/2024 10:3 9 AM CDT 05/24/2024 10:44 AM CDT Blayne Jerome DO LAB BLOOD ORDERABLES Final Res ult Performing Organization Address [facility]/ZIP Co de Phone Number [facility] [address] [facility] Department [place] [address] * ECG 12 lead (05/24/2024 10:31 AM CDT) Ventricular Rate EKG/Min 87 BPM [facility] Atrial Rate 87 BPM [facility] [place]-Interval (MSEC) 188 ms [facility] QRS-Interval (MSEC) 86 ms [facility] QT-Interval (MSEC) 380 ms [facility] QTc 457 ms [facility] P [place] 35 degrees [facility] R [place] -1 degrees [facility] T [place] 39 degrees [facility] Diagnosis Normal sinus rhythm Cannot rule out Inferior infarct (cited on or before 19-FEB-2023) Abnormal ECG When compared with ECG of 19-FEB-2023 12:01, No significant change was found Confirmed by MARIZOL GALINDO M.D. ([id number]) on 05/25/2024 7:46:44 AM [facility] 05/24/2024 10:3 1 AM CDT 05/25/2024 7:46 AM CDT Carline Zavala PREPRESS OPERATOR ECG ORDERABLES Jessy l Result Performing Organization Address [facility] Co de Phone Number [facility] * XR Hip Left 2 or 3 Views W Pelvis (04/06/2024 10:03 AM BARBER INSTRUCTOR) Anatomical Region Laterality Modality Lower Extremities, Hip, Pelvis Left C omputed Radiography 04/06/2024 10:0 6 AM BARBER INSTRUCTOR Impressions 04/06/2024 10:06 AM BARBER INSTRUCTOR 1. Unchanged, moderate left hip osteoarthritis. Electronically signed by: Bishop Downs M.D. Narrative 04/06/2024 10:06 AM BARBER INSTRUCTOR EXAMINATION: XR HIP LEFT 2 OR 3 VIEWS W PELVIS HISTORY: Left hip osteoarthritis FINDINGS: 3 view examination of the left hip is compared with a study dated 12/27/2023. There is unchanged, moderate left and mild right hip osteoarthritis. There is heterotopic ossification in the iliolumbar ligaments and a small amount of heterotopic ossification in the gluteal soft tissues bilaterally. No fracture or dislocation is present. Procedure Note Bishop Downs MD - 04/06/2024 EXAMINATION: XR HIP LEFT 2 OR 3 VIEWS W PELVIS HISTORY: Left hip osteoarthritis FINDINGS: 3 view examination of the left hip is compared with a study dated 12/27/2023. There is unchanged, moderate left and mild right hip osteoarthritis. There is heterotopic ossification in the iliolumbar ligaments and a small amount of heterotopic ossification in the gluteal soft tissues bilaterally. No fracture or dislocation is present. IMPRESSION: 1. Unchanged, moderate left hip osteoarthritis. Electronically signed by: Bishop Downs M.D. Enid Wolfe MD IMG XR PROCEDURES Fin al Result * (ABNORMAL) Screening Mammogram Bilateral W Lenin (10/18/2023 9:14 AM CDT) Anatomical Region Laterality Modality Breast Bilateral Mammography Impressions 10/18/2023 9:50 AM CDT BI-RADS ATLAS category (overall): 0 - Incomplete: Needs Additional Imaging Evaluation There is an area of suspected architectural distortion in the central upper right breast at middle depth. Further evaluation with right unilateral diagnostic mammogram and possible sonogram is recommended. No suspicious findings are identified in the left breast on mammogram. The patient has been or will be contacted. Narrative 10/18/2023 9:50 AM CDT Screening Mammogram Bilateral W Lenin: 10/18/23 The study was acquired using full field digital technology and interpreted from soft copy. 2D digital mammographic views, as well as 3D digital tomosynthesis were performed in the CC and MLO projections. CLINICAL: Screening mammogram, encounter for. No relevant medical history has been documented for this patient. History of breast cancer in Mother's Sister, Mother's Sister. COMPARISONS: 10/08/2022 Diagnostic Mammogram Right W Lenin BREAST TISSUE: There are scattered areas of fibroglandular density. FINDINGS: There is an area of suspected architectural distortion in the central upper right breast at middle depth. No suspicious findings are identified in the left breast on mammogram. Self Screening Mammogram IMG MAMMO PROCEDURES Fi nal Result * (ABNORMAL) Albumin Creatinine Ratio, Urine (08/17/2020 11:15 AM CDT) Creatinine, ur 278(H) 20 - 275 mg/dL [facility] Microalbumin, ur 1.6 See Note: mg/dL [facility] Comment: Reference Range: Reference Range Not established Microalbumin/creat ratio 6 <30 mcg/mg creat [facility] Comment: The ADA defines abnormalities in albumin excretion as follows: Category Result (mcg/mg creatinine) Normal <30 Microalbuminuria 30-299 Clinical albuminuria > OR = 300 The ADA recommends that at least two of three specimens collected within a 3-6 month period be abnormal before considering a patient to be within a diagnostic category. Urine 08/17/2020 11:1 5 AM CDT 08/17/2020 11:17 AM CDT Result [facility] Xavier Collins MD LAB URINE ORDERABLES Final Resul t [facility] [address] [place] [address] * (ABNORMAL) Lipid panel (09/26/2019 9:10 PM CDT) SCRIBED Cholesterol, Total 155 100 - 199 [facility] SCRIBED HDL 48(A) n/a - 39 [facility] SCRIBED LDL 84 0 - 99 [facility] SCRIBED Triglycerides 116 0 - 149 [facility] Blood specimen (specimen) Result [facility] Historical Michelle MEJIA LAB BLOOD ORDERABLES Edit ed Result - Final [facility] * HM PAP SMEAR WITH HPV (10/08/2017) Result [facility] Historical Provider HEALTH MAINTENANCE Final Result from Last 3 Months or Most Recently Relevant to Health Maintenance Insurance [facility] Advance Directives For more information, please contact: [phone] * Full Code (Latest Code Status on File) Date Activated Date Inactivated Comments 06/09/2024 11:20 AM 06/10/2024 6:13 PM * Full Code Date Activated Date Inactivated Comments 06/09/2024 11:13 AM 06/09/2024 11:20 AM Care Teams Machine Setter Supervisor Relationship Specialty Start Date End Date Christo Haas MD [address] [place] [id number] PCP - General Family Medicine 05/02/24 Stephanie Dangelo PA [address] [address] Orthopedic Surgery 06/09/24
--- OUTSIDE RECORDS SUMMARY | 2024-06-22 13:40 | XMS_ITS | CONTINUITY OF CARE DOCUMENT ---
Author Name reinaldo najera Address Unknown Organization [facility] Address [address] [address] [facility] [address] [place] [address] Phone [phone] Care Team Providers Care Director Of Retail Analytics Name Role Phone reinaldo najera Unavailable Unavailable INSURANCE PROVIDERS Payer name Policy type / Coverage type [place] red democrat ID [facility] [employer] insurance [employer] [id number]
[2024-06-22 13:41] LABS: Alanine Aminotransferase 13 U/L (6-35); Albumin Level 4.1 g/dL (3.5-5.1); Alkaline Phosphatase 100 U/L (38-126); Anion Gap 9 mmol/L (4-12); Aspartate Amino Transferase 17 U/L (14-36); Bilirubin,Total 0.7 mg/dL (0.2-1.3); Blood Urea Nitrogen 8 mg/dL (7-17); Calcium 9.1 mg/dL (8.4-10.2); Carbon Dioxide 28 mmol/L (22-30); Chloride 100 mmol/L (98-107); Estimated CRCL calculation 112 ml/min; Estimated Glomerular Filt Rate > 60; Glucose 110 mg/dL (65-110); Potassium 3.8 mmol/L (3.4-5.0); Sodium 137 mmol/L (137-145)
--- OUTSIDE RECORDS SUMMARY | 2024-06-22 13:41 | XMS_ITS | Encounter Summary ---
Author Organization [facility] Address [address] [place] [address] Care Team Providers Care Animal Cruelty Investigator Name Role Phone Christo Haas MD Primary Care Provider [phone] Stephanie Dangelo Unavailable [phone] Reason for Referral * Diagnostic Imaging (Routine) - Closed Specialty Diagnoses / Procedures Referred By Contac t Referred To Contact Diagnoses S/P total left hip arthroplasty Procedures XR Hip Left W Pelvis 2 or 3 Views Stephanie Dangelo PA [facility] [facility] [address] [place] [place] [address] Phone: tel: fax: [address] [phone] Referral ID Status Reason Start Date Expiration Date Visits Re quested Visits Authorized [id number] Closed 06/19/2024 07/19/2025 1 1 Reason for Visit * Diagnostic Imaging (Routine) - Closed Specialty Diagnoses / Procedures Referred By Contac t Referred To Contact Diagnoses S/P total left hip arthroplasty Procedures XR Hip Left W Pelvis 2 or 3 Views Stephanie Dangelo PA [facility] [address] [address] Phone: tel: fax:[phone] [facility] [address] [place] [address] Referral ID Status Reason Start Date Expiration Date Visits Re quested Visits Authorized [id number] Closed 06/19/2024 07/19/2025 1 1 Encounter Details Date Type Department Care Team (Latest Contact Info) Description 06/22/2024 8:19 AM CDT Hospital Encounter [facility] [address] [place] [address] S/P total left hip arthroplasty Social History Tobacco Use Types Packs/Day Years Used Date Smoking Tobacco: Former Cigarettes 0.3 12 0 03/21/1996 - 03/21/2008 Passive Smoke Exposure: Past Smokeless Tobacco: Never Passive Exposure Comments:fa ther Alcohol Use Standard Drinks/Week Comments Yes 0 (1 standard drink = 0.6 oz pur e alcohol) On rare occasion [facility] Utilities Answer Date Recorded In the past 12 months has e [employer], gas, oil, or water company threatened to [...] 06/09/2024 How often do you attend chur or gnosticist services? 1 to 4 times per year 06/09/2024 Do you belong to any clubs o r organizations such as nondenominational groups, unions, fraternal or athletic groups, or [...] any time in the past 12 m [facility], were you homeless or living in a [...] on file Legal Sex Female 2:05 AM STORE PROTECTION SPECIALIST Gender Identity Female 03/19/2020 11:04 AM STORE PROTECTION SPECIALIST Sexual Orientation Straight 03/19/2020 11 :04 AM STORE PROTECTION SPECIALIST documented as of this encounter Plan of Treatment Pending Results Name Type Priority Associated Diagnoses Date /Time XR Hip Left W Pelvis 2 or 3 Views Imaging Schedule Routine, Read Routine (OP Routine) S/P total left hip arthroplasty 06/22/2024 8:28 AM CDT Scheduled Orders Name Type Priority Associated Diagnoses Orde r Schedule XR Hip Left W Pelvis 2 or 3 Views Imaging Schedule Routine, Read Routine (OP Routine) S/P total left hip arthroplasty Once for 1 Occurrences starting 06/22/2024 until 06/22/2024 documented as of this encounter Goals Goal Patient Goal Type Associated Problems Recent Progress Patient-Stated? Author CCM Chronic Pain Care Plan Chronic Care Management No change(02/07 2:07 PM STORE PROTECTION SPECIALIST) No Jeanette Thurman, RN Note: Problem: Chronic Pain Goals: 1. Minimize further functional decline 2. Maximize quality of life 3. Control pain Strategies: - Activity/exercise program recommendation - Conservative stepwise pain medicine strategy with multi-disciplinary approach - Recommend healthy lifestyle strategies and compensatory methods as needed documented as of this encounter Visit Diagnoses Diagnosis S/P total left hip arthroplasty documented in this encounter Care Teams Animal Cruelty Investigator Relationship Specialty Start Date End Date Christo Haas MD [address] [place] [address] PCP - General Family Medicine 05/02/24 Stephanie Dangelo PA [address] [facility] [address] [address] Orthopedic Surgery 06/09/24 documented as of this encounter
--- OUTSIDE RECORDS SUMMARY | 2024-06-22 13:41 | XMS_ITS | Encounter Summary ---
Author Organization [facility] Address [address] [place] [address] Care Team Providers Care Bicycle Designer Name Role Phone Christo Haas MD Primary Care Provider [phone] Stephanie Dangelo Unavailable [phone] Reason for Referral * Diagnostic Imaging (Routine) - Closed Specialty Diagnoses / Procedures Referred By Contac t Referred To Contact Diagnoses S/P total left hip arthroplasty Procedures XR Hip Left W Pelvis 2 or 3 Views Stephanie [facility] [address] [place] [address] Phone: tel: fax: [address] [address] Referral ID Status Reason Start Date Expiration Date Visits Re quested Visits Authorized [id number] Closed 06/19/2024 07/19/2025 1 1 Reason for Visit * Reason Comments Post-op Encounter Details Date Type Department Care Team ([facility] Contact Info) Description 06/22/2024 9:00 AM CDT Office Visit [facility] Orthopedics and Sports Medicine [facility] [address] [address] Stephanie Dangelo PA [facility] [facility] [address] [place] [id number] S/P total left hip arthroplasty (Primary Dx); Spasm of muscle Social History Tobacco Use Types Packs/Day Years Used Date Smoking Tobacco: Former Cigarettes 0.3 12 0 03/21/1996 - 03/21/2008 Passive Smoke Exposure: Past Smokeless Tobacco: Never Passive Exposure Comments:fa ther Alcohol Use Standard Drinks/Week Comments Yes 0 (1 standard drink = 0.6 oz pur e alcohol) On rare occasion [facility] Utilities Answer Date Recorded In the past 12 months has th e electric, gas, oil, or water [employer] threatened to shut off services in your [...] week 06/09/2024 How often do you attend [facility] ch or baptism services? 1 to 4 times per year 06/09/2024 Do you belong to any clubs o r organizations such as methodist groups, unions, fraternal or athletic groups, or [...] any time in the past 12 m [facility], were you homeless or living in a fpc (including now)? No 06/09/2024 Personal Safety Answer Date Recorded Have you ever been in or are you currently in a harmful physical or emotional relationship or is someone making you feel afraid or unsafe? Denies 06/09/2024 Comments No Sex and Gender Information Value Date Recorded Sex Assigned at Not on file Legal Sex Female 2:05 AM BOOKY Gender Identity Female 03/19/2020 11:04 AM BOOKY Sexual Orientation Straight 03/19/2020 11 :04 AM BOOKY documented as of this encounter Last Filed Vital Signs Vital Sign Reading Time Taken Comments Blood Pressure - - Pulse - - Temperature - - Respiratory Rate - - Oxygen Saturation - - Inhaled Oxygen Concentration - - Weight 93.5 kg (206 lb 2.1 oz) 06/22/2024 8:36 A M CDT Height 170.2 cm (5' 7 ) 06/22/2024 8:36 AM CDT Body Mass Index 32.28 06/22/2024 8:36 AM CDT documented in this encounter Ordered Prescriptions Prescription Sig Dispense Quantity Refills Last Filled Start Date End Date methocarbamoL (ROBAXIN) 500 mg tabletIndications:S /P total left hip arthroplasty,Spasm of muscle Take 1 tablet (500 mg total) by mouth 4 (four) times a day 30 tablet 06/22/2024 oxyCODONE (ROXICODONE) 5 mg immediate release tabletIndications:P ain Take 1 tablet (5 mg total) by mouth every 4 (four) hours as needed for pain 30 tablet 06/22/2024 documented in this encounter Progress Notes * Stephanie Dangelo PA - 06/22/2024 9:00 AM CDT Images from the original note were not included. Subjective/Objective Patient ID: Cinthia Gerardo is a 44 y.o. female. Chief Complaint Chief Complaint Patient presents with Left Hip - Post-op Vitals Ht 170.2 cm (5' 7 ) Wt 93.5 kg (206 lb 2.1 oz) BMI 32.28 kg/m?? HPI Patient is presenting today for 2 week follow up of left total hip arthroplasty, anterior approach,performed by Dr. Cano on 06/09/2024. She is working with outpatient physical therapy. This is going well for her. She does report continued quad tightness and stiffness. She has been keeping the incision site clean and dry and has not noted any drainage from the incision site. Patient denies chest pain, shortness of breath, fever, chills. Review of Systems Constitutional: Negative for chills and fever. Respiratory: Negative for cough and shortness of breath. Gastrointestinal: Negative for nausea and vomiting. Genitourinary: Negative for difficulty urinating and dysuria. Musculoskeletal: Positive for arthralgias, joint swelling and myalgias. Neurological: Negative for weakness and numbness. All other systems reviewed and are negative. Examination: General Appearance: The patient is in no acute distress. Alert and oriented x3. Body mass index is 32.28 kg/m??. Respiratory: Respirations are even and unlabored. The patient does not use accessory muscles of respiration. Eyes: Pupils are equal and reactive. Psych: The patient is pleasant and cooperative and acts appropriately. Skin: The skin is grossly intact. There is no evidence for infection. Peripheral Pulses: There is no acute circulatory compromise to the extremities. Neurologic: The patient has no focal or lateralizing deficits. Musculoskeletal: Left Hip Exam Tenderness Left hip tenderness location: tender to palpation around the incision site. Other Erythema: absent Sensation: normal Pulse: present Comments: Surgical site is well approximated with subcutaneous sutures and glue. No drainage from the surgical site. No erythema or ecchymosis. No signs of infection. Imaging: X-ray imaging demonstrates left total hip arthroplasty hardware in good alignment and without apparent complication. Assessment/Plan Diagnoses and all orders for this visit: S/P total left hip arthroplasty (Primary) Assessment & Plan: Patient is doing well overall. X-rays were reviewed with the patient today in clinic and demonstrate hardware in good alignment without apparent complication. Patient's pain is under control, pain medication was refilled today. Muscle relaxer also refilled. Patient will continue outpatient physicaltherapy. No evidence of infection of the surgical [...] will follow up in 4 weeks for x-rays and further evaluation with Dr. Cano. She expressed understanding and agreement with the plan. Orders: - XR Hip Left W Pelvis 2 or 3 Views; Future - oxyCODONE (ROXICODONE) 5 mg immediate release tablet; Take 1 tablet (5 mg total) by mouth every 4(four) hours as needed for pain - methocarbamoL (ROBAXIN) 500 mg tablet; Take 1 tablet (500 mg total) by mouth 4 (four) times a day Spasm of muscle - methocarbamoL (ROBAXIN) 500 mg tablet; Take 1 tablet (500 mg total) by mouth 4 (four) times a day Return in about 4 weeks (around 07/20/2024). COLLINS Vaughan documented in this encounter Miscellaneous Notes * Assessment & Plan Note - Stephanie Dangelo PA - 06/22/2024 8:31 AM CDT Associated Problem(s): S/P total left hip arthroplasty Patient is doing well overall. X-rays were reviewed with the patient today in clinic and demonstrate hardware in good alignment without apparent complication. Patient's pain is under control, pain medication was refilled today. Muscle relaxer also refilled. Patient will continue outpatient physicaltherapy. No evidence of infection of the surgical [...] will follow up in 4 weeks for x-rays and further evaluation with Dr. Cano. She expressed understanding and agreement with the plan. documented in this encounter Plan of Treatment Pending Results [...] (OP Routine) S/P total left hip arthroplasty Expected: 06/19/2024, Expires: 06/19/2025 documented as of this encounter Goals Goal Patient Goal Type Associated Problems Recent Progress Patient-Stated? Author CCM Chronic Pain Care Plan Chronic Care Management No change(02/07 2:07 PM BOOKY) No Jeanette Thurman, ALESSANDRA Note: Problem: Chronic Pain Goals: 1. Minimize further functional decline 2. Maximize quality of life 3. Control pain Strategies: - Activity/exercise program recommendation - Conservative stepwise pain medicine strategy with multi-disciplinary approach - Recommend healthy lifestyle strategies and compensatory methods as needed documented as of this encounter Visit Diagnoses Diagnosis S/P total left hip arthroplasty- Primary Spasm of muscle documented in this encounter Discontinued Medications Medication Sig Discontinue Reason Start Date End Da te oxyCODONE (ROXICODONE) 5 mg immediate release tabletIndications:Pain Take 1 tablet (5 mg total) by mouth every 4 (four) hours as needed for pain Reorder 06/09/2024 06/22/2024 documented as of this encounter Care Teams Bicycle Designer Relationship Specialty Start Date End Date Christo Haas MD [address] [place] [address] PCP - General Family Medicine 05/02/24 Stephanie Dangelo PA [address] [address] Orthopedic Surgery 06/09/24 documented as of this encounter
--- OUTSIDE RECORDS SUMMARY | 2024-06-22 13:41 | XMS_ITS | Encounter Summary ---
Author Organization [facility] Care Team Providers Care Dairy Manager Name Role Phone Unknown, Notinfile Primary Care Provider Unavail able Sue Xavier Primary Care Provider Christo Haas MD Primary Care Provider [phone] Sue Xavier Primary Care Provider Christo Haas MD Primary Care Provider [phone] Sue Xavier Primary Care Provider Christo Haas MD Primary Care Provider [phone] Christo Haas MD Primary Care Provider [phone] Stephanie Dangelo Unavailable [phone] Encounter Details Date Type Department Care Team (Latest Contact Info) Description 01/11/2018 Orders Only [facility] ProviderDaryl MD [address] [place] [address] Social History Tobacco Use Types Packs/Day Years Used Date Smoking Tobacco: Never Assessed Alcohol Use Standard Drinks/Week Comments Yes 0 (1 standard drink = 0.6 oz pur e alcohol) Comments Unknown Sex and Gender Information Value Date Recorded Sex Assigned at Not on file Legal Sex Female 2:05 AM BOND RUNNER Gender Identity Female 03/19/2020 11:04 AM BOND RUNNER Sexual Orientation Straight 03/19/2020 11 :04 AM BOND RUNNER documented as of this encounter Plan of Treatment Not on file documented as of this encounter Procedures Procedure Name Priority Date/Time Associated Diagnosis Comments COLONOSCOPY - SCAN 01/11/2018 12 :00 AM BOND RUNNER documented in this encounter Results * COLONOSCOPY - SCAN (01/11/2018 12:00 AM BOND RUNNER) Narrative 01/11/2018 12:00 AM BOND RUNNER Ordered by an unspecified provider. us Historical Provider Final Res ult documented in this encounter Visit Diagnoses Not on filedocumented in this encounter Additional Health Concerns Infection Onset Date Last Indicated Resolved Time COVID: Suspected 03/03/2021 03/03/2021 03/04/2021 4:04 AM BOND RUNNER COVID19 03/03/2021 03/03/2021 03/17/2021 3:05 AM BOND RUNNER COVID: Recovered Comment:Added based on recent COVID infection. 03/17/2021 03/27/2021 07/15/2021 3:05 AM C DT COVID19 Comment:PT REPORTS COVID POSITIVE 12\7\23 SYMPTOM ONSET 12\5\23 02/04/2023 02/04/2023 02/14/2023 3:05 AM BOND RUNNER documented as of this encounter Care Teams Dairy Manager Relationship Specialty Start Date End Date Unknown, Notinfile PCP - General 10/08/17 02/27/19 Sue Xavier PA PCP - General 02/28/19 03/20/20 Christo Haas MD PCP - General Family Medicine 03/21/20 04/30/20 Sue Xavier PA PCP - General 05/01/20 05/01/20 Christo Haas MD PCP - General Family Medicine 05/02/20 11/30/21 Sue Xavier PA PCP - General Family Medicine 12/01/21 08/24/22 Christo Haas MD PCP - General Family Medicine 08/26/22 05/01/24 Christo Haas MD [address] [place] [address] PCP - General Family Medicine 05/02/24 Stephanie Dangelo PA [address] [address] Orthopedic Surgery 06/09/24 documented as of this encounter
--- OUTSIDE RECORDS SUMMARY | 2024-06-22 13:41 | XMS_ITS | Encounter Summary ---
Author Organization [facility] Address [address] [place] [address] Care Team Providers Care Finger Cobbler Name Role Phone Christo Haas MD Primary Care Provider [phone] Stephanie Dangelo PA Unavailable [phone] Reason for Visit * Physical Therapy (Routine) - Authorized Specialty Diagnoses / Procedures Referred By Contac t Referred To Contact Physical Therapy Diagnoses S/P total left hip arthroplasty Stephanie Dangelo PA [address] [place] [address] Phone: tel: fax: [facility] OP Physical Therapy [address] [place] [address] Phone: tel: fax: Referral ID Status Reason Start Date Expiration Date Visits Requested Visits Authorized [id number] Authorized Evaluate and Treat 06/09/2024 09/03/2024 12 12 Encounter Details Date Type Department Care Team (Late st Contact Info) Description 06/21/2024 1:30 PM CDT Therapy [facility] Physical Therapy [address] [place] [id number] Rosina Christensen PTA S/P total left hip arthroplasty (Primary Dx) Social History Tobacco Use Types Packs/Day Years Used Date Smoking Tobacco: Former Cigarettes 0.3 12 0 03/21/1996 - 03/21/2008 Passive Smoke Exposure: Past Smokeless Tobacco: Never Passive Exposure Comments:fa ther Alcohol Use Standard Drinks/Week Comments Yes 0 (1 standard drink = 0.6 oz pur e alcohol) On rare occasion [facility] Utilities Answer Date Recorded In the [...] often do you attend chur ch or caodaism services? 1 to 4 times per year 06/09/2024 Do you belong to any clubs o r organizations such as restoration groups, unions, fraternal or athletic groups, or [...] any time in the past 12 m [facility], were you homeless or living in a long-term (including now)? No 06/09/2024 Personal Safety Answer Date Recorded Have you ever been in or are you currently in a harmful physical or emotional relationship or is someone making you feel afraid or unsafe? Denies 06/09/2024 Comments No Sex and Gender Information Value Date Recorded Sex Assigned at Not on file Legal Sex Female 2:05 AM PLANT HEALTH CARE TECHNICIAN Gender Identity Female 03/19/2020 11:04 AM PLANT HEALTH CARE TECHNICIAN Sexual Orientation Straight 03/19/2020 11 :04 AM PLANT HEALTH CARE TECHNICIAN documented as of this encounter Progress Notes * Rosina Christensen, CUTTING TABLE OPERATOR FIRST - 06/21/2024 1:30 PM CDT Images from the original note were not included. Physical Therapy Visit/Daily Note 06/21/2024 Cinthia Gerardo 1980 ICD-10-CM 1. S/P total left hip arthroplasty Z96.642 STEPHANIE DANGELO Sign Language Instructor Services Utilized: NO Patient is identified by name and date of on this visit. Subjective: Pt reports she is having a lot of quad tightness and pain. Pt is reporting continued difficulty with bending over, stairs, prolonged walking and standing, prolonged sitting leads to stiffness. Pt reports that if she didn't have the quad tightness and pain that she would be able to do a lot more andwalk better. Pain today is 8/10.left quad Changes since last visit include quad tightness worse today Objective: Objective Measurement/Observation: Pt enters gym with WW, reduced tom, reduced step length on the L, forward flexed, elevated shoulders and WB through UE. Pt had increase of pain and tightness L quad. STM to L quad with noted fibrosis and sensitivity. Followed with IFC for pain control. Specific exercises and treatment interventions are outlined on exercise worksheet document. Treatment Performed on This Visit: Manual Therapy (body part and techniques): none Therapeutic Procedure/Exercise:stretching and strengthening to improve ROM and strength for functionality Modalities:none HEP given:established and compliant Patient education: Assessment: The patient demonstrated a good response to today's treatment as evidenced by these objective findings: tolerated today's session. The patient is making expected progress toward STG # 1 as evidenced by changes in efforts to impro. The patient continues to demonstrate deficits with pain and stiffness. Plan: Patient would benefit from the following modification on next visit: cont POC per PT. Recommend continued therapy to focus on strengthening of LLE and continued therapy to focus on improved mobility of LLE Rosina Christensen PTA [facility] ATTENTION PHYSICIAN If you are unable to electronically sign this document, please print this document and sign below to certify this plan of care/treatment plan. By signing this document, I certify that I have reviewedthis plan of care and support the treatment. Please fax back to . Thank you. Provider Signature: Date: * Rosina Christensen PTA - 06/21/2024 1:30 PM CDT ICD-10-CM 1. S/P total left hip arthroplasty Z96.642 STEPHANIE DANGELO PT Diagnosis/Impairment List: L hip weakness and pain post-op; L quad pain; step-to gait pattern w/short step length on R LE and poor L LE WB; poor stair tolerance and stability Precautions: no active L SLR (Dr. Cano protocol) Relevant Comorbidities: SI joint pain, chronic back pain, L talus fx Short-Term Goals: to be met by 07/15/24 Pt will improve B/L LE MMT grossly 4/5 to improve hip stability and reduce pain Pt will improve muscle power on B/L LEs by performing 30 second chair rise and scoring >=10 to improve hip stability and reduce pain Pt will be given HEP (met) Long-Term Goals: to be met by 07/27/2024 Pt will improve gait quality to step-through pattern w/ improved heel strike x 300 feet w/LRAD to reduce pain and return to PLOF Pt will report worst pain as 3/10 to improve ability to get up from chairs and get in her shower w/less assistance Pt will be given new HEP (revised) 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 Date Date Date Date Date 06/15/24 06/20/24 06/21/24 Visit Number 1 2 3 Additional HEP Issued Leg stretch gastrocsoleus 3x30 3x30 tibialis anterior 3x30 L hooklying leg fallout Leg strength TKE X10 5 sec hold SAQ/LAQ X10 5 sec hold Marches in standing X10 BI standing hip flex/abd/ext X10 ABD BI ankle press heel raises on stair step step ups X 10 L side step ups TB resisted hip IR/ER TB resisted hamstring curls Modality IFC IFC l Quad in supine with MHP Premod and Ice Syrian stim X10 mins to L quad avoiding surgical site w/MHP Manual STM and MFR X 15 mins to L quad STM L quad x 10 min Endurance Nustep Lv 3 5 min Lv 3 5 min Laps/gait training 1 Stair training Progress note/Recert Patient education documented in this encounter Plan of Treatment Not on file documented as of this encounter Goals Goal Patient Goal Type Associated Problems Recent Progress Patient-Stated? Author CCM Chronic Pain Care Plan Chronic Care Management No change(02/07 2:07 PM PLANT HEALTH CARE TECHNICIAN) Jeanette Alcaraz, RN Note: Problem: Chronic Pain Goals: 1. Minimize further functional decline 2. Maximize quality of life 3. Control pain Strategies: - Activity/exercise program recommendation - Conservative stepwise pain medicine strategy with multi-disciplinary approach - Recommend healthy lifestyle strategies and compensatory methods as needed documented as of this encounter Visit Diagnoses Diagnosis S/P total left hip arthroplasty- Primary documented in this encounter Care Teams Finger Cobbler Relationship Specialty Start Date End Date Christo Haas MD [address] [place] [address] PCP - General Family Medicine 05/02/24 Stephanie Dangelo PA [address] [address] Orthopedic Surgery 06/09/24 documented as of this encounter
--- OUTSIDE RECORDS SUMMARY | 2024-06-22 13:41 | XMS_ITS | Encounter Summary ---
Author Organization [facility] Facility Care Team Providers Care Supervisor Engraving Name Role Phone Christo Haas MD Primary Care Provider [phone] Unknown, Notinfile Primary Care Provider Unavail able Sue Xavier Primary Care Provider Christo Haas MD Primary Care Provider [phone] Sue Xavier Primary Care Provider Christo Haas MD Primary Care Provider [phone] Sue Xavier Primary Care Provider Christo Haas MD Primary Care Provider [phone] Christo Haas MD Primary Care Provider [phone] Stephanie Dangelo Unavailable [phone] Encounter Details Date Type Department Care Team (Latest Contact Info) Description 03/21/2017 Orders Only [facility] ProviderDaryl MD [address] [place] [address] Social History Tobacco Use Types Packs/Day Years Used Date Smoking Tobacco: Never Assessed Alcohol Use Standard Drinks/Week Comments Yes 0 (1 standard drink = 0.6 oz pur e alcohol) Comments Unknown Sex and Gender Information Value Date Recorded Sex Assigned at Not on file Legal Sex Female 2:05 AM AUTOMOTIVE ENGINEERING TEACHER Gender Identity Female 03/19/2020 11:04 AM AUTOMOTIVE ENGINEERING TEACHER Sexual Orientation Straight 03/19/2020 11 :04 AM AUTOMOTIVE ENGINEERING TEACHER documented as of this encounter Plan of Treatment Not on file documented as of this encounter Procedures Procedure Name Priority Date/Time Associated Diagnosis Comments SCAN - PATHOLOGY 03/22/2018 12:0 0 AM AUTOMOTIVE ENGINEERING TEACHER documented in this encounter Results * SCAN - PATHOLOGY (03/22/2018 12:00 AM AUTOMOTIVE ENGINEERING TEACHER) Narrative 03/22/2018 12:00 AM AUTOMOTIVE ENGINEERING TEACHER Ordered by an unspecified provider. us Historical Provider Final Res ult documented in this encounter Visit Diagnoses Not on filedocumented in this encounter Additional Health Concerns Infection Onset Date Last Indicated Resolved Time COVID: Suspected 03/03/2021 03/03/2021 03/04/2021 4:04 AM AUTOMOTIVE ENGINEERING TEACHER COVID19 03/03/2021 03/03/2021 03/17/2021 3:05 AM AUTOMOTIVE ENGINEERING TEACHER COVID: Recovered Comment:Added based on recent COVID infection. 03/17/2021 03/27/2021 07/15/2021 3:05 AM C DT COVID19 Comment:PT REPORTS COVID POSITIVE 12\7\23 SYMPTOM ONSET 12\5\23 02/04/2023 02/04/2023 02/14/2023 3:05 AM AUTOMOTIVE ENGINEERING TEACHER documented as of this encounter Care Teams Supervisor Engraving Relationship Specialty Start Date End Date Christo Haas MD PCP - General 05/29/16 10/07/17 Unknown, Notinfile PCP - General 10/08/17 02/27/19 [...] Family Medicine 08/26/22 05/01/24 Christo Haas MD [address] [place] [id number] PCP - General Family Medicine 05/02/24 Stephanie Dangelo PA [address] [address] Orthopedic Surgery 06/09/24 documented as of this encounter
--- OUTSIDE RECORDS SUMMARY | 2024-06-22 13:41 | XMS_ITS | Encounter Summary ---
Author Organization [facility] Facility Care Team Providers Care Health Services Information Specialist Name Role Phone Unknown, Notinfile Primary Care Provider Unavail able Sue Xavier Primary Care Provider Christo Haas MD Primary Care Provider [phone] Sue Xavier Primary Care Provider Christo Haas MD Primary Care Provider [phone] Sue Xavier Primary Care Provider Christo Haas MD Primary Care Provider [phone] Christo Haas MD Primary Care Provider [phone] Stephanie Dangelo Unavailable [phone] Encounter Details Date Type Department Care Team (Latest Contact Info) Description 03/18/2018 Orders Only [facility] Provider, MD Daryl [address] [place] [address] Social History Tobacco Use Types Packs/Day Years Used Date Smoking Tobacco: Never Assessed Alcohol Use Standard Drinks/Week Comments Yes 0 (1 standard drink = 0.6 oz pur e alcohol) Comments Unknown Sex and Gender Information Value Date Recorded Sex Assigned at Not on file Legal Sex Female 2:05 AM MARINE RESOURCE ECONOMIST Gender Identity Female 03/19/2020 11:04 AM MARINE RESOURCE ECONOMIST Sexual Orientation Straight 03/19/2020 11 :04 AM MARINE RESOURCE ECONOMIST documented as of this encounter Plan of Treatment Not on file documented as of this encounter Procedures Procedure Name Priority Date/Time Associated Diagnosis Comments SCAN - PATHOLOGY 03/18/2018 12:0 0 AM MARINE RESOURCE ECONOMIST documented in this encounter Results * SCAN - PATHOLOGY (03/18/2018 12:00 AM MARINE RESOURCE ECONOMIST) Narrative 03/18/2018 12:00 AM MARINE RESOURCE ECONOMIST Ordered by an unspecified provider. us Historical Provider Final Res ult documented in this encounter Visit Diagnoses Not on filedocumented in this encounter Additional Health Concerns Infection Onset Date Last Indicated Resolved Time COVID: Suspected 03/03/2021 03/03/2021 03/04/2021 4:04 AM MARINE RESOURCE ECONOMIST COVID19 03/03/2021 03/03/2021 03/17/2021 3:05 AM MARINE RESOURCE ECONOMIST COVID: Recovered Comment:Added based on recent COVID infection. 03/17/2021 03/27/2021 07/15/2021 3:05 AM C DT COVID19 Comment:PT REPORTS COVID POSITIVE 12\7\23 SYMPTOM ONSET 12\5\23 02/04/2023 02/04/2023 02/14/2023 3:05 AM MARINE RESOURCE ECONOMIST documented as of this encounter Care Teams Health Services Information Specialist Relationship Specialty Start Date End Date Unknown, [...] Family Medicine 08/26/22 05/01/24 Christo Haas MD [address] [place] [id number] PCP - General Family Medicine 05/02/24 Stephanie Dangelo PA [address] [address] Orthopedic Surgery 06/09/24 documented as of this encounter
--- OUTSIDE RECORDS SUMMARY | 2024-06-22 13:41 | XMS_ITS | Referral Summary ---
Author Organization [place] [id number] [facility] Address [address] [place] [address] Care Team Providers Care Inside Sales Administrator Name Role Phone Christo Haas MD Primary Care Provider [phone] Stephanie Dangelo PA Unavailable [phone] Encounters Date Type Department Care Team Description 06/22/2024 8:19 AM CDT Hospital Encounter [facility] Diag Imaging [address] [place] [id number] S/P total left hip arthroplasty 06/22/2024 9:00 AM CDT Office Visit [facility] Orthopedics and Sports Medicine [address] [place] [address] [place] [phone] Stephanie Dangelo PA S/P total left hip arthroplasty (Primary Dx); Spasm of muscle 06/21/2024 1:30 PM CDT Therapy [facility] OP Physical Therapy [address] [place] [address] Rosina Christensen PTA S/P total left hip arthroplasty (Primary Dx) 06/20/2024 8:30 AM CDT Therapy [facility] OP Physical Therapy [address] [place] [address] Schlich, Koltin, MERCHANDISE FLOW TEAM MEMBER S/P total left hip arthroplasty (Primary Dx) 06/15/2024 Plan of Care Documentation [facility] OP Physical Therapy [address] [place] [address] 06/15/2024 2:00 PM CDT Therapy [facility] OP Physical Therapy [address] [place] [address] Mildred Gonsales, PT S/P total left hip arthroplasty (Primary Dx) 06/09/2024 5:17 AM CDT - 06/10/2024 1:57 PM CDT Hospital Encounter [address] [address] Blayne Cano DO S/P total left hip arthroplasty (Primary Dx); Primary osteoarthritis of left hip Discharge Disposition: Discharge to home or self care 06/09/2024 7:30 AM CDT - 06/09/2024 10:20 AM CDT Surgery [facility] OR [address] [place] [address] Blayne Cano DO LEFT TOTAL HIP ARTHROPLASTY ANTERIOR 06/09/2024 7:32 AM CDT Anesthesia Event [facility] OR [address] [place] [address] Ishan Ferreira MD Taylor-White, Carlotta A., NP 06/08/2024 1:45 PM CDT - 06/08/2024 11:59 PM CDT Hospital Encounter [facility] Medical Office Bl [address] [place] [address] Other abnormal and inconclusive findings on diagnostic imaging of breast Discharge Disposition: Discharge to home or self care 05/25/2024 Telephone [facility] PreAdmission Testing [address] [place] [address] Monica Alcantar RN 05/25/2024 11:00 AM CDT Office Visit [facility] Medical Group Neurology [address] [place] [address] [address] [place] [phone] Arlen Brown NP Migraine without aura and without status migrainosus, not intractable (Primary Dx) 05/24/2024 10:30 AM CDT Pre-Admission Testing [facility] Pre[facility]mission Testing [address] [place] [address] Preop examination (Primary Dx); Primary osteoarthritis of left hip; Preop testing; Elevated hemoglobin A1c 05/24/2024 9:00 AM CDT Office Visit [facility] Medicine [address] [place] [address] [address] [place] [address] Blayne Cano, Primary osteoarthritis of left hip (Primary Dx) 05/23/2024 Plan of Care Documentation [facility] Occup Therapy [address] [place] [address] 05/23/2024 Documentation [facility] [address] [address] Makenzie Phelps RN 05/23/2024 12:00 PM CDT Therapy [facility] Occup Therapy [address] [place] [address] [address] [place] [address] Negrita Borrego, OT Primary osteoarthritis of left hip (Primary Dx) 05/02/2024 Orders Only [facility] [address] [place] [address] [address] [place] [address] Blayne Cano, Primary osteoarthritis of left hip (Primary Dx) 05/01/2024 8:30 AM COTTON FARMWORKER Office Visit [facility] Medicine [address] [place] [address] [address] [place] [address] Blayne Cano DO Primary osteoarthritis of left hip (Primary Dx); Femoral acetabular impingement 04/12/2024 9:00 AM COTTON FARMWORKER Office Visit [facility] [address] [place] [address] [address] [place] [phone] Adrian Rios PA Primary osteoarthritis of left hip (Primary Dx); Chronic SI joint pain 04/06/2024 9:47 AM COTTON FARMWORKER - 04/06/2024 11:59 PM COTTON FARMWORKER Hospital Encounter [facility] [address] [facility] [address] DAYNE Shaikh [phone] Left hip pain Discharge Disposition: Discharge to home or self care 04/06/2024 10:30 AM COTTON FARMWORKER Office Visit [facility] Orthopaedic Surgery [address] [facility] Medical Office Building [address] [place] [phone] Enid Snell MD Left hip pain (Primary Dx) 03/29/2024 11:00 AM COTTON FARMWORKER Therapy [facility] OP Physical Therapy [facility] [address] [address] Michelle Underwood, PT Left low back pain, unspecified chronicity, unspecified whether sciatica present (Primary Dx) from Last 3 Months Allergies Active Allergy Reactions Criticality Noted Date [...] both eyes 3 (three) times a day 019 Active OneTouch Verio Flex meter misc USE DIRECTED ONCE DAILY 020 Active pen needle, diabetic 29 gauge x 1/2 needle Use to inject 1-4 times daily as directed 021 Active OneTouch Verio test strips stripIndications: Type 2 diabetes mellitus with hyperglycemia, with long-term current use of insulin (HCC) USE TO CHECK GLUCOSE ONCE DAILY 100 strip 6 022 Active OneTouch Delica Plus Lancet 33 gauge miscIndications:T ype 2 diabetes mellitus with hyperglycemia, with long-term current use of insulin (HCC) USE TO CHECK GLUCOSE ONCE DAILY 100 [...] every 30 (thirty) days 1 mL 11 2024 Active ubrogepant (Ubrelvy) 100 mg tablet Take 1 tablet (100 mg total) by mouth once as needed for migraine May repeat dose once in 2 hours if no relief. Do not exceed 2 doses in 24 hours. 10 tablet 11 024 2024 Active SUMAtriptan (Imitrex STATdose Pen) 6 [...] (four) times a day 200 g [address] (VOLTAREN) 75 mg [...] mg total) by mouth daily as needed 2024 Discontinued(S top Taking at Discharge) DULoxetine [...] a day for 7 days 14 tablet 2024 Discontinued(T herapy completed) oxyCODONE (ROXICODONE) 5 mg immediate release tabletIndications :Pain Take 1 tablet (5 mg total) by mouth every 4 (four) hours as needed for pain 30 tablet 2024 Discontinued(R eorder) methocarbamoL (ROBAXIN) 500 mg [...] weekly Assessment & Plan (03/27/2021 3:33 PM COTTON FARMWORKER): Will check 25 hydroxy vitamin-D level Start [...] current Assessment & Plan (03/27/2021 3:32 PM COTTON FARMWORKER): Hba1c was Lab Results Component Value Date [...] acquired 11/26/2015 Atherosclerotic heart diseas e of [place] coronary artery without angina pectoris 10/22/2015 Essential [...] cm water pressure. Denied need for supplies [facility] patient Assessment & Plan (04/09/2023 11:19 AM COTTON FARMWORKER): The patient has obstructive sleep apnea and [...] 05/21/2020 Assessment & Plan (03/05/2020 5:52 PM COTTON FARMWORKER): Hba1c was Lab Results Component Value Date [...] 03/27/2021 Polycystic ovarian disease 07/13/2015 0 05/21/2020 Immunizations Immunization Administration Dates Next Due DTaP 11/13/1983, 2,1978,09/15,1978 H1N1 All Forms 02/07/2009 H1N1 Inj 02/07/2009 Hep B Vaccine 11/06/1997,03/16/1997,01/10/1997 Influenza, Quadrivalent, Spl it, Intramuscular 12/31/2015 Influenza, Quadrivalent, Spl it, Preservative Free, Intramuscular 01/04/2017 Influenza, Trivalent, IM (MDV) 3,11/12/2011,01/05/2011,11/29,01/05/2008,11/18/2006 MMR 08/05/1992,09/14/1979 PPD TEST 12/17/2008, 9,01/04/2008,11/15 Pneumococcal Conjugate, Unspecified 12/21/2007,0 04/08/2006 Td, adsorbed 09/20/2002,08/05/1992 Tdap 09/13/2018,11/03/2010 Social History Tobacco Use Types Packs/Day Years [...] the past 12 months has th e [employer], gas, oil, or water [employer] threatened to shut off services in your [...] week 06/09/2024 How often do you attend [facility] or adventist services? 1 to 4 times per year 06/09/2024 Do you belong to any clubs o r organizations such as adventism groups, unions, fraternal or athletic groups, or [...] any time in the past 12 m [facility], were you homeless or living in a mcc (including now)? No 06/09/2024 Personal Safety Answer Date Recorded Have you ever been in or are you currently in a harmful physical or emotional relationship or is someone making you feel afraid or unsafe? Denies 06/09/2024 Comments No Sex and Gender Information Value Date Recorded Sex Assigned at Not on file Legal Sex Female 2:05 AM COTTON FARMWORKER Gender Identity Female 03/19/2020 11:04 AM COTTON FARMWORKER Sexual Orientation Straight 03/19/2020 11 :04 AM COTTON FARMWORKER Last Filed Vital Signs Vital Sign [place] [...] 06/22/2024 8:36 AM CDT Plan of Treatment Not on file Goals Goal Patient Goal Type Associated Problems Recent Progress Patient-Stated? Author CCM Chronic Pain Care Plan Chronic Care Management No change(02/07 2:07 PM COTTON FARMWORKER) No Jeanette Thurman, ALESSANDRA Note: Problem: Chronic Pain Goals: 1. Minimize further functional decline 2. Maximize quality of life 3. Control pain Strategies: - Activity/exercise program recommendation - Conservative stepwise pain medicine strategy with multi-disciplinary approach - Recommend healthy lifestyle strategies and compensatory methods as needed Medical Devices Implanted Type Area Web Marketing Manager Device Identifier Shelf Expiration Date Model / Serial / Lot ReadyDock Partnership Marker Biospy Site Mini Cork Shape [employer] Abhijittiana-Almaero - [id number] Implanted:Qty: 1 on 11/19/2023 by Colin Villalba MD at [facility] [place] Right: Breast Hologic Limited Partnership [id number] 07/07/2024 ABHIJITK-JUAN C O / / [id number] Tapatalkgic Limited Partnership Marker Tissue Deployment Device [id number] [employer] [id number] - [id number] Implanted:Qty: 1 on 11/19/2023 by Colin Villalba MD at [facility] [place] Axilla Hologic Limited Partnership [id number] 01/11/2028 [id number] / / [id number] Pins Left: Ankle [place] Right: Heel [employer] [place] 54mm Sector Hip Shell Acetabular Gription Sterile Latex Free [id number] - [id number] Implanted:Qty: 1 on 06/09/2024 by Blayne Cano DO at [facility] Left: Hip [employer] [id number] 02/28/2034 [id number] / / [id number] [employer] [place] 54mm 36mm Hip Neutral Liner Acetabular Altrx Sterile Latex Free [id number] - [id number] Implanted:Qty: 1 on 06/09/2024 by Blayne Cano DO at [facility] Left: Hip [employer] [id number] 02/28/2029 [id number] / / [id number] [employer] [place] 54mm Sector Hip Shell Acetabular Gription Sterile Latex Free [id number] - [id number] Implanted:Qty: 1 on 06/09/2024 by Blayne Cano DO at [facility] Left: Hip [employer] [id number] 02/28/2034 [id number] / / [id number] [employer] Actis Collared Hip 02/11 6 Standard Offset Stem Femoral [id number] - [id number] Implanted:Qty: 1 on 06/09/2024 by Blayne Cano DO at [facility] Left: Hip [employer] [id number] 03/31/2034 [id number] / / [id number] [employer] Articul/Elia 36mm Cementless Hip +8.5mm 02/11 Taper Head Femoral Latex Free 1365-36-330 - [id number] Implanted:Qty: 1 on 06/09/2024 by Blayne Cano DO at [facility] Left: Hip [employer] [id number] 02/28/2029 1365-36-330 / / [id number] Procedures Procedure Name Priority Date/Time Associated Diagnosis [...] HOUR IP Routine 06/09/2024 9:35 AM CDT IA AN PROCEDURE PLACEHOLDER Routine 06/09/2024 7:58 AM CDT IA AN ELECTIVE ENDOTRACHEAL AIRWAY Routine 06/09/2024 7:58 [...] Read Routine (OP Routine) 04/06/2024 10:03 AM COTTON FARMWORKER Left hip pain SCREENING MAMMOGRAM BILATERAL W [...] mg/dL Glucose comment 1 RN/MD Notified [facility] Blood 06/10/2024 7:58 AM CDT 06/10/2024 7:58 AM CDT us Blayne Cano DO LAB POCT ORDERABLES - DEVICE F inal Result [facility] [address] [facility] Department [place] [address] * eGFR (06/10/2024 2:46 AM CDT) eGFR [...] Stephanie GUADALUPE LAB BLOOD ORDERABLES Final Result [facility] [address] [facility] Department [place] [address] * (ABNORMAL) Differential, auto (06/10/2024 2:46 AM CDT) Neutrophil abs 9.33(H) 1.50 - 6.50 K/cumm Imm gran abs 0.06 0.00 - 0.10 K/cumm [facility] Lymphocyte abs 1.44 0.80 - 3.30 K/cumm [facility] Monocyte abs 0.78 0.20 - 0.80 K/cumm [facility] Eosinophil abs 0.00 0.00 - 0.50 K/cumm [facility] Basophil abs 0.02 0.00 - 0.10 K/cumm [facility] Neutrophil pct 80.2 % [facility] Comment: Interpretive Data Percent cell count reference ranges are not reported, since discordance with absolute values may lead to misinterpretation of CBC data. Current Interpretive Data was last revised on 2017. Imm gran pct 0.5 % [facility] Comment: Interpretive Data Percent cell count reference ranges are not reported, since discordance with absolute values may lead to misinterpretation of CBC data. Current Interpretive Data was last revised on 2017. Lymphocyte pct 12.4 % [facility] Comment: Interpretive Data Percent cell count reference ranges are not reported, since discordance with absolute values may lead to misinterpretation of CBC data. Current Interpretive Data was last revised on 2017. Monocyte pct 6.7 % [facility] Comment: Interpretive Data Percent cell count reference ranges are not reported, since discordance with absolute values may lead to misinterpretation of CBC data. Current Interpretive Data was last revised on 2017. Eosinophil pct 0.0 % [facility] Comment: Interpretive Data Percent cell count reference ranges are not reported, since discordance with absolute values may lead to misinterpretation of CBC data. Current Interpretive Data was last revised on 2017. Basophil pct 0.2 % [facility] Comment: Interpretive Data Percent cell count reference ranges are not reported, since discordance with absolute values may lead to misinterpretation of CBC data. Current Interpretive Data was last revised on 2017. Blood 06/10/2024 2:46 AM CDT 06/10/2024 2:56 AM CDT Nancy GUADALUPE LAB BLOOD ORDERABLES Final Re sult Performing Organization Address [facility] Co de Phone Number [address] [place] [address] * (ABNORMAL) CBC with auto differential (06/10/2024 2:46 AM CDT) Pathologist [facility] WBC 11.63(H) 3.80 - 9.90 K/cumm Hgb 9.7(L) 11.9 - 15.5 g/dL [facility] Hct 29.7(L) 35.6 - 45.5 % [facility] Plt 186 150 - 400 K/cumm [facility] MPV 10.9 9.1 - 12.3 fL [facility] RBC 3.49(L) 3.90 - 5.20 M/cumm [facility] MCV 85.1 81.3 - 96.4 fL [facility] MCH 27.8 27.1 - 33.3 pg [facility] MCHC 32.7 32.3 - 35.7 g/dL [facility] RDW CV 13.7 11.1 - 14.9 % [facility] RDW SD 41.9 35.7 - 48.1 fL [facility] NRBC abs 0.00 0.00 - 0.01 K/cumm [facility] Blood 06/10/2024 2:46 AM CDT 06/10/2024 2:56 AM CDT Nancy GUADALUPE LAB BLOOD ORDERABLES Final Re sult Performing Organization Address [facility]/ZIP Co de Phone Number [address] [place] [address] * (ABNORMAL) Basic metabolic panel (06/10/2024 2:46 AM CDT) Pathologist [facility] Sodium 138 135 - 145 mmol/L Potassium, pl 3.4 3.3 - 4.9 mmol/L [facility] Chloride 102 97 - 110 mmol/L [facility] CO2 29 22 - 32 mmol/L [facility] Anion gap 7 2 - 15 mmol/L [facility] BUN 7 6 - 25 mg/dL [facility] Creatinine 0.69 0.60 - 1.10 mg/dL [facility] Glucose 126 70 - 199 mg/dL [facility] Comment: Interpretive Data Fasting glucose >/= 126 [...] 2022. Calcium 8.3(L) 8.5 - 10.3 mg/dL [facility] Blood 06/10/2024 2:46 AM CDT 06/10/2024 2:56 AM CDT Stephanie GUADALUPE LAB BLOOD ORDERABLES Final Result Performing Organization Address City/[facility]/ZIP Co de Phone Number [address] [employer] [place] [place] [address] * POCT glucose (06/09/2024 8:42 PM CDT) [facility] Glucose, POC 198 70 - 199 mg/dL Glucose comment 1 Follow Protocol [facility] Blood 06/09/2024 8:42 PM CDT 06/09/2024 8:42 PM CDT Blayne Cano DO LAB POCT ORDERABLES - DEVICE F inal Result Performing Organization Address City/[facility]/ZIP Co de Phone Number [address] [employer] [place] [place] [address] * (ABNORMAL) POCT glucose (06/09/2024 4:22 PM CDT) Glucose, POC 206(H) 70 - 199 mg/dL Blood 06/09/2024 4:22 PM CDT 06/09/2024 4:22 PM CDT us Blayne Jerome DO LAB POCT ORDERABLES - DEVICE F inal Result [place] [address] [facility] Department [place] [address] * (ABNORMAL) Differential, auto (06/09/2024 1:01 PM CDT) [facility] Neutrophil abs 15.44(H) 1.50 - 6.50 K/cumm Imm gran abs 0.18(H) 0.00 - 0.10 K/cumm [facility] Lymphocyte abs 1.18 0.80 - 3.30 K/cumm [facility] Monocyte abs 0.30 0.20 - 0.80 K/cumm [facility] Eosinophil abs 0.00 0.00 - 0.50 K/cumm [facility] Basophil abs 0.03 0.00 - 0.10 K/cumm [facility] Neutrophil pct 90.0 % [facility] Comment: Interpretive Data Percent cell count reference ranges are not reported, since discordance with absolute values may lead to misinterpretation of CBC data. Current Interpretive Data was last revised on 2017. Imm gran pct 1.1 % [facility] Comment: Interpretive Data Percent cell count reference ranges are not reported, since discordance with absolute values may lead to misinterpretation of CBC data. Current Interpretive Data was last revised on 2017. Lymphocyte pct 6.9 % [facility] Comment: Interpretive Data Percent cell count reference ranges are not reported, since discordance with absolute values may lead to misinterpretation of CBC data. Current Interpretive Data was last revised on 2017. Monocyte pct 1.8 % [facility] Comment: Interpretive Data Percent cell count reference ranges are not reported, since discordance with absolute values may lead to misinterpretation of CBC data. Current Interpretive Data was last revised on 2017. Eosinophil pct 0.0 % [facility] Comment: Interpretive Data Percent cell count reference ranges are not reported, since discordance with absolute values may lead to misinterpretation of CBC data. Current Interpretive Data was last revised on 2017. Basophil pct 0.2 % [facility] Comment: Interpretive Data Percent cell count reference ranges are not reported, since discordance with absolute values may lead to misinterpretation of CBC data. Current Interpretive Data was last revised on 2017. Blood 06/09/2024 1:01 PM CDT 06/09/2024 1:10 PM CDT Nancy GUADALUPE LAB BLOOD ORDERABLES Final Re sult [facility] [address] [facility] Department [place] [address] * (ABNORMAL) CBC with auto differential (06/09/2024 1:01 PM CDT) WBC 17.13(H) 3.80 - 9.90 K/cumm Hgb 11.8(L) 11.9 - 15.5 g/dL [facility] Hct 35.0(L) 35.6 - 45.5 % [facility] Plt 244 150 - 400 K/cumm [facility] MPV 10.9 9.1 - 12.3 fL [facility] RBC 4.18 3.90 - 5.20 M/cumm [facility] MCV 83.7 81.3 - 96.4 fL [facility] MCH 28.2 27.1 - 33.3 pg [facility] MCHC 33.7 32.3 - 35.7 g/dL [facility] RDW CV 13.7 11.1 - 14.9 % [facility] RDW SD 42.0 35.7 - 48.1 fL [facility] NRBC abs 0.00 0.00 - 0.01 K/cumm [facility] Blood 06/09/2024 1:01 PM CDT 06/09/2024 1:10 PM CDT Nancy GUADALUPE LAB BLOOD ORDERABLES Final Re sult Performing Organization Address [facility] Co de Phone Number CHARLEY [address] [address] * eGFR (06/09/2024 11:33 AM CDT) eGFR [...] BLOOD ORDERABLES Final Result Performing Organization Address [facility] Co de Phone Number LEXIE[address] [place] [address] * Protime-INR (06/09/2024 11:33 AM CDT) Pathologist [facility] PT 13.2 12.0 - 14.6 sec INR 1.0 0.9 - 1.2 [facility] Comment: Ref Range High Interpretive data Oral anticoagulant therapeutic ranges: Venous thromboembolism prophylaxis or treatment: 2.0-3.0 CARDIOLOGY Standard range: 2.0-3.0 High-intensity range: 2.5-3.5 Refer to indication-specific guidelines for appropriate target ranges for prosthetic heart valve replacement. Current interpretive data was last revised on 2019. Blood 06/09/2024 11:3 3 AM CDT 06/09/2024 11:53 AM CDT Narrative LEXIEDUARTE - 06/09/2024 12:04 PM CDT Baseline prior to apixaban initiation. Stephanie GUADALUPE LAB BLOOD ORDERABLES Final Result Performing Organization Address City/[facility]/ZIP Co de Phone Number [facility] [address] [employer] [place] [place] [address] * (ABNORMAL) CBC without differential (06/09/2024 11:33 AM CDT) WBC 11.60(H) 3.80 - 9.90 K/cumm Hgb 11.5(L) 11.9 - 15.5 g/dL [facility] Hct 35.0(L) 35.6 - 45.5 % [facility] Plt 228 150 - 400 K/cumm [facility] MPV 11.1 9.1 - 12.3 fL [facility] RBC 4.14 3.90 - 5.20 M/cumm [facility] MCV 84.5 81.3 - 96.4 fL [facility] MCH 27.8 27.1 - 33.3 pg [facility] MCHC 32.9 32.3 - 35.7 g/dL [facility] RDW CV 13.8 11.1 - 14.9 % [facility] RDW SD 42.2 35.7 - 48.1 fL [facility] NRBC abs 0.00 0.00 - 0.01 K/cumm [facility] Blood 06/09/2024 11:3 3 AM CDT 06/09/2024 11:53 AM CDT Narrative CHARLEY - 06/09/2024 11:58 AM CDT Baseline prior to apixaban initiation. Stephanie GUADALUPE LAB BLOOD ORDERABLES Final Result Performing Organization Address City/[facility]/ZIP Co de Phone Number CHARLEY [address] [employer] [place] [place] [address] * Creatinine (06/09/2024 11:33 AM CDT) Creatinine 0.63 0.60 - 1.10 mg/dL Blood 06/09/2024 11:3 3 AM CDT 06/09/2024 11:53 AM CDT Narrative [facility] - 06/09/2024 12:27 PM CDT Baseline prior to apixaban initiation. Stephanie GUADALUPE LAB BLOOD ORDERABLES Final Result [address] [place] [address] * Hepatic function panel (06/09/2024 11:33 AM CDT) Bilirubin, total 0.6 0.1 - 1.2 mg/dL Bilirubin, direct 0.3 0.1 - 0.3 mg/dL [facility] Protein, pl 6.8 6.5 - 8.5 g/dL [facility] Albumin 3.8 3.5 - 5.0 g/dL [facility] Alk phos 80 40 - 130 Units/L [facility] ALT 13 7 - 45 Units/L [facility] AST 23 10 - 45 Units/L [facility] Blood 06/09/2024 11:3 3 AM CDT 06/09/2024 11:53 AM CDT Narrative [facility] - 06/09/2024 12:27 PM CDT Baseline prior to apixaban initiation. Stephanie GUADALUPE LAB BLOOD ORDERABLES Final Result [address] [place] [address] * POCT glucose (06/09/2024 11:22 AM CDT) Glucose, POC 197 70 - 199 mg/dL Blood 06/09/2024 11:2 2 AM CDT 06/09/2024 11:22 AM CDT us Blayne Cano DO LAB POCT ORDERABLES - DEVICE F inal Result CHARLEY [address] [facility] Department [place] [address] * XR Hip Left 2 or 3 [...] by Carlitos Jean M.D. T: Report ID: [id number] Reading Location: [place] [address] Procedure Note Carlitos Jean MD - 06/09/2024 [...] by Carlitos Jean M.D. T: Report ID: [id number] Reading Location: [id number] us Stephanie GUADALUPE IMG XR PROCEDURES Final Re sult * POCT glucose (06/09/2024 10:24 AM CDT) Glucose, POC 185 70 - 199 mg/dL Glucose comment 1 Use This Result LEXIEDUARTE SEYMOUR Blood 06/09/2024 10:2 4 AM CDT 06/09/2024 10:24 AM CDT Blaynerosie Mckeonvandana DO LAB POCT ORDERABLES - DEVICE F inal Result Performing Organization Address [facility]/ZIP Co de Phone Number CHARLEY SEYMOUR [address] [facility] Department [place] [address] * FL Fluoroscopy < 1 Hour (06/09/2024 9:35 AM CDT) Narrative RAD_OLU_MARIA EUGENIA_MHE - 06/09/2024 9:37 AM CDT The images from this study are not interpreted by Radiology. Please refer to the physician's procedure / OR operative note. Blaynerosie Mckeonvandana DO IMG FLUOROSCOPY PROCEDURES Fin al Result Performing Organization Address [facility] Co de Phone Number RAD_[email or web address] * IA AN ELECTIVE ENDOTRACHEAL AIRWAY, IA AN PROCEDURE PLACEHOLDER (06/09/2024 7:58 AM CDT) Narrative Rossy Lambert CRNA - 06/09/2024 7:58 AM CDT Rossy Lambert CRNA 06/09/2024 7:58 AM Airway Patient location: OR Urgency: elective Date/time: 06/09/2024 7:36 AM Indications for airway management: anesthesia and airway protection Difficult airway: no Staff: Placed by: BOAT AND PLANT UTILITY SUPERVISOR: Rossy Lambert CRNA Emergent airway documentation: Risks [...] cali POC 41 40 - 50 mmHg [facility] pO2,cali POC 49 mmHg [facility] Comment: Interpretive Data No reference range established. Current interpretive data was last revised 2019. HCO3, cali (Calc) POC 27 20 - 30 mmol/L [facility] Base excess, cali POC 2 mmol/L [facility] Comment: Interpretive Data No reference range established. Current interpretive data was last revised 2019. Hemoglobin, cali POC 12.9 11.9 - 15.5 g/dL [facility] Hematocrit, cali POC 38.0 35.6 - 45.5 % [facility] Sodium, cali POC 138 135 - 145 mmol/L [facility] Potassium, cali POC 3.6 3.3 - 4.9 mmol/L [facility] Comment: Interpretive Data This method is not able to assess for hemolysis, which may falsely increase potassium concentrations. If further testing is needed to evaluate this result, consider in-laboratory plasma potassium. Current Interpretive Data was last revised on 2021. Glucose, cali POC 140 70 - 199 mg/dL [facility] Ionized Calcium, cali POC 4.80 4.50 - 5.10 mg/dL [facility] Blood 06/09/2024 5:59 AM CDT 06/09/2024 5:59 AM CDT [facility] DO LAB POCT ORDERABLES - DEVICE F inal Result Performing Organization Address [facility] Co de Phone Number CHARLEY [address] [address] * ABO/Rh (06/09/2024 5:57 AM CDT) ABO/Rh O Positive Blood 06/09/2024 5:57 AM CDT 06/09/2024 6:00 AM CDT Narrative CHARLEY - 06/09/2024 6:36 AM CDT Has the patient had Daratumumab or Isatuximab in the past 6 months?->Unknown [facility] LAB BLOOD BANK TEST ORDERABLES Final Result Performing Organization Address [facility] de Phone Number LEXIE[address] [place] [address] * Antibody screen (06/09/2024 5:57 AM CDT) Juanis, indirect, Gel Interpretation Negative ABSC Blood 06/09/2024 5:57 AM CDT 06/09/2024 6:00 AM CDT Narrative CHARLEY - 06/09/2024 6:36 AM CDT Has the patient had Daratumumab or Isatuximab in the past 6 months?->Unknown [employer] LAB BLOOD BANK TEST ORDERABLES Final Result Performing Organization Address [facility] Co de Phone Number [address] [address] * Diagnostic Mammogram Right W Lenin (06/08/2024 [...] by Yoni James M.D., MD: Report ID: [id number] Reading Location: [facility] us Colin Villalba MD IM MAMMO PROCEDURES Final Res ult * eGFR (05/24/2024 10:39 AM CDT) eGFR >90 >=60 mL/min/1. 73 [...] of Race in Diagnosing Kidney Disease, JASN 202). The CKD-EPI equation should not be used for patients with unstable renal function and has not been validated in children and those over 70. Current interpretive data was last reviewed 2020. Blood 05/24/2024 10:3 9 AM CDT 05/24/2024 10:44 AM CDT us Blayne Cano DO LAB BLOOD ORDERABLES Final Res ult [facility] [address] [facility] Department [place] [address] * Differential, auto (05/24/2024 10:39 AM CDT) Pathologist [facility] Neutrophil abs 5.8 1.5 - 6.5 K/cumm Imm gran abs 0.0 0.0 - 0.1 K/cumm [facility] Lymphocyte abs 1.9 0.8 - 3.3 K/cumm [facility] Monocyte abs 0.4 0.2 - 0.8 K/cumm [facility] Eosinophil abs 0.1 0.0 - 0.5 K/cumm [facility] Basophil abs 0.0 0.0 - 0.1 K/cumm [facility] Neutrophil pct 70.8 % [facility] Comment: Interpretive Data Percent cell count reference ranges are not reported, since discordance with absolute values may lead to misinterpretation of CBC data. Current Interpretive Data was last revised on 2017. Imm gran pct 0.4 % [facility] Comment: Interpretive Data Percent cell count reference ranges are not reported, since discordance with absolute values may lead to misinterpretation of CBC data. Current Interpretive Data was last revised on 2017. Lymphocyte pct 23.4 % [facility] Comment: Interpretive Data Percent cell count reference ranges are not reported, since discordance with absolute values may lead to misinterpretation of CBC data. Current Interpretive Data was last revised on 2017. Monocyte pct 4.3 % [facility] Comment: Interpretive Data Percent cell count reference ranges are not reported, since discordance with absolute values may lead to misinterpretation of CBC data. Current Interpretive Data was last revised on 2017. Eosinophil pct 0.9 % [facility] Comment: Interpretive Data Percent cell count reference ranges are not reported, since discordance with absolute values may lead to misinterpretation of CBC data. Current Interpretive Data was last revised on 2017. Basophil pct 0.2 % [facility] Comment: Interpretive Data Percent cell count reference ranges are not reported, since discordance with absolute values may lead to misinterpretation of CBC data. Current Interpretive Data was last revised on 2017. Blood 05/24/2024 10:3 9 AM CDT 05/24/2024 10:44 AM CDT Blayne Cano DO LAB BLOOD ORDERABLES Final Res ult CHARLEY [address] [facility] Department [place] [address] * Infection Prevention MRSA Only (Staphylococcus aureus) PCR Nasal (05/24/2024 10:39 AM CDT) PCR Scrn, Methicillin resistant Staphylococcus aureus (MRSA) Not Detected Not Detected Comment: Interpretive Data Testing performed using Nucleic Acid Amplification with the Decurate Xpert MRSA NxG Assay. This assay detects target DNA from mecA, mecC and the SCCmec insertion site of Staphylococcus aureus using Real-Time PCR and has been cleared by the FDA. Performance characteristics have been verified by the [facility]. Current Interpretive Data was last revised on 2022 Nasal 05/24/2024 10:3 9 AM CDT 05/24/2024 10:44 AM CDT us Blayne Cano DO LAB MICROBIOLOGY - GENERAL ORD ERABLES Final Result Performing Organization Address City/[facility]/ZIP Co de Phone Number CHARLEY [address] [address] * CBC with auto differential (05/24/2024 10:39 AM CDT) Pathologist [facility] WBC 8.2 3.8 - 9.9 K/cumm Hgb 12.2 11.9 - 15.5 g/dL [facility] Hct 37.0 35.6 - 45.5 % [facility] Plt 201 150 - 400 K/cumm [facility] MPV 10.9 9.1 - 12.3 fL [facility] RBC 4.34 3.90 - 5.20 M/cumm [facility] MCV 85.3 81.3 - 96.4 fL [facility] MCH 28.1 27.1 - 33.3 pg [facility] MCHC 33.0 32.3 - 35.7 g/dL [facility] RDW CV 13.1 11.1 - 14.9 % [facility] RDW SD 40.8 35.7 - 48.1 fL [facility] NRBC abs 0.00 0.00 - 0.01 K/cumm [facility] Blood 05/24/2024 10:3 9 AM CDT 05/24/2024 10:44 AM CDT Blayne Cano DO LAB BLOOD ORDERABLES Final Res ult Performing Organization Address City/[facility]/ZIP Co de Phone Number CHARLEY [address] [address] * ABO/Rh (05/24/2024 10:39 AM CDT) [facility] ABO/Rh O Positive Blood 05/24/2024 10:3 9 AM CDT 05/24/2024 10:44 AM CDT Narrative [facility] - 05/24/2024 11:22 AM CDT Is this test being ordered in advance for a procedure?->Yes Expected date of procedure:->06/09/24 Has the patient been transfused in the past 3 months?->No Has the patient been in the past 3 months?->No [employer] LAB BLOOD BANK TEST ORDERABLES Final Result Performing Organization Address [facility] de Phone Number LEXIE[address] [address] * Antibody screen (05/24/2024 10:39 AM CDT) [facility] Juanis, indirect, Gel Interpretation Negative ABSC Blood 05/24/2024 10:3 9 AM CDT 05/24/2024 10:44 AM CDT N[facility]ative [facility] 05/24/2024 11:22 AM CDT Is this test being ordered in advance for a procedure?->Yes Expected date of procedure:->06/09/24 Has the patient been transfused in the past 3 months?->No Has the patient been in the past 3 months?->No [facility] LAB BLOOD BANK TEST ORDERABLES Final Result Performing Organization Address [facility] Phone Number [address] [address] * Hemoglobin A1c (05/24/2024 10:39 AM CDT) [facility] Hgb A1C 5.2 4.0 - 5.6 % Estimated Average Glucose 103 mg/dL [facility] Comment: The ADA recommends reporting an estimated Average Glucose (eAG) with all Hemoglobin A1c results using the equation derived from a study of 507 normal and diabetic adults. Minority populations were underrepresented and children were not included. (Diabetes Care 31:6344-1126, 2008). The eAG is not equivalent to a fasting glucose. Blood 05/24/2024 10:3 9 AM CDT 05/24/2024 10:44 AM CDT [employer] LAB BLOOD ORDERABLES Final Res ult Performing Organization Address [facility] de Phone Number [address] [place] [address] * (ABNORMAL) Comprehensive metabolic panel (05/24/2024 10:39 AM CDT) Sodium 139 135 - 145 mmol/L Potassium, pl 3.0(L) 3.3 - 4.9 mmol/L [facility] Chloride 100 97 - 110 mmol/L [facility] CO2 31 22 - 32 mmol/L [facility] Anion gap 8 2 - 15 mmol/L [facility] BUN 6 6 - 25 mg/dL [facility] Creatinine 0.58(L) 0.60 - 1.10 mg/dL [facility] Glucose 119 70 - 199 mg/dL [facility] Comment: Interpretive Data Fasting glucose >/= 126 [...] classification and Diagnosis of Diabetes Diabetes Care 202; 46: S19-S40. Current interpretive data was last revised 2022. Calcium 9.0 8.5 - 10.3 mg/dL [facility] Bilirubin, total 0.5 0.1 - 1.2 mg/dL [facility] Protein, pl 7.2 6.5 - 8.5 g/dL [facility] Albumin 3.9 3.5 - 5.0 g/dL [facility] Alk phos 84 40 - 130 Units/L [facility] ALT 9 7 - 45 Units/L [facility] AST 16 10 - 45 Units/L [facility] Blood 05/24/2024 10:3 9 AM CDT 05/24/2024 10:44 AM CDT us Blayne Cano DO LAB BLOOD ORDERABLES Final Res ult [facility] [place] [address] * ECG 12 lead (05/24/2024 10:31 AM CDT) Ventricular Rate EKG/Min 87 BPM [facility] Atrial Rate 87 BPM [facility] IA-Interval (MSEC) 188 ms [facility] QRS-Interval (MSEC) 86 ms [facility] QT-Interval (MSEC) 380 ms [facility] QTc 457 ms [facility] P Murray 35 degrees [facility] R Murray -1 degrees [facility] T Murray 39 degrees [facility] Diagnosis Normal sinus rhythm Cannot rule out Inferior infarct (cited on or before 19-FEB-2023) Abnormal ECG When compared with ECG of 19-FEB-2023 12:01, No significant change was found Confirmed by MARIZOL GALINDO M.D. ([id number]) on 05/25/2024 7:46:44 AM [facility] 05/24/2024 10:3 1 AM CDT 05/25/2024 7:46 AM CDT Carline Zavala SPECIAL EFFECTS ARTIST ECG ORDERABLES Jessy woods Result [facility] * XR Hip Left 2 or 3 Views W Pelvis (04/06/2024 10:03 AM COTTON FARMWORKER) Anatomical Region Laterality Modality Lower Extremities, Hip, Pelvis Left C omputed Radiography 04/06/2024 10:0 6 AM COTTON FARMWORKER Impressions 04/06/2024 10:06 AM COTTON FARMWORKER 1. Unchanged, moderate left hip osteoarthritis. Electronically signed by: Bishop Downs M.D. Narrative 04/06/2024 10:06 AM COTTON FARMWORKER EXAMINATION: XR HIP LEFT 2 OR 3 [...] identified in the left breast on mammogram. us Self Screening Mammogram IMG MAMMO PROCEDURES Fi [...] 5 AM CDT 08/17/2020 11:17 AM CDT Xavier Collins MD LAB URINE ORDERABLES Final Resul t [facility] [address] [place] [address] * (ABNORMAL) Lipid panel (09/26/2019 9:10 PM CDT) SCRIBED Cholesterol, Total 155 100 - 199 [facility] SCRIBED HDL 48(A) n/a - 39 [facility] SCRIBED LDL 84 0 - 99 [facility] SCRIBED Triglycerides 116 0 - 149 [facility] Blood specimen (specimen) Historical Michelle MEJIA LAB BLOOD ORDERABLES Edit ed Result - Final [facility] * HM PAP SMEAR WITH HPV (10/08/2017) Historical Provider HEALTH MAINTENANCE Final Result from Last 3 Months or Most Recently Relevant to Health Maintenance Insurance [facility] Advance Directives For more information, please contact: [phone] * Full Code (Latest Code Status on File) Date Activated Date Inactivated Comments 06/09/2024 11:20 AM 06/10/2024 6:13 PM * Full Code Date Activated Date Inactivated Comments 06/09/2024 11:13 AM 06/09/2024 11:20 AM Care Teams Inside Sales Administrator Relationship Specialty Start Date End Date Christo Haas MD [address] [address] PCP - General Family Medicine 05/02/24 Stephanie Dangelo PA [address] [place] [address] Orthopedic Surgery 06/09/24
--- OUTSIDE RECORDS SUMMARY | 2024-06-22 13:41 | XMS_ITS | Encounter Summary ---
Author Organization [facility] Facility Care Team Providers Care Mat Cleaning Machine Operator Name Role Phone Christo Haas MD Primary Care Provider [phone] Christo Haas MD Primary Care Provider [phone] Unknown, Notinfile Primary Care Provider Unavail able Sue Xavier Primary Care Provider Christo Haas MD Primary Care Provider [phone] Sue Xavier Primary Care Provider Christo Haas MD Primary Care Provider [phone] Sue Xavier Primary Care Provider Christo Haas MD Primary Care Provider [phone] Christo Haas MD Primary Care Provider [phone] Stephanie Dangelo Unavailable [phone] Encounter Details Date Type Department Care Team (Latest Contact Info) Description 12/30/2012 Orders Only [facility] CLINCONV ProviderDaryl MD [address] [place] [address] Social History Tobacco Use Types Packs/Day Years Used Date Smoking Tobacco: Never Assessed Comments Unknown Sex and Gender Information Value Date Recorded Sex Assigned at Not on file Legal Sex Female 2:05 AM FORM TAMPING MACHINE OPERATOR Gender Identity Female 03/19/2020 11:04 AM FORM TAMPING MACHINE OPERATOR Sexual Orientation Straight 03/19/2020 11 :04 AM FORM TAMPING MACHINE OPERATOR documented as of this encounter Plan of Treatment Not on file documented as of this encounter Procedures Procedure Name Priority Date/Time Associated Diagnosis Comments CARDIOLOGY REPORT 12/31/2015 12: 00 AM CDT documented in this encounter Results * CARDIOLOGY REPORT (12/31/2015 12:00 AM CDT) Anatomical Region Laterality Modality Other Narrative 12/31/2015 12:00 AM CDT Ordered by an unspecified provider. us Historical Provider [facility] MOJGAN DIEHL Final Result documented in this encounter Visit Diagnoses Not on filedocumented in this encounter Additional Health Concerns Infection Onset Date Last Indicated Resolved Time COVID: Suspected 03/03/2021 03/03/2021 03/04/2021 4:04 AM FORM TAMPING MACHINE OPERATOR COVID19 03/03/2021 03/03/2021 03/17/2021 3:05 AM FORM TAMPING MACHINE OPERATOR COVID: Recovered Comment:Added based on recent COVID infection. 03/17/2021 03/27/2021 07/15/2021 3:05 AM C DT COVID19 Comment:PT REPORTS COVID POSITIVE 12\7\23 SYMPTOM ONSET 12\5\23 02/04/2023 02/04/2023 02/14/2023 3:05 AM FORM TAMPING MACHINE OPERATOR documented as of this encounter Care Teams Mat Cleaning Machine Operator Relationship Specialty Start Date End Date Christo Haas MD PCP - General 05/29/16 10/07/17 Christo Haas MD PCP - General 12/23/09 05/28/16 Unknown, Notinfile PCP - General 10/08/17 02/27/19 [...] Family Medicine 08/26/22 05/01/24 Christo Haas MD [address] [place] [address] PCP - General Family Medicine 05/02/24 Stephanie Dangelo PA [address] [address] Orthopedic Surgery 06/09/24 documented as of this encounter
[2024-06-22 13:45] LABS: Partial Thromboplastin Time 32.9 Seconds (22.3-36.8); Prothrombin Time 13.9 Seconds (11.1-14.7)
[2024-06-22 14:46] VITALS: BP 115/76; PULSE 87; RESP 16; O2SAT 99
--- OUTSIDE RECORDS SUMMARY | 2024-06-22 14:48 | XMS_ITS | Encounter Summary ---
Author Organization [facility] Address [address] [place] [address] Care Team Providers Care Textile Slitting Machine Operator Name Role Phone Christo Haas MD Primary Care Provider [phone] Stephanie Dangelo PA Unavailable [phone] Reason for Visit * Physical Therapy (Routine) - Authorized Specialty Diagnoses / Procedures Referred By Contac t Referred To Contact Physical Therapy Diagnoses S/P total left hip arthroplasty Stephanie Dangelo PA [address] [place] [address] Phone: tel: fax: [facility] OP Physical Therapy [address] [place] [address] Phone: tel: fax: Referral ID Status Reason Start Date Expiration Date Visits Requested Visits Authorized [id number] Authorized Evaluate and Treat 06/09/2024 09/03/2024 12 12 Encounter Details Date Type Department Care Team (Late st Contact Info) Description 06/21/2024 1:30 PM CDT Therapy [facility] OP Physical Therapy [address] [place] [address] Rosina Christensen PTA S/P total left hip arthroplasty (Primary Dx) Social History Tobacco Use Types Packs/Day Years Used Date Smoking Tobacco: Former Cigarettes 0.3 12 0 03/21/1996 - 03/21/2008 Passive Smoke Exposure: Past Smokeless Tobacco: Never Passive Exposure Comments:fa ther Alcohol Use Standard Drinks/Week Comments Yes 0 (1 standard drink = 0.6 oz pur e alcohol) On rare occasion [facility] Utilities Answer Date Recorded In [...] often do you attend chur ch or pentecostal services? 1 to 4 times per year 06/09/2024 Do you belong to any clubs o r organizations such as latter-day groups, unions, fraternal or athletic groups, or [...] any time in the past [address] [facility], were you homeless or living in a [...] on file Legal Sex Female 2:05 AM DRILLING MACHINE RUNNER Gender Identity Female 03/19/2020 11:04 AM DRILLING MACHINE RUNNER Sexual Orientation Straight 03/19/2020 11 :04 AM DRILLING MACHINE RUNNER documented as of this encounter Progress Notes * Rosina Christensen, ELEMENTARY READING SPECIALIST - 06/21/2024 1:30 PM CDT Images from the original note were not included. Physical Therapy Visit/Daily Note 06/21/2024 Cinthia Gerardo 1980 ICD-10-CM 1. S/P total left hip arthroplasty Z96.642 STEPHANIE DANGELO Product Marketing Engineer Services Utilized: NO Patient is identified by [...] improved mobility of LLE Rosina Christensen PTA [facility] ATTENTION PHYSICIAN If you are [...] in supine with MHP Premod and Ice Iranian stim X10 mins to L quad avoiding [...] Chronic Care Management No change(02/07 2:07 PM DRILLING MACHINE RUNNER) Jeanette Alcaraz, RN Note: Problem: Chronic Pain [...] Primary documented in this encounter Care Teams Textile Slitting Machine Operator Relationship Specialty Start Date End Date Christo Haas MD [address] [place] [address] PCP - General Family Medicine 05/02/24 Stephanie Dangelo PA [address] [address] Orthopedic Surgery 06/09/24 documented as of this encounter
--- OUTSIDE RECORDS SUMMARY | 2024-06-22 14:48 | XMS_ITS | CONTINUITY OF CARE DOCUMENT ---
Author Name reinaldo najera Address Unknown Organization [facility] Address [address] [place] [address] Phone [phone] Care Team Providers Care Grocery Clerk Stocking Name Role Phone reinaldo najera Unavailable Unavailable INSURANCE PROVIDERS Payer name Policy type / Coverage type Agency red libertarian ID [facility] [employer] insurance [employer] 9 [id number]
--- OUTSIDE RECORDS SUMMARY | 2024-06-22 14:48 | XMS_ITS | Clinical Summary ---
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 Denied need for supplies DME [facility] patient Assessment & Plan (04/09/2023 11:19 AM ANNUAL GREENHOUSE MANAGER): The patient has obstructive sleep apnea and [...] 05/21/2020 Assessment & Plan (03/05/2020 5:52 PM ANNUAL GREENHOUSE MANAGER): Hba1c was Lab Results Component Value Date [...] Description 06/22/2024 9:00 AM CDT Office Visit [facility] Medical Group Orthopedics and Sports Medicine [facility] [address] [place] [phone] Stephanie Dangelo PA S/P total left hip arthroplasty (Primary Dx); Spasm of muscle 06/22/2024 8:19 AM CDT Hospital Encounter [facility] Diag Imaging [facility] [place] [address] S/P total left hip arthroplasty 06/21/2024 1:30 PM CDT Therapy [facility] OP Physical Therapy [address] [place] [address] Rosina Christensen, MEL S/P total left hip arthroplasty (Primary Dx) 06/20/2024 8:30 AM CDT Therapy [facility] OP Physical Therapy [address] [place] [address] Lorenzo Pierre PTA S/P total left hip arthroplasty (Primary Dx) 06/15/2024 2:00 PM CDT Therapy [facility] OP Physical Therapy [address] [place] [address] Mildred Gonsales PT S/P total left hip arthroplasty (Primary Dx) 06/15/2024 Plan of Care Documentation [facility] OP Physical Therapy [address] [place] [address] 06/09/2024 7:32 AM CDT Anesthesia Event [facility] OR [address] [place] [address] Ishan Ferreira MD Taylor-White, Carlotta A., MAIL CARRIER 06/09/2024 7:30 AM CDT - 06/09/2024 10:20 AM CDT Surgery [address] [address] Blayne Cano DO LEFT TOTAL HIP ARTHROPLASTY ANTERIOR 06/09/2024 5:17 AM CDT - 06/10/2024 1:57 PM CDT Hospital Encounter [facility] [address] [address] Blayne Cano DO S/P total left hip arthroplasty (Primary Dx); Primary osteoarthritis of left hip Discharge Disposition: Discharge to home or self care 06/08/2024 1:45 PM CDT - 06/08/2024 11:59 PM CDT Hospital Encounter [facility] [address] [address] Other abnormal and inconclusive findings on diagnostic imaging of breast Discharge Disposition: Discharge to home or self care 05/25/2024 11:00 AM CDT Office Visit [facility] Medical Group Neurology [address] [place] [phone] Arlen Brown NP Migraine without aura and without status migrainosus, not intractable (Primary Dx) 05/25/2024 Telephone [facility] PreAdmission Testing [address] [place] [address] Monica Alcantar, ALESSANDRA 05/24/2024 10:30 AM CDT Pre-Admission Testing [facility] PreAdmission Testing [address] [place] [address] Preop examination (Primary Dx); Primary osteoarthritis of left hip; Preop testing; Elevated hemoglobin A1c 05/24/2024 9:00 AM CDT Office Visit [facility] Orthopedics and Sports Medicine [address] [place] [phone] Blayne Cano DO Primary osteoarthritis of left hip (Primary Dx) 05/23/2024 12:00 PM CDT Therapy [facility] OP Occup Therapy [address] [place] [address] Negrita Borrego, MARIANO Primary osteoarthritis of left hip (Primary Dx) 05/23/2024 Plan of Care Documentation [facility] OP Occup Therapy [address] [place] [address] 05/23/[address] [address] Makenzie Phelps RN 05/02/[address] [facility] Medical Group Orthopedics and Sports Medicine [address] [place] [phone] Blayne Cano DO Primary osteoarthritis of left hip (Primary Dx) 05/01/2024 8:30 AM ANNUAL GREENHOUSE MANAGER Office Visit [facility] Group Orthopedics and Sports Medicine [address] [place] [phone] Blayne Cano DO Primary osteoarthritis of left hip (Primary Dx); Femoral acetabular impingement 04/12/2024 9:00 AM ANNUAL GREENHOUSE MANAGER Office Visit [facility], [address] [place] [phone] Adrian Rios PA Primary osteoarthritis of left hip (Primary Dx); Chronic SI joint pain 04/06/2024 10:30 AM ANNUAL GREENHOUSE MANAGER Office Visit [facility] Orthopaedic Surgery [address] [facility] Medical Office Building [address] [place] [phone] Enid Snell MD Left hip pain (Primary Dx) 04/06/2024 9:47 AM ANNUAL GREENHOUSE MANAGER - 04/06/2024 11:59 PM ANNUAL GREENHOUSE MANAGER Hospital Encounter [facility] [address] [facility] [address] [place] [phone] Left hip pain Discharge Disposition: Discharge to home or self care 03/29/2024 11:00 AM ANNUAL GREENHOUSE MANAGER Therapy [facility] OP Physical Therapy [address] [place] [address] [address] [place] [address] Michelle Underwood, PT Left low back pain, [...] oz pur e alcohol) On rare occasion [facility] Utilities Answer Date Recorded In the past [...] often do you attend chur ch or evangelical services? 1 to 4 times per year 06/09/2024 Do you belong to any clubs o r organizations such as yarsani groups, unions, fraternal or athletic groups, or [...] time in the past 12 m [facility], were you homeless or living in a snf (including now)? No 06/09/2024 Personal Safety Answer Date Recorded Have you ever been in or are you currently in a harmful physical or emotional relationship or is someone making you feel afraid or unsafe? Denies 06/09/2024 Comments No Sex and Gender Information Value Date Recorded Sex Assigned at Not on file Legal Sex Female 2:05 AM ANNUAL GREENHOUSE MANAGER Gender Identity Female 03/19/2020 11:04 AM ANNUAL GREENHOUSE MANAGER Sexual Orientation Straight 03/19/2020 11 :04 AM ANNUAL GREENHOUSE MANAGER Obstetrics History Para Term AB IAB SAB [...] Chronic Care Management No change(02/07 2:07 PM ANNUAL GREENHOUSE MANAGER) No Jeanette Thurman, ALESSANDRA Note: Problem: Chronic Pain Goals: 1. Minimize further functional decline 2. Maximize quality of life 3. Control pain Strategies: - Activity/exercise program recommendation - Conservative stepwise pain medicine strategy with multi-disciplinary approach - Recommend healthy lifestyle strategies and compensatory methods as needed Medical Devices Implanted Type Area Broomcorn Sorter Device Identifier Shelf Expiration Date Model / Serial / Lot MyDentist Partnership Marker Biospy Site Mini Cork Shape [employer] Anais - [id number] Implanted:Qty: 1 on 11/19/2023 by Colin Villalba MD at [facility] Right: Breast [employer] Partnership [id number] 07/07/2024 KRISTENK-JUAN C O / / [id number] [employer]ologic [employer] Partnership Marker Tissue Deployment Device [id number] [employer] [id number] - [id number] Implanted:Qty: 1 on 11/19/2023 by Colin Villalba MD at [facility] Axilla [employer] Limited Partnership [id number] 01/11/2028 [id number] / / [id number] Pins Left: Ankle [place] Right: Heel [employer] [place] 54mm Sector Hip Shell Acetabular Gription Sterile Latex Free [id number] - [id number] Implanted:Qty: 1 on 06/09/2024 by Blayne Cano DO at [facility] Left: Hip [employer] [id number] 02/28/2034 [id number] / / [id number] [employer] [place] 54mm 36mm Hip Neutral Liner Acetabular Altrx Sterile Latex Free [id number] - [id number] Implanted:Qty: 1 on 06/09/2024 by Blayne Cano DO at [facility] Left: Hip [employer] [id number] 02/28/2029 [id number] / / [id number] [employer] [place] 54mm Sector Hip Shell Acetabular Gription Sterile Latex Free [id number] - [id number] Implanted:Qty: 1 on 06/09/2024 by Blayne Cano DO at [facility] Left: Hip [employer] [id number] 02/28/2034 [id number] / / [id number] [employer] Actis Collared Hip 02/11 6 Standard Offset Stem Femoral [id number] - [id number] Implanted:Qty: 1 on 06/09/2024 by Blayne Cano DO at [facility] Left: Hip [employer] [id number] 03/31/2034 [id number] / / [id number] [employer] Articul/Elia 36mm Cementless Hip +8.5mm 02/11 Taper Head Femoral Latex Free 1365-36-330 - [id number] Implanted:Qty: 1 on 06/09/2024 by Blayne Cano DO at [facility] Left: Hip [employer] [id number] 02/28/2029 1365-36-330 / / [id number] Procedures Procedure Name Priority Date/Time Associated Diagnosis [...] Read Routine (OP Routine) 04/06/2024 10:03 AM ANNUAL GREENHOUSE MANAGER Left hip pain SCREENING MAMMOGRAM BILATERAL W [...] ORDERABLES - DEVICE F inal Result [facility] [address] [facility] [place] [address] * eGFR (06/10/2024 2:46 AM [...] Stephanie GUADALUPE LAB BLOOD ORDERABLES Final Result [facility] [address] [facility] [place] [address] * (ABNORMAL) Differential, auto (06/10/2024 2:46 AM CDT) Neutrophil abs 9.33(H) 1.50 - 6.50 K/cumm Imm gran abs 0.06 0.00 - 0.10 K/cumm [facility] Lymphocyte abs 1.44 0.80 - 3.30 K/cumm [facility] Monocyte abs 0.78 0.20 - 0.80 K/cumm [facility] Eosinophil abs 0.00 0.00 - 0.50 K/cumm [facility] Basophil abs 0.02 0.00 - 0.10 K/cumm [facility] Neutrophil pct 80.2 % [facility] Comment: Interpretive Data Percent cell count reference ranges are not reported, since discordance with absolute values may lead to misinterpretation of CBC data. Current Interpretive Data was last revised on 2017. Imm gran pct 0.5 % [facility] Comment: Interpretive Data Percent cell count reference ranges are not reported, since discordance with absolute values may lead to misinterpretation of CBC data. Current Interpretive Data was last revised on 2017. Lymphocyte pct 12.4 % [facility] Comment: Interpretive Data Percent cell count reference ranges are not reported, since discordance with absolute values may lead to misinterpretation of CBC data. Current Interpretive Data was last revised on 2017. Monocyte pct 6.7 % [facility] Comment: Interpretive Data Percent cell count reference ranges are not reported, since discordance with absolute values may lead to misinterpretation of CBC data. Current Interpretive Data was last revised on 2017. Eosinophil pct 0.0 % [facility] Comment: Interpretive Data Percent cell count reference ranges are not reported, since discordance with absolute values may lead to misinterpretation of CBC data. Current Interpretive Data was last revised on 2017. Basophil pct 0.2 % [facility] Comment: Interpretive Data Percent cell count reference ranges are not reported, since discordance with absolute values may lead to misinterpretation of CBC data. Current Interpretive Data was last revised on 2017. Blood 06/10/2024 2:46 AM CDT 06/10/2024 2:56 AM CDT Nancy GUADALUPE LAB BLOOD ORDERABLES Final Re sult [address] [place] [address] * (ABNORMAL) CBC with auto differential (06/10/2024 2:46 AM CDT) WBC 11.63(H) 3.80 - 9.90 K/cumm Hgb 9.7(L) 11.9 - 15.5 g/dL [facility] Hct 29.7(L) 35.6 - 45.5 % [facility] Plt 186 150 - 400 K/cumm [facility] MPV 10.9 9.1 - 12.3 fL [facility] RBC 3.49(L) 3.90 - 5.20 M/cumm [facility] MCV 85.1 81.3 - 96.4 fL [facility] MCH 27.8 27.1 - 33.3 pg [facility] MCHC 32.7 32.3 - 35.7 g/dL [facility] RDW CV 13.7 11.1 - 14.9 % [facility] RDW SD 41.9 35.7 - 48.1 fL [facility] NRBC abs 0.00 0.00 - 0.01 K/cumm [facility] Blood 06/10/2024 2:46 AM CDT 06/10/2024 2:56 AM CDT Nancy GUADALUPE LAB BLOOD ORDERABLES Final Re sult [facility] [address] [facility] [place] [address] * (ABNORMAL) Basic metabolic panel (06/10/2024 2:46 AM CDT) Sodium 138 135 - 145 mmol/L Potassium, pl 3.4 3.3 - 4.9 mmol/L [facility] Chloride 102 97 - 110 mmol/L [facility] CO2 29 22 - 32 mmol/L [facility] Anion gap 7 2 - 15 mmol/L [facility] BUN 7 6 - 25 mg/dL [facility] Creatinine 0.69 0.60 - 1.10 mg/dL [facility] Glucose 126 70 - 199 mg/dL [facility] Comment: Interpretive Data Fasting glucose >/= 126 [...] 2022. Calcium 8.3(L) 8.5 - 10.3 mg/dL [facility] Blood 06/10/2024 2:46 AM CDT 06/10/2024 2:56 AM CDT Stephanie GUADALUPE LAB BLOOD ORDERABLES Final Result [facility] [address] [facility] [place] [address] * POCT glucose (06/09/2024 8:42 PM CDT) Glucose, POC 198 70 - 199 mg/dL Glucose comment 1 Follow Protocol [facility] Blood 06/09/2024 8:42 PM CDT 06/09/2024 8:42 PM CDT [employer] DO LAB POCT ORDERABLES - DEVICE F inal Result Performing Organization Address City/[facility]/ZIP Co de Phone Number CHARLEY [address] [address] * (ABNORMAL) POCT glucose (06/09/2024 4:22 PM CDT) [facility] Glucose, POC 206(H) 70 - 199 mg/dL Blood 06/09/2024 4:22 PM CDT 06/09/2024 4:22 PM CDT [employer] DO LAB POCT ORDERABLES - DEVICE F inal Result Performing Organization Address [facility] Co de Phone Number [facility]LEY [address] [address] * (ABNORMAL) Differential, auto (06/09/2024 1:01 PM CDT) [facility] Neutrophil abs 15.44(H) 1.50 - 6.50 K/cumm Imm gran abs 0.18(H) 0.00 - 0.10 K/cumm [facility] Lymphocyte abs 1.18 0.80 - 3.30 K/cumm [facility] Monocyte abs 0.30 0.20 - 0.80 K/cumm [facility] Eosinophil abs 0.00 0.00 - 0.50 K/cumm [facility] Basophil abs 0.03 0.00 - 0.10 K/cumm [facility] Neutrophil pct 90.0 % [facility] Comment: Interpretive Data Percent cell count reference ranges are not reported, since discordance with absolute values may lead to misinterpretation of CBC data. Current Interpretive Data was last revised on 2017. Imm gran pct 1.1 % [facility] Comment: Interpretive Data Percent cell count reference ranges are not reported, since discordance with absolute values may lead to misinterpretation of CBC data. Current Interpretive Data was last revised on 2017. Lymphocyte pct 6.9 % [facility] Comment: Interpretive Data Percent cell count reference ranges are not reported, since discordance with absolute values may lead to misinterpretation of CBC data. Current Interpretive Data was last revised on 2017. Monocyte pct 1.8 % [facility] Comment: Interpretive Data Percent cell count reference ranges are not reported, since discordance with absolute values may lead to misinterpretation of CBC data. Current Interpretive Data was last revised on 2017. Eosinophil pct 0.0 % [facility] Comment: Interpretive Data Percent cell count reference ranges are not reported, since discordance with absolute values may lead to misinterpretation of CBC data. Current Interpretive Data was last revised on 2017. Basophil pct 0.2 % [facility] Comment: Interpretive Data Percent cell count reference ranges are not reported, since discordance with absolute values may lead to misinterpretation of CBC data. Current Interpretive Data was last revised on 2017. Blood 06/09/2024 1:01 PM CDT 06/09/2024 1:10 PM CDT us Nancy GUADALUPE LAB BLOOD ORDERABLES Final Re sult [facility] [address] [facility] [place] [address] * (ABNORMAL) CBC with auto differential (06/09/2024 1:01 PM CDT) WBC 17.13(H) 3.80 - 9.90 K/cumm Hgb 11.8(L) 11.9 - 15.5 g/dL [facility] Hct 35.0(L) 35.6 - 45.5 % [facility] Plt 244 150 - 400 K/cumm [facility] MPV 10.9 9.1 - 12.3 fL [facility] RBC 4.18 3.90 - 5.20 M/cumm [facility] MCV 83.7 81.3 - 96.4 fL [facility] MCH 28.2 27.1 - 33.3 pg [facility] MCHC 33.7 32.3 - 35.7 g/dL [facility] RDW CV 13.7 11.1 - 14.9 % [facility] RDW SD 42.0 35.7 - 48.1 fL [facility] NRBC abs 0.00 0.00 - 0.01 K/cumm [facility] Blood 06/09/2024 1:01 PM CDT 06/09/2024 1:10 PM CDT Nancy GUADALUPE LAB BLOOD ORDERABLES Final Re sult Performing Organization Address City/[facility]/ZIP Co de Phone Number [address] [place] [address] * eGFR (06/09/2024 11:33 AM CDT) eGFR [...] BLOOD ORDERABLES Final Result Performing Organization Address City/[facility]/ZIP Co de Phone Number [address] [place] [address] * Protime-INR (06/09/2024 11:33 AM CDT) PT 13.2 12.0 - 14.6 sec INR 1.0 0.9 - 1.2 [facility] Comment: Ref Range High Interpretive data Oral anticoagulant therapeutic ranges: Venous thromboembolism prophylaxis or treatment: 2.0-3.0 CARDIOLOGY Standard range: 2.0-3.0 High-intensity range: 2.5-3.5 Refer to indication-specific guidelines for appropriate target ranges for prosthetic heart valve replacement. Current interpretive data was last revised on 2019. Blood 06/09/2024 11:3 3 AM CDT 06/09/2024 11:53 AM CDT Narrative [facility] - 06/09/2024 12:04 PM CDT Baseline prior to apixaban initiation. Stephanie GUADALUPE LAB BLOOD ORDERABLES Final Result [facility] [address] [facility] Department [place] [address] * (ABNORMAL) CBC without differential (06/09/2024 11:33 AM CDT) [facility] Signature WBC 11.60(H) 3.80 - 9.90 K/cumm Hgb 11.5(L) 11.9 - 15.5 g/dL [facility] Hct 35.0(L) 35.6 - 45.5 % [facility] Plt 228 150 - 400 K/cumm [facility] MPV 11.1 9.1 - 12.3 fL [facility] RBC 4.14 3.90 - 5.20 M/cumm [facility] MCV 84.5 81.3 - 96.4 fL [facility] MCH 27.8 27.1 - 33.3 pg [facility] MCHC 32.9 32.3 - 35.7 g/dL [facility] RDW CV 13.8 11.1 - 14.9 % [facility] RDW SD 42.2 35.7 - 48.1 fL [facility] NRBC abs 0.00 0.00 - 0.01 K/cumm [facility] Blood 06/09/2024 11:3 3 AM CDT 06/09/2024 11:53 AM CDT Narrative [facility] - 06/09/2024 11:58 AM CDT Baseline prior to apixaban initiation. Stephanie GUADALUPE LAB BLOOD ORDERABLES Final Result Performing Organization Address City/[facility] Co de Phone Number LEXIE[address] [address] * Creatinine (06/09/2024 11:33 AM CDT) Creatinine 0.63 0.60 - 1.10 mg/dL Blood 06/09/2024 11:3 3 AM CDT 06/09/2024 11:53 AM CDT [facility] 12:27 PM CDT Baseline prior to apixaban initiation. Stephanie GUADALUPE LAB BLOOD ORDERABLES Final Result Performing Organization Address [facility] Co de Phone Number [address] [place] [address] * Hepatic function panel (06/09/2024 11:33 AM CDT) Bilirubin, total 0.6 0.1 - 1.2 mg/dL Bilirubin, direct 0.3 0.1 - 0.3 mg/dL [facility] Protein, pl 6.8 6.5 - 8.5 g/dL [facility] Albumin 3.8 3.5 - 5.0 g/dL [facility] Alk phos 80 40 - 130 Units/L [facility] ALT 13 7 - 45 Units/L [facility] AST 23 10 - 45 Units/L [facility] Blood 06/09/2024 11:3 3 AM CDT 06/09/2024 11:53 AM CDT [facility] 06/09/[facility] 12:27 PM CDT Baseline prior to apixaban initiation. Stephanie GUADALUPE LAB BLOOD ORDERABLES Final Result Performing Organization Address City/[facility] Co de Phone Number [address] [place] [address] * POCT glucose (06/09/2024 11:22 AM CDT) Glucose, POC 197 70 - 199 mg/dL Blood 06/09/2024 11:2 2 AM CDT 06/09/2024 11:22 AM CDT Blayne Jerome DO LAB POCT ORDERABLES - DEVICE F inal Result [facility] [address] [facility] [place] [address] * XR Hip Left 2 or 3 [...] by Carlitos Jean M.D. T: Report ID: [id number] Reading Location: [id number] Procedure Note Carlitos Jean MD - 06/09/2024 [...] by Carlitos Jean M.D. T: Report ID: [id number] Reading Location: [place] [address] Stephanie GUADALUPE IMG XR PROCEDURES Final Re sult * POCT glucose (06/09/2024 10:24 AM CDT) Glucose, POC 185 70 - 199 mg/dL Glucose comment 1 Use This Result [facility] Blood 06/09/2024 10:2 4 AM CDT 06/09/2024 10:24 AM CDT Blayne Cano DO LAB POCT ORDERABLES - DEVICE F inal Result Performing Organization Address City/[facility]/ZIP Co de Phone Number [facility] [address] [facility] Department [place] [address] * [place] Fluoroscopy < 1 Hour (06/09/2024 9:35 AM CDT) Narrative [email or web address] - 06/09/2024 9:37 AM CDT The images from this study are not interpreted by Radiology. Please refer to the physician's procedure / OR operative note. Blayne Cano DO IMG FLUOROSCOPY PROCEDURES Fin al Result Performing Organization Address City/[facility]/ZIP Co de Phone Number [email or web address] * [place] AN ELECTIVE ENDOTRACHEAL AIRWAY, [place] AN PROCEDURE PLACEHOLDER (06/09/2024 7:58 AM CDT) Narrative Rossy Lambert CRNA - 06/09/2024 7:58 AM CDT Rossy Lambert CRNA 06/09/2024 7:58 AM Airway Patient location: OR Urgency: elective Date/time: 06/09/2024 7:36 AM Indications for airway management: anesthesia and airway protection Difficult airway: no Staff: Placed by: HISTORIAN DRAMATIC ARTS: Rossy Lambert CRNA Emergent airway documentation: Risks [...] cali POC 41 40 - 50 mmHg [facility] pO2,cali POC 49 mmHg [facility] Comment: Interpretive Data No reference range established. Current interpretive data was last revised 2019. HCO3, cali (Calc) POC 27 20 - 30 mmol/L [facility] Base excess, cali POC 2 mmol/L [facility] Comment: Interpretive Data No reference range established. Current interpretive data was last revised 2019. Hemoglobin, cali POC 12.9 11.9 - 15.5 g/dL [facility] Hematocrit, cali POC 38.0 35.6 - 45.5 % [facility] Sodium, cali POC 138 135 - 145 mmol/L [facility] Potassium, cali POC 3.6 3.3 - 4.9 mmol/L [facility] Comment: Interpretive Data This method is not able to assess for hemolysis, which may falsely increase potassium concentrations. If further testing is needed to evaluate this result, consider in-laboratory plasma potassium. Current Interpretive Data was last revised on 2021. Glucose, cali POC 140 70 - 199 mg/dL [facility] Ionized Calcium, cali POC 4.80 4.50 - 5.10 mg/dL [facility] Blood 06/09/2024 5:59 AM CDT 06/09/2024 5:59 AM CDT Minted DO LAB POCT ORDERABLES - DEVICE F inal Result Performing Organization Address City/[facility]/ZIP Co de Phone Number [address] [address] * ABO/Rh (06/09/2024 5:57 AM CDT) ABO/Rh O Positive Blood 06/09/2024 5:57 AM CDT 06/09/2024 6:00 AM CDT Narrative [facility] - 06/09/2024 6:36 AM CDT Has the patient had Daratumumab or Isatuximab in the past 6 months?->Unknown [employer] BLOOD BANK TEST ORDERABLES Final Result Performing Organization Address [facility] de Phone Number [address] [address] * Antibody screen (06/09/2024 5:57 AM CDT) Juanis, indirect, Gel Interpretation Negative ABSC Blood 06/09/2024 5:57 AM CDT 06/09/2024 6:00 AM CDT Narrative [facility] - 06/09/2024 6:36 AM CDT Has the patient had Daratumumab or Isatuximab in the past 6 months?->Unknown [employer] LAB BLOOD BANK TEST ORDERABLES Final Result Performing Organization Address [facility] Co de Phone Number [address] [address] * Diagnostic Mammogram Right W Lenin (06/08/2024 [...] by Yoni James M.D., MD: Report ID: [id number] Reading Location: [facility] Colin Villalba MD IM MAMMO PROCEDURES Final Res ult * eGFR (05/24/2024 10:39 AM CDT) Pathologist [facility] eGFR >90 >=60 mL/min/1. 73 m2 Comment: [...] LAB BLOOD ORDERABLES Final Res ult [facility] [address] [facility] [place] [address] * Differential, auto (05/24/2024 10:39 AM CDT) [facility] Neutrophil abs 5.8 1.5 - 6.5 K/cumm Imm gran abs 0.0 0.0 - 0.1 K/cumm [facility] Lymphocyte abs 1.9 0.8 - 3.3 K/cumm [facility] Monocyte abs 0.4 0.2 - 0.8 K/cumm [facility] Eosinophil abs 0.1 0.0 - 0.5 K/cumm [facility] Basophil abs 0.0 0.0 - 0.1 K/cumm [facility] Neutrophil pct 70.8 % [facility] Comment: Interpretive Data Percent cell count reference ranges are not reported, since discordance with absolute values may lead to misinterpretation of CBC data. Current Interpretive Data was last revised on 2017. Imm gran pct 0.4 % [facility] Comment: Interpretive Data Percent cell count reference ranges are not reported, since discordance with absolute values may lead to misinterpretation of CBC data. Current Interpretive Data was last revised on 2017. Lymphocyte pct 23.4 % [facility] Comment: Interpretive Data Percent cell count reference ranges are not reported, since discordance with absolute values may lead to misinterpretation of CBC data. Current Interpretive Data was last revised on 2017. Monocyte pct 4.3 % [facility] Comment: Interpretive Data Percent cell count reference ranges are not reported, since discordance with absolute values may lead to misinterpretation of CBC data. Current Interpretive Data was last revised on 2017. Eosinophil pct 0.9 % [facility] Comment: Interpretive Data Percent cell count reference ranges are not reported, since discordance with absolute values may lead to misinterpretation of CBC data. Current Interpretive Data was last revised on 2017. Basophil pct 0.2 % [facility] Comment: Interpretive Data Percent cell count reference ranges are not reported, since discordance with absolute values may lead to misinterpretation of CBC data. Current Interpretive Data was last revised on 2017. Blood 05/24/2024 10:3 9 AM CDT 05/24/2024 10:44 AM CDT us Blayne Cano DO LAB BLOOD ORDERABLES Final Res ult [facility] [address] [facility] [place] [address] * Infection Prevention MRSA Only (Staphylococcus aureus) PCR Nasal (05/24/2024 10:39 AM CDT) PCR Scrn, Methicillin resistant Staphylococcus aureus (MRSA) Not Detected Not Detected Comment: Interpretive Data Testing performed using Nucleic Acid Amplification with the [employer] Xpert MRSA NxG Assay. This assay detects target DNA from mecA, mecC and the SCCmec insertion site of Staphylococcus aureus using Real-Time PCR and has been cleared by the FDA. Performance characteristics have been verified by the [facility]. Current Interpretive Data was last revised on 2022 Nasal 05/24/2024 10:3 9 AM CDT 05/24/2024 10:44 AM CDT Blayne [employer]Tracksvandana LAB MICROBIOLOGY - GENERAL ORD ERABLES Final Result Performing Organization Address City/[facility]/ZIP Co de Phone Number CHAR[facility] [address] [address] * CBC with auto differential (05/24/2024 10:39 AM CDT) WBC 8.2 3.8 - 9.9 K/cumm Hgb 12.2 11.9 - 15.5 g/dL [facility] Hct 37.0 35.6 - 45.5 % [facility] Plt 201 150 - 400 K/cumm [facility] MPV 10.9 9.1 - 12.3 fL [facility] RBC 4.34 3.90 - 5.20 M/cumm [facility] MCV 85.3 81.3 - 96.4 fL [facility] MCH 28.1 27.1 - 33.3 pg [facility] MCHC 33.0 32.3 - 35.7 g/dL [facility] RDW CV 13.1 11.1 - 14.9 % [facility] RDW SD 40.8 35.7 - 48.1 fL [facility] NRBC abs 0.00 0.00 - 0.01 K/cumm [facility] Blood 05/24/2024 10:3 9 AM CDT 05/24/2024 10:44 AM CDT Blayne [facility] LAB BLOOD ORDERABLES Final Res ult Performing Organization Address City/[facility]/ZIP Co de Phone Number CHAR[facility] [address] [address] * ABO/Rh (05/24/2024 10:39 AM CDT) ABO/Rh O Positive Blood 05/24/2024 10:3 9 AM CDT 05/24/2024 10:44 AM CDT [facility] 05/[facility] 11:22 AM CDT Is this test being ordered in advance for a procedure?->Yes Expected date of procedure:->06/09/24 Has the patient been transfused in the past 3 months?->No Has the patient been in the past 3 months?->No Blayne [facility] LAB BLOOD BANK TEST ORDERABLES Final Result Performing Organization Address [facility] de Phone Number [address] [place] [address] * Antibody screen (05/24/2024 10:39 AM CDT) Juanis, indirect, Gel Interpretation Negative ABSC Blood 05/24/2024 10:3 9 AM CDT 05/24/2024 10:44 AM CDT [facility]ative [facility] 05/24/[facility]24 11:22 AM CDT Is this test being ordered in advance for a procedure?->Yes Expected date of procedure:->06/09/24 Has the patient been transfused in the past 3 months?->No Has the patient been in the past 3 months?->No [facility] BLOOD BANK TEST ORDERABLES Final Result Performing Organization Address [facility] de Phone Number [address] [place] [address] * Hemoglobin A1c (05/24/2024 10:39 AM CDT) Hgb A1C 5.2 4.0 - 5.6 % Estimated Average Glucose 103 mg/dL [facility] Comment: The ADA recommends reporting an estimated Average Glucose (eAG) with all Hemoglobin A1c results using the equation derived from a study of 507 normal and diabetic adults. Minority populations were underrepresented and children were not included. (Diabetes Care 31:2415-3153, 2008). The eAG is not equivalent to a fasting glucose. Blood 05/24/2024 10:3 9 AM CDT 05/24/2024 10:44 AM CDT us Blayne Cano DO LAB BLOOD ORDERABLES Final Res ult [facility] [address] [facility] [place] [address] * (ABNORMAL) Comprehensive metabolic panel (05/24/2024 10:39 AM CDT) Pathologist [facility] Sodium 139 135 - 145 mmol/L Potassium, pl 3.0(L) 3.3 - 4.9 mmol/L [facility] Chloride 100 97 - 110 mmol/L [facility] CO2 31 22 - 32 mmol/L [facility] Anion gap 8 2 - 15 mmol/L [facility] BUN 6 6 - 25 mg/dL [facility] Creatinine 0.58(L) 0.60 - 1.10 mg/dL [facility] Glucose 119 70 - 199 mg/dL [facility] Comment: Interpretive Data Fasting glucose >/= 126 [...] 2022. Calcium 9.0 8.5 - 10.3 mg/dL [facility] Bilirubin, total 0.5 0.1 - 1.2 mg/dL [facility] Protein, pl 7.2 6.5 - 8.5 g/dL [facility] Albumin 3.9 3.5 - 5.0 g/dL [facility] Alk phos 84 40 - 130 Units/L [facility] ALT 9 7 - 45 Units/L [facility] AST 16 10 - 45 Units/L [facility] Blood 05/24/2024 10:3 9 AM CDT 05/24/2024 10:44 AM CDT Blayne Jerome DO LAB BLOOD ORDERABLES Final Res ult Performing Organization Address [facility]/ZIP Co de Phone Number [facility] [address] [facility] [place] [address] * ECG 12 lead (05/24/2024 10:31 AM CDT) Ventricular Rate EKG/Min [address] [facility] Atrial Rate 87 BPM [facility] [place]-Interval (MSEC) [address] [facility] QRS-Interval (MSEC) [address] [facility] QT-Interval (MSEC) 380 ms [facility] QTc 457 ms [facility] P Alpine 35 degrees [facility] R [place] -1 degrees [facility] T [place]pine 39 degrees [facility] Diagnosis Normal sinus rhythm Cannot rule out Inferior infarct (cited on or before 19-FEB-2023) Abnormal ECG When compared with ECG of 19-FEB-2023 12:01, No significant change was found Confirmed by MARIZOL GALINDO M.D. ([id number]) on 05/25/2024 7:46:44 AM [facility] 05/24/2024 10:3 1 AM CDT 05/25/2024 7:46 AM CDT Carline Zavala MAIL CARRIER ECG ORDERABLES Jessy l Result Performing Organization Address [facility] Co de Phone Number [facility] * XR Hip Left 2 or 3 Views W Pelvis (04/06/2024 10:03 AM ANNUAL GREENHOUSE MANAGER) Anatomical Region Laterality Modality Lower Extremities, Hip, Pelvis Left C omputed Radiography 04/06/2024 10:0 6 AM ANNUAL GREENHOUSE MANAGER Impressions 04/06/2024 10:06 AM ANNUAL GREENHOUSE MANAGER 1. Unchanged, moderate left hip osteoarthritis. Electronically signed by: Bishop Downs M.D. Narrative 04/06/2024 10:06 AM ANNUAL GREENHOUSE MANAGER EXAMINATION: XR HIP LEFT 2 OR 3 [...] AM CDT 08/17/2020 11:17 AM CDT Result [facility] Xavier Collins MD LAB URINE ORDERABLES Final Resul t [facility] [address] [place] [address] * (ABNORMAL) Lipid panel (09/26/2019 9:10 PM CDT) SCRIBED Cholesterol, Total 155 100 - 199 [facility] SCRIBED HDL 48(A) n/a - 39 [facility] SCRIBED LDL 84 0 - 99 [facility] SCRIBED Triglycerides 116 0 - 149 [facility] Blood specimen (specimen) Result [facility] Historical Michelle MEJIA LAB BLOOD ORDERABLES Edit ed Result - Final [facility] * HM PAP SMEAR WITH HPV (10/08/2017) Result [facility] Historical Provider HEALTH MAINTENANCE Final Result from Last 3 Months or Most Recently Relevant to Health Maintenance Insurance [facility] Advance Directives For more information, please contact: [phone] * Full Code (Latest Code Status on File) Date Activated Date Inactivated Comments 06/09/2024 11:20 AM 06/10/2024 6:13 PM * Full Code Date Activated Date Inactivated Comments 06/09/2024 11:13 AM 06/09/2024 11:20 AM Care Teams Director Of Manufacturing Relationship Specialty Start Date End Date Christo Haas MD [address] [place] [address] PCP - General Family Medicine 05/02/24 Stephanie Dangelo PA [address] [address] Orthopedic Surgery 06/09/24
--- OUTSIDE RECORDS SUMMARY | 2024-06-22 14:48 | XMS_ITS | Encounter Summary ---
Author Organization [facility] Facility Care Team Providers Care Metal Plater Name Role Phone Christo Haas MD Primary Care Provider [phone] Christo Haas MD Primary Care Provider [phone] Unknown, Notinfile Primary Care Provider Unavail able Sue Xavier Primary Care Provider Christo Haas MD Primary Care Provider [phone] Sue Xavier Primary Care Provider Christo Haas MD Primary Care Provider [phone] Sue Xavier Primary Care Provider Christo Haas MD Primary Care Provider [phone] Christo Haas MD Primary Care Provider [phone] Stephanie Dangelo Unavailable [phone] Encounter Details Date Type Department Care Team (Latest Contact Info) Description 12/30/2012 Orders Only [facility] CLINCONV ProviderDaryl MD [address] [place] [address] Social History Tobacco Use Types Packs/Day Years Used Date Smoking Tobacco: Never Assessed Comments Unknown Sex and Gender Information Value Date Recorded Sex Assigned at Not on file Legal Sex Female 2:05 AM HOUSE OFFICER Gender Identity Female 03/19/2020 11:04 AM HOUSE OFFICER Sexual Orientation Straight 03/19/2020 11 :04 AM HOUSE OFFICER documented as of this encounter Plan of [...] COVID: Suspected 03/03/2021 03/03/2021 03/04/2021 4:04 AM HOUSE OFFICER COVID19 03/03/2021 03/03/2021 03/17/2021 3:05 AM HOUSE OFFICER COVID: Recovered Comment:Added based on recent COVID infection. 03/17/2021 03/27/2021 07/15/2021 3:05 AM C DT COVID19 Comment:PT REPORTS COVID POSITIVE 12\7\23 SYMPTOM ONSET 12\5\23 02/04/2023 02/04/2023 02/14/2023 3:05 AM HOUSE OFFICER documented as of this encounter Care Teams Metal Plater Relationship Specialty Start Date End Date Christo [...] Family Medicine 08/26/22 05/01/24 Christo Haas MD [address] [place] [address] PCP - General Family Medicine 05/02/24 Stephanie Dangelo PA [address] [address] Orthopedic Surgery 06/09/24 documented as of this encounter
--- OUTSIDE RECORDS SUMMARY | 2024-06-22 14:48 | XMS_ITS | Encounter Summary ---
Author Organization [facility] Facility Care Team Providers Care Pearler Name Role Phone Christo Haas MD Primary Care Provider [phone] Unknown, Notinfile Primary Care Provider Unavail able Sue Xavier Primary Care Provider Christo Haas MD Primary Care Provider [phone] Sue Xavier Primary Care Provider Christo Haas MD Primary Care Provider [phone] Sue Xavier Primary Care Provider Christo Haas MD Primary Care Provider [phone] Christo Haas MD Primary Care Provider [phone] Stephanie Dangelo Unavailable [phone] Encounter Details Date Type Department Care Team (Latest Contact Info) Description 03/21/2017 Orders Only [facility] CLINCONV ProviderDaryl MD [address] [place] [address] Social History Tobacco Use Types Packs/Day Years Used Date Smoking Tobacco: Never Assessed Alcohol Use Standard Drinks/Week Comments Yes 0 (1 standard drink = 0.6 oz pur e alcohol) Comments Unknown Sex and Gender Information Value Date Recorded Sex Assigned at Not on file Legal Sex Female 2:05 AM CFO CONTROLLER Gender Identity Female 03/19/2020 11:04 AM CFO CONTROLLER Sexual Orientation Straight 03/19/2020 11 :04 AM CFO CONTROLLER documented as of this encounter Plan of Treatment Not on file documented as of this encounter Procedures Procedure Name Priority Date/Time Associated Diagnosis Comments SCAN - PATHOLOGY 03/22/2018 12:0 0 AM CFO CONTROLLER documented in this encounter Results * SCAN - PATHOLOGY (03/22/2018 12:00 AM CFO CONTROLLER) Narrative 03/22/2018 12:00 AM CFO CONTROLLER Ordered by an unspecified provider. us Historical Provider Final Res ult documented in this encounter Visit Diagnoses Not on filedocumented in this encounter Additional Health Concerns Infection Onset Date Last Indicated Resolved Time COVID: Suspected 03/03/2021 03/03/2021 03/04/2021 4:04 AM CFO CONTROLLER COVID19 03/03/2021 03/03/2021 03/17/2021 3:05 AM CFO CONTROLLER COVID: Recovered Comment:Added based on recent COVID infection. 03/17/2021 03/27/2021 07/15/2021 3:05 AM C DT COVID19 Comment:PT REPORTS COVID POSITIVE 12\7\23 SYMPTOM ONSET 12\5\23 02/04/2023 02/04/2023 02/14/2023 3:05 AM CFO CONTROLLER documented as of this encounter Care Teams Pearler Relationship Specialty Start Date End Date Christo [...] Family Medicine 08/26/22 05/01/24 Christo Haas MD [address] [place] [address] PCP - General Family Medicine 05/02/24 Stephanie Dangelo PA [address] [address] Orthopedic Surgery 06/09/24 documented as of this encounter
--- OUTSIDE RECORDS SUMMARY | 2024-06-22 14:48 | XMS_ITS | Encounter Summary ---
Author Organization [facility] Healthcare Address [address] [place] [address] Care Team Providers Care Parking Attendant Name Role Phone Christo Haas MD Primary Care Provider [phone] Stephanie Dangelo Unavailable [phone] Reason for Referral * Diagnostic Imaging (Routine) - Closed Specialty Diagnoses / Procedures Referred By Contac t Referred To Contact Diagnoses S/P total left hip arthroplasty Procedures XR Hip Left W Pelvis 2 or 3 Views [facility] [address] [place] [place] [address] Phone: tel: fax: [address] [address] Referral ID Status Reason Start Date Expiration Date Visits Re quested Visits Authorized [id number] Closed 06/19/2024 07/19/2025 1 1 Reason for Visit * Reason Comments Post-op Encounter Details Date Type Department Care Team ([facility] Contact Info) Description 06/22/2024 9:00 AM CDT Office Visit [facility] Orthopedics and Sports Medicine [facility] [address] [address] Stephanie Dangelo PA [facility] [address] [place] [address] [place] [address] S/P total left hip arthroplasty (Primary Dx); Spasm of muscle Social History Tobacco Use Types Packs/Day Years Used Date Smoking Tobacco: Former Cigarettes 0.3 12 0 03/21/1996 - 03/21/2008 Passive Smoke Exposure: Past Smokeless Tobacco: Never Passive Exposure Comments:fa ther Alcohol Use Standard Drinks/Week Comments Yes 0 (1 standard drink = 0.6 oz pur e alcohol) On rare occasion [facility] Utilities Answer Date Recorded In the past 12 months has th e electric, gas, oil, or water [employer] threatened to shut off services in your [...] week 06/09/2024 How often do you attend [facility] ch or sikh services? 1 to 4 times per year 06/09/2024 Do you belong to any clubs o r organizations such as oriental orthodox groups, unions, fraternal or athletic groups, or [...] any time in the past 12 m [facility], were you homeless or living in [...] on file Legal Sex Female 2:05 AM REMOTE SENSING PROGRAM MANAGER Gender Identity Female 03/19/2020 11:04 AM REMOTE SENSING PROGRAM MANAGER Sexual Orientation Straight 03/19/2020 11 :04 AM REMOTE SENSING PROGRAM MANAGER documented as of this encounter Last Filed [...] Chronic Care Management No change(02/07 2:07 PM REMOTE SENSING PROGRAM MANAGER) No Jeanette Thurman, ALESSANDRA Note: Problem: [...] documented as of this encounter Care Teams Parking Attendant Relationship Specialty Start Date End Date Christo Haas MD [address] [place] [address] PCP - General Family Medicine 05/02/24 Stephanie Dangelo PA [address] [address] Orthopedic Surgery 06/09/24 documented as of this encounter
--- OUTSIDE RECORDS SUMMARY | 2024-06-22 14:48 | XMS_ITS | Encounter Summary ---
Author Organization [facility] Facility Care Team Providers Care Metal Refiner Name Role Phone Unknown, Notinfile Primary Care Provider Unavail able Sue Xavier Primary Care Provider Christo Haas MD Primary Care Provider [phone] Sue Xavier Primary Care Provider Christo Haas MD Primary Care Provider [phone] Sue Xavier Primary Care Provider Christo Haas MD Primary Care Provider [phone] Christo Haas MD Primary Care Provider [phone] Stephanie Dangelo Unavailable [phone] Encounter Details Date Type Department Care Team (Latest Contact Info) Description 01/11/2018 Orders Only [facility] CLINCONV ProviderDaryl MD [address] [place] [address] Social History Tobacco Use Types Packs/Day Years Used Date Smoking Tobacco: Never Assessed Alcohol Use Standard Drinks/Week Comments Yes 0 (1 standard drink = 0.6 oz pur e alcohol) Comments Unknown Sex and Gender Information Value Date Recorded Sex Assigned at Not on file Legal Sex Female 2:05 AM RACK WASHER Gender Identity Female 03/19/2020 11:04 AM RACK WASHER Sexual Orientation Straight 03/19/2020 11 :04 AM RACK WASHER documented as of this encounter Plan of Treatment Not on file documented as of this encounter Procedures Procedure Name Priority Date/Time Associated Diagnosis Comments COLONOSCOPY - SCAN 01/11/2018 12 :00 AM RACK WASHER documented in this encounter Results * COLONOSCOPY - SCAN (01/11/2018 12:00 AM RACK WASHER) Narrative 01/11/2018 12:00 AM RACK WASHER Ordered by an unspecified provider. us Historical Provider Final Res ult documented in this encounter Visit Diagnoses Not on filedocumented in this encounter Additional Health Concerns Infection Onset Date Last Indicated Resolved Time COVID: Suspected 03/03/2021 03/03/2021 03/04/2021 4:04 AM RACK WASHER COVID19 03/03/2021 03/03/2021 03/17/2021 3:05 AM RACK WASHER COVID: Recovered Comment:Added based on recent COVID infection. 03/17/2021 03/27/2021 07/15/2021 3:05 AM C DT COVID19 Comment:PT REPORTS COVID POSITIVE 12\7\23 SYMPTOM ONSET 12\5\23 02/04/2023 02/04/2023 02/14/2023 3:05 AM RACK WASHER documented as of this encounter Care Teams Metal Refiner Relationship Specialty Start Date End Date Unknown, Notinfile PCP - General 10/08/17 02/27/19 Seu Xavier PA PCP - General 02/28/19 03/20/20 Christo Haas MD PCP - General Family Medicine 03/21/20 04/30/20 Sue Xavier PA PCP - General 05/01/20 05/01/20 Christo Haas MD PCP - General Family Medicine 05/02/20 11/30/21 Sue Xavier PA PCP - General Family Medicine 12/01/21 08/24/22 Christo Haas MD PCP - General Family Medicine 08/26/22 05/01/24 Christo Haas MD [address] [place] [address] PCP - General Family Medicine 05/02/24 Stephanie Dangelo PA [address] [address] Orthopedic Surgery 06/09/24 documented as of this encounter
--- OUTSIDE RECORDS SUMMARY | 2024-06-22 14:48 | XMS_ITS | Encounter Summary ---
Author Organization [facility] Address [address] [place] [address] Care Team Providers Care Gas Meter Repairer Name Role Phone Christo Haas MD Primary Care Provider [phone] Stephanie Dangelo Unavailable [phone] Reason for Referral * Diagnostic Imaging (Routine) - Closed Specialty Diagnoses / Procedures Referred By Contac t Referred To Contact Diagnoses S/P total left hip arthroplasty Procedures XR Hip Left W Pelvis 2 or 3 Views Stephanie Dangelo PA [facility] [address] [place] [address] Phone: tel: fax: [address] [phone] Referral ID Status Reason Start Date Expiration Date Visits Re quested Visits Authorized [id number] Closed 06/19/2024 07/19/2025 1 1 Reason for Visit * Diagnostic Imaging (Routine) - Closed Specialty Diagnoses / Procedures Referred By Contac t Referred To Contact Diagnoses S/P total left hip arthroplasty Procedures XR Hip Left W Pelvis 2 or 3 Views Stephanie Dangelo PA [facility] [address] [address] Phone: tel: fax:[phone] [facility] [address] [place] [address] Referral ID Status Reason Start Date Expiration Date Visits Re quested Visits Authorized [id number] Closed 06/19/2024 07/19/2025 1 1 Encounter Details Date Type Department Care Team (Latest Contact Info) Description 06/22/2024 8:19 AM CDT Hospital Encounter [facility] [address] [place] [address] S/P total left hip arthroplasty Social History Tobacco Use Types Packs/Day Years Used Date Smoking Tobacco: Former Cigarettes 0.3 12 0 03/21/1996 - 03/21/2008 Passive Smoke Exposure: Past Smokeless Tobacco: Never Passive Exposure Comments:fa ther Alcohol Use Standard Drinks/Week Comments Yes 0 (1 standard drink = 0.6 oz pur e alcohol) On rare occasion [facility] Utilities Answer Date Recorded In the past 12 months has e [email or web address], gas, oil, or water company threatened to [...] How often do you attend chur or yarsani services? 1 to 4 times per year 06/09/2024 Do you belong to any clubs o r organizations such as druze groups, unions, fraternal or athletic groups, or [...] any time in the past 12 m [facility], were you homeless or living in a [place] [facility] [place] facility (including now)? No 06/09/2024 Personal Safety Answer Date Recorded Have you ever been in or are you currently in a harmful physical or emotional relationship or is someone making you feel afraid or unsafe? Denies 06/09/2024 Comments No Sex and Gender Information Value Date Recorded Sex Assigned at Not on file Legal Sex Female 2:05 AM MARINE SCIENTIST Gender Identity Female 03/19/2020 11:04 AM MARINE SCIENTIST Sexual Orientation Straight 03/19/2020 11 :04 AM MARINE SCIENTIST documented as of this encounter Plan of [...] Chronic Care Management No change(02/07 2:07 PM MARINE SCIENTIST) No Jeanette Thurman, RN Note: Problem: Chronic [...] arthroplasty documented in this encounter Care Teams Gas Meter Repairer Relationship Specialty Start Date End Date Christo Haas MD [address] [place] [address] PCP - General Family Medicine 05/02/24 Stephanie Dangelo PA [address] [facility] [address] [address] Orthopedic Surgery 06/09/24 documented as of this encounter
--- OUTSIDE RECORDS SUMMARY | 2024-06-22 14:48 | XMS_ITS | Encounter Summary ---
Author Organization [facility] Care Team Providers Care Software Quality Test Engineer Name Role Phone Unknown, Notinfile Primary Care Provider Unavail able Sue Xavier Primary Care Provider Christo Haas MD Primary Care Provider [phone] Sue Xavier Primary Care Provider Christo Haas MD Primary Care Provider [phone] Sue Xavier Primary Care Provider Christo Haas MD Primary Care Provider [phone] Christo Haas MD Primary Care Provider [phone] Stephanie Dangelo Unavailable [phone] Encounter Details Date Type Department Care Team (Latest Contact Info) Description 03/18/2018 Orders Only [facility] Provider, MD Daryl [address] [place] [id number] Social History Tobacco Use Types Packs/Day Years Used Date Smoking Tobacco: Never Assessed Alcohol Use Standard Drinks/Week Comments Yes 0 (1 standard drink = 0.6 oz pur e alcohol) Comments Unknown Sex and Gender Information Value Date Recorded Sex Assigned at Not on file Legal Sex Female 2:05 AM TIMBER SURVEYOR Gender Identity Female 03/19/2020 11:04 AM TIMBER SURVEYOR Sexual Orientation Straight 03/19/2020 11 :04 AM TIMBER SURVEYOR documented as of this encounter Plan of Treatment Not on file documented as of this encounter Procedures Procedure Name Priority Date/Time Associated Diagnosis Comments SCAN - PATHOLOGY 03/18/2018 12:0 0 AM TIMBER SURVEYOR documented in this encounter Results * SCAN - PATHOLOGY (03/18/2018 12:00 AM TIMBER SURVEYOR) Narrative 03/18/2018 12:00 AM TIMBER SURVEYOR Ordered by an unspecified provider. us Historical Provider Final Res ult documented in this encounter Visit Diagnoses Not on filedocumented in this encounter Additional Health Concerns Infection Onset Date Last Indicated Resolved Time COVID: Suspected 03/03/2021 03/03/2021 03/04/2021 4:04 AM TIMBER SURVEYOR COVID19 03/03/2021 03/03/2021 03/17/2021 3:05 AM TIMBER SURVEYOR COVID: Recovered Comment:Added based on recent COVID infection. 03/17/2021 03/27/2021 07/15/2021 3:05 AM C DT COVID19 Comment:PT REPORTS COVID POSITIVE 12\7\23 SYMPTOM ONSET 12\5\23 02/04/2023 02/04/2023 02/14/2023 3:05 AM TIMBER SURVEYOR documented as of this encounter Care Teams Software Quality Test Engineer Relationship Specialty Start Date End Date Unknown, [...] Family Medicine 08/26/22 05/01/24 Christo Haas MD [address] [place] [id number] PCP - General Family Medicine 05/02/24 Stephanie Dangelo PA [address] [address] Orthopedic Surgery 06/09/24 documented as of this encounter
--- OUTSIDE RECORDS SUMMARY | 2024-06-22 14:48 | XMS_ITS | Referral Summary ---
Author Organization [place] [id number] [facility] Address [address] [place] [address] Care Team Providers Care Kayak Maker Name Role Phone Christo Haas MD Primary Care Provider [phone] Stephanie Dangelo PA Unavailable [phone] Encounters Date Type Department Care Team Description 06/22/2024 8:19 AM CDT Hospital Encounter [facility] Diag Imaging [address] [place] [address] S/P total left hip arthroplasty 06/22/2024 9:00 AM CDT Office Visit [facility] Orthopedics and Sports Medicine [address] [place] [address] [place] [phone] Stephanie Dangelo PA S/P total left hip arthroplasty (Primary Dx); Spasm of muscle 06/21/2024 1:30 PM CDT Therapy [facility] OP Physical Therapy [address] [place] [id number] Rosina Christensen PTA S/P total left hip arthroplasty (Primary Dx) 06/20/2024 8:30 AM CDT Therapy [facility] OP Physical Therapy [address] [place] [address] Schlich, Koltin, OUT OF SCHOOL HOURS CARE WORKER S/P total left hip arthroplasty (Primary Dx) 06/15/2024 Plan of Care Documentation [facility] OP Physical Therapy [address] [place] [address] 06/15/2024 2:00 PM CDT Therapy [facility] OP Physical Therapy [address] [place] [address] Mildred Gonsales, PT S/P total left hip arthroplasty (Primary Dx) 06/09/2024 5:17 AM CDT - 06/10/2024 1:57 PM CDT Hospital Encounter [address] [address] Blayne Cano DO S/P total left hip arthroplasty (Primary Dx); Primary osteoarthritis of left hip Discharge Disposition: Discharge to home or self care 06/09/2024 7:30 AM CDT - 06/09/2024 10:20 AM CDT Surgery [facility] [place] [address] [place] [address] Blayne Cano DO LEFT TOTAL HIP ARTHROPLASTY ANTERIOR 06/09/2024 7:32 AM CDT Anesthesia Event [facility] [place] [address] [place] [address] Ishan Ferreira MD Taylor-White, Carlotta A., NP 06/08/2024 1:45 PM CDT - 06/08/2024 11:59 PM CDT Hospital Encounter [facility] Bl [address] [place] [address] Other abnormal and inconclusive findings on diagnostic imaging of breast Discharge Disposition: Discharge to home or self care 05/25/2024 Telephone [facility] PreAdmission Testing [address] [place] [address] Monica Alcantar RN 05/25/2024 11:00 AM CDT Office Visit [facility] Neurology [address] [place] [address] [address] [place] [phone] Arlen Brown NP Migraine without aura and without status migrainosus, not intractable (Primary Dx) 05/24/2024 10:30 AM CDT Pre-Admission Testing [facility] PreAdmission Testing [address] [place] [address] Preop examination (Primary Dx); Primary osteoarthritis of left hip; Preop testing; Elevated hemoglobin A1c 05/24/2024 9:00 AM CDT Office Visit [facility] Orthopedics and Sports Medicine [address] [place] [address] [address] [place] [address] Blayne Cano, Primary osteoarthritis of left hip (Primary Dx) 05/23/2024 Plan of Care Documentation [facility] OP Occup Therapy [address] [place] [address] 05/23/2024 Documentation [facility] [address] [address] Makenzie Phelps RN 05/23/2024 12:00 PM CDT Therapy [facility] OP Occup Therapy [address] [place] [address] [address] [place] [address] Negrita Borrego, OT Primary osteoarthritis of left hip (Primary Dx) 05/02/2024 Orders Only [facility] Sports Medicine [address] [place] [address] [address] [place] [address] Blayne Cano, Primary osteoarthritis of left hip (Primary Dx) 05/01/2024 8:30 AM RODENT CONTROL WORKER Office Visit [facility] Orth[facility]ics and Sports Medicine [address] [place] [address] [address] [place] [address] Blayne Cano DO Primary osteoarthritis of left hip (Primary Dx); Femoral acetabular impingement 04/12/2024 9:00 AM RODENT CONTROL WORKER Office Visit [facility] [address] [place] [address] [address], [address] [place] [phone] Adrian Rios PA Primary osteoarthritis of left hip (Primary Dx); Chronic SI joint pain 04/06/2024 9:47 AM RODENT CONTROL WORKER - 04/06/2024 11:59 PM RODENT CONTROL WORKER Hospital Encounter [facility] [address] [facility] [address] DAYNE Shaikh [phone] Left hip pain Discharge Disposition: Discharge to home or self care 04/06/2024 10:30 AM RODENT CONTROL WORKER Office Visit [facility] Orthopaedic Surgery [address] [facility] Medical Office Building [address] [place] [phone] Enid Snell MD Left hip pain (Primary Dx) 03/29/2024 11:00 AM RODENT CONTROL WORKER Therapy [facility] OP Physical Therapy [facility] [address] [address] Michelle Underwood, PT Left low back pain, [...] weekly Assessment & Plan (03/27/2021 3:33 PM RODENT CONTROL WORKER): Will check 25 hydroxy vitamin-D level Start [...] current Assessment & Plan (03/27/2021 3:32 PM RODENT CONTROL WORKER): Hba1c was Lab Results Component Value Date [...] acquired 11/26/2015 Atherosclerotic heart diseas e of [place] coronary artery without angina pectoris 10/22/2015 Essential hypertension 10/22/2015 Overview (03/21/2020): Controlled GERD (gastroesophageal reflux disease) 6 Metabolic syndrome 07/13/2015 Overview (03/21/2020): Improved with weight loss Mitral valve prolapse 07/13/2015 Overview (03/21/2020): With mild mitral valve regurgitation Obstructive sleep apnea 07/13/2015 Overview (03/21/2020): On CPAP, sees Dr. iFnney Assessment & Plan (07/13/2023 9:30 AM CDT): Due to continued symptoms, the patient will continue CPAP at 10 cm water pressure. Denied need for supplies [facility] patient Assessment & Plan (04/09/2023 11:19 AM RODENT CONTROL WORKER): The patient has obstructive sleep apnea and [...] 05/21/2020 Assessment & Plan (03/05/2020 5:52 PM RODENT CONTROL WORKER): Hba1c was Lab Results Component Value Date [...] oz pur e alcohol) On rare occasion [facility] Utilities Answer Date Recorded In the past 12 months has th e [employer], gas, oil, or water [employer] threatened to shut off services in your [...] week 06/09/2024 How often do you attend [facility] or yazidi services? 1 to 4 times per year 06/09/2024 Do you belong to any clubs o r organizations such as alevism groups, unions, fraternal or athletic groups, or [...] any time in the past 12 m [facility], were you homeless or living in a detention (including now)? No 06/09/2024 Personal Safety Answer Date Recorded Have you ever been in or are you currently in a harmful physical or emotional relationship or is someone making you feel afraid or unsafe? Denies 06/09/2024 Comments No Sex and Gender Information Value Date Recorded Sex Assigned at Not on file Legal Sex Female 2:05 AM RODENT CONTROL WORKER Gender Identity Female 03/19/2020 11:04 AM RODENT CONTROL WORKER Sexual Orientation Straight 03/19/2020 11 :04 AM RODENT CONTROL WORKER Last Filed Vital Signs Vital Sign Reading [...] Chronic Care Management No change(02/07 2:07 PM RODENT CONTROL WORKER) No Jeanette Thurman, ALESSANDRA Note: Problem: Chronic Pain Goals: 1. Minimize further functional decline 2. Maximize quality of life 3. Control pain Strategies: - Activity/exercise program recommendation - Conservative stepwise pain medicine strategy with multi-disciplinary approach - Recommend healthy lifestyle strategies and compensatory methods as needed Medical Devices Implanted Type Area Private Sector Executive Device Identifier Shelf Expiration Date Model / Serial / Lot [employer] Partnership Marker Biospy Site Mini Cork Shape [employer] [place]ma[place] - [id number] Implanted:Qty: 1 on 11/19/2023 by Colin Villalba MD at [facility] Right: Breast Hologic Limited Partnership [id number] 07/07/2024 ABHIJITK-JUAN C O / / [id number] Clickability[employer] Limited Partnership Marker Tissue Deployment Device [id number] [employer] [id number] - [id number] Implanted:Qty: 1 on 11/19/2023 by Colin Villalba MD at [facility] Axilla [employer]ologic Limited Partnership [id number] 01/11/2028 [id number] / / [id number] Pins Left: Ankle [place] Right: Heel [employer] [place] 54mm Sector Hip Shell Acetabular Gription Sterile Latex Free [id number] - [id number] Implanted:Qty: 1 on 06/09/2024 by Blayne Cano DO at [facility] Left: Hip [employer] Inc [id number] 02/28/2034 [id number] / / [id number] [employer] [place] 54mm 36mm Hip Neutral Liner Acetabular Altrx Sterile Latex Free [id number] - [id number] Implanted:Qty: 1 on 06/09/2024 by Blayne Cano DO at [facility] Left: Hip [employer] [id number] 02/28/2029 [id number] / / [id number] [employer] [place] 54mm Sector Hip Shell Acetabular Gription Sterile Latex Free [id number] - [id number] Implanted:Qty: 1 on 06/09/2024 by Blayne Cano DO at [facility] Left: Hip [employer] [id number] 02/28/2034 [id number] / / [id number] [employer] Actis Collared Hip 02/11 6 Standard Offset Stem Femoral [id number] - [id number] Implanted:Qty: 1 on 06/09/2024 by Blayne Cano DO at [facility] Left: Hip [employer] [id number] 03/31/2034 [id number] / / [id number] [employer] Articul/Elia 36mm Cementless Hip +8.5mm 02/11 [place] Femoral Latex Free 1365-36-330 - [id number] Implanted:Qty: 1 on 06/09/2024 by Blayne Cano DO at [facility] Left: Hip [employer] [id number] 02/28/2029 1365-36-330 / / [id number] Procedures Procedure Name Priority Date/Time Associated Diagnosis [...] HOUR IP Routine 06/09/2024 9:35 AM CDT DE AN PROCEDURE PLACEHOLDER Routine 06/09/2024 7:58 AM CDT DE AN ELECTIVE ENDOTRACHEAL AIRWAY Routine 06/09/2024 7:58 [...] Read Routine (OP Routine) 04/06/2024 10:03 AM RODENT CONTROL WORKER Left hip pain SCREENING MAMMOGRAM BILATERAL W [...] ORDERABLES - DEVICE F inal Result [facility] [address] [facility] Department [place] [address] * eGFR (06/10/2024 2:46 AM CDT) eGFR [...] Stephanie GUADALUPE LAB BLOOD ORDERABLES Final Result [facility] [address] [facility] Department [place] [address] * (ABNORMAL) Differential, auto (06/10/2024 2:46 AM CDT) Neutrophil abs 9.33(H) 1.50 - 6.50 K/cumm Imm gran abs 0.06 0.00 - 0.10 K/cumm [facility] Lymphocyte abs 1.44 0.80 - 3.30 K/cumm [facility] Monocyte abs 0.78 0.20 - 0.80 K/cumm [facility] Eosinophil abs 0.00 0.00 - 0.50 K/cumm [facility] Basophil abs 0.02 0.00 - 0.10 K/cumm [facility] Neutrophil pct 80.2 % [facility] Comment: Interpretive Data Percent cell count reference ranges are not reported, since discordance with absolute values may lead to misinterpretation of CBC data. Current Interpretive Data was last revised on 2017. Imm gran pct 0.5 % [facility] Comment: Interpretive Data Percent cell count reference ranges are not reported, since discordance with absolute values may lead to misinterpretation of CBC data. Current Interpretive Data was last revised on 2017. Lymphocyte pct 12.4 % [facility] Comment: Interpretive Data Percent cell count reference ranges are not reported, since discordance with absolute values may lead to misinterpretation of CBC data. Current Interpretive Data was last revised on 2017. Monocyte pct 6.7 % [facility] Comment: Interpretive Data Percent cell count reference ranges are not reported, since discordance with absolute values may lead to misinterpretation of CBC data. Current Interpretive Data was last revised on 2017. Eosinophil pct 0.0 % [facility] Comment: Interpretive Data Percent cell count reference ranges are not reported, since discordance with absolute values may lead to misinterpretation of CBC data. Current Interpretive Data was last revised on 2017. Basophil pct 0.2 % [facility] Comment: Interpretive Data Percent cell count reference ranges are not reported, since discordance with absolute values may lead to misinterpretation of CBC data. Current Interpretive Data was last revised on 2017. Blood 06/10/2024 2:46 AM CDT 06/10/2024 2:56 AM CDT Nancy GUADALUPE LAB BLOOD ORDERABLES Final Re sult Performing Organization Address [facility] Co de Phone Number [address] [employer] [place] [address] * (ABNORMAL) CBC with auto differential (06/10/2024 2:46 AM CDT) Pathologist [facility] WBC 11.63(H) 3.80 - 9.90 K/cumm Hgb 9.7(L) 11.9 - 15.5 g/dL [facility] Hct 29.7(L) 35.6 - 45.5 % [facility] Plt 186 150 - 400 K/cumm [facility] MPV 10.9 9.1 - 12.3 fL [facility] RBC 3.49(L) 3.90 - 5.20 M/cumm [facility] MCV 85.1 81.3 - 96.4 fL [facility] MCH 27.8 27.1 - 33.3 pg [facility] MCHC 32.7 32.3 - 35.7 g/dL [facility] RDW CV 13.7 11.1 - 14.9 % [facility] RDW SD 41.9 35.7 - 48.1 fL [facility] NRBC abs 0.00 0.00 - 0.01 K/cumm [facility] Blood 06/10/2024 2:46 AM CDT 06/10/2024 2:56 AM CDT Nancy GUADALUPE LAB BLOOD ORDERABLES Final Re sult Performing Organization Address [facility]/ZIP Co de Phone Number LEX[address] [employer] [place] [address] * (ABNORMAL) Basic metabolic panel (06/10/2024 2:46 AM CDT) Pathologist [facility] Sodium 138 135 - 145 mmol/L Potassium, pl 3.4 3.3 - 4.9 mmol/L [facility] Chloride 102 97 - 110 mmol/L [facility] CO2 29 22 - 32 mmol/L [facility] Anion gap 7 2 - 15 mmol/L [facility] BUN 7 6 - 25 mg/dL [facility] Creatinine 0.69 0.60 - 1.10 mg/dL [facility] Glucose 126 70 - 199 mg/dL [facility] Comment: Interpretive Data Fasting glucose [...] 2022. Calcium 8.3(L) 8.5 - 10.3 mg/dL [facility] Blood 06/10/2024 2:46 AM CDT 06/10/2024 2:56 AM CDT Stephanie GUADALUPE LAB BLOOD ORDERABLES Final Result Performing Organization Address City/[facility]/ZIP Co de Phone Number [address] [place] [address] * POCT glucose (06/09/2024 8:42 PM CDT) [facility] Glucose, POC 198 70 - 199 mg/dL Glucose comment 1 Follow Protocol [facility] Blood 06/09/2024 8:42 PM CDT 06/09/2024 8:42 PM CDT Blayne Cano DO LAB POCT ORDERABLES - DEVICE F inal Result Performing Organization Address City/[facility]/ZIP Co de Phone Number [address] [place] [address] * (ABNORMAL) POCT glucose (06/09/2024 4:22 PM CDT) Glucose, POC 206(H) 70 - 199 mg/dL Blood 06/09/2024 4:22 PM CDT 06/09/2024 4:22 PM CDT us Blayne Jerome DO LAB POCT ORDERABLES - DEVICE F inal Result [place] [address] [facility] Department [place] [address] * (ABNORMAL) Differential, auto (06/09/2024 1:01 PM CDT) [facility] Neutrophil abs 15.44(H) 1.50 - 6.50 K/cumm Imm gran abs 0.18(H) 0.00 - 0.10 K/cumm [facility] Lymphocyte abs 1.18 0.80 - 3.30 K/cumm [facility] Monocyte abs 0.30 0.20 - 0.80 K/cumm [facility] Eosinophil abs 0.00 0.00 - 0.50 K/cumm [facility] Basophil abs 0.03 0.00 - 0.10 K/cumm [facility] Neutrophil pct 90.0 % [facility] Comment: Interpretive Data Percent cell count reference ranges are not reported, since discordance with absolute values may lead to misinterpretation of CBC data. Current Interpretive Data was last revised on 2017. Imm gran pct 1.1 % [facility] Comment: Interpretive Data Percent cell count reference ranges are not reported, since discordance with absolute values may lead to misinterpretation of CBC data. Current Interpretive Data was last revised on 2017. Lymphocyte pct 6.9 % [facility] Comment: Interpretive Data Percent cell count reference ranges are not reported, since discordance with absolute values may lead to misinterpretation of CBC data. Current Interpretive Data was last revised on 2017. Monocyte pct 1.8 % [facility] Comment: Interpretive Data Percent cell count reference ranges are not reported, since discordance with absolute values may lead to misinterpretation of CBC data. Current Interpretive Data was last revised on 2017. Eosinophil pct 0.0 % [facility] Comment: Interpretive Data Percent cell count reference ranges are not reported, since discordance with absolute values may lead to misinterpretation of CBC data. Current Interpretive Data was last revised on 2017. Basophil pct 0.2 % [facility] Comment: Interpretive Data Percent cell count reference ranges are not reported, since discordance with absolute values may lead to misinterpretation of CBC data. Current Interpretive Data was last revised on 2017. Blood 06/09/2024 1:01 PM CDT 06/09/2024 1:10 PM CDT Nancy GUADALUPE LAB BLOOD ORDERABLES Final Re sult [facility] [address] [facility] Department [place] [address] * (ABNORMAL) CBC with auto differential (06/09/2024 1:01 PM CDT) WBC 17.13(H) 3.80 - 9.90 K/cumm Hgb 11.8(L) 11.9 - 15.5 g/dL [facility] Hct 35.0(L) 35.6 - 45.5 % [facility] Plt 244 150 - 400 K/cumm [facility] MPV 10.9 9.1 - 12.3 fL [facility] RBC 4.18 3.90 - 5.20 M/cumm [facility] MCV 83.7 81.3 - 96.4 fL [facility] MCH 28.2 27.1 - 33.3 pg [facility] MCHC 33.7 32.3 - 35.7 g/dL [facility] RDW CV 13.7 11.1 - 14.9 % [facility] RDW SD 42.0 35.7 - 48.1 fL [facility] NRBC abs 0.00 0.00 - 0.01 K/cumm [facility] Blood 06/09/2024 1:01 PM CDT 06/09/2024 1:10 PM CDT Nancy GUADALUPE LAB BLOOD ORDERABLES Final Re sult Performing Organization Address [facility] Co de Phone Number CHARLEY [address] [address] * eGFR (06/09/2024 11:33 AM CDT) eGFR [...] BLOOD ORDERABLES Final Result Performing Organization Address [facility] Co de Phone Number LEX[address] [employer] [place] [address] * Protime-INR (06/09/2024 11:33 AM CDT) Pathologist [facility] PT 13.2 12.0 - 14.6 sec INR [...] BLOOD ORDERABLES Final Result Performing Organization Address City/[facility]/ZIP Co de Phone Number [facility] [address] [place] [address] * (ABNORMAL) CBC without differential (06/09/2024 11:33 AM CDT) WBC 11.60(H) 3.80 - 9.90 K/cumm Hgb 11.5(L) 11.9 - 15.5 g/dL [facility] Hct 35.0(L) 35.6 - 45.5 % [facility] Plt 228 150 - 400 K/cumm [facility] MPV 11.1 9.1 - 12.3 fL [facility] RBC 4.14 3.90 - 5.20 M/cumm [facility] MCV 84.5 81.3 - 96.4 fL [facility] MCH 27.8 27.1 - 33.3 pg [facility] MCHC 32.9 32.3 - 35.7 g/dL [facility] RDW CV 13.8 11.1 - 14.9 % [facility] RDW SD 42.2 35.7 - 48.1 fL [facility] NRBC abs 0.00 0.00 - 0.01 K/cumm [facility] Blood 06/09/2024 11:3 3 AM CDT 06/09/2024 11:53 AM CDT Narrative CHARLEY - 06/09/2024 11:58 AM CDT Baseline prior to apixaban initiation. Stephanie GUADALUPE LAB BLOOD ORDERABLES Final Result Performing Organization Address City/[facility]/ZIP Co de Phone Number CHARLEY [address] [place] [address] * Creatinine (06/09/2024 11:33 AM CDT) Creatinine 0.63 0.60 - 1.10 mg/dL Blood 06/09/2024 11:3 3 AM CDT 06/09/2024 11:53 AM CDT Narrative [facility] - 06/09/2024 12:27 PM CDT Baseline prior to apixaban initiation. Stephanie GUADALUPE LAB BLOOD ORDERABLES Final Result [address] [employer] [place] [address] * Hepatic function panel (06/09/2024 11:33 AM CDT) Bilirubin, total 0.6 0.1 - 1.2 mg/dL Bilirubin, direct 0.3 0.1 - 0.3 mg/dL [facility] Protein, pl 6.8 6.5 - 8.5 g/dL [facility] Albumin 3.8 3.5 - 5.0 g/dL [facility] Alk phos 80 40 - 130 Units/L [facility] ALT 13 7 - 45 Units/L [facility] AST 23 10 - 45 Units/L [facility] Blood 06/09/2024 11:3 3 AM CDT 06/09/2024 11:53 AM CDT Narrative [facility] - 06/09/2024 12:27 PM CDT Baseline prior to apixaban initiation. Stephanie GUADALUPE LAB BLOOD ORDERABLES Final Result [address] [employer] [place] [address] * POCT glucose (06/09/2024 11:22 AM CDT) Glucose, POC 197 70 - 199 mg/dL Blood 06/09/2024 11:2 2 AM CDT 06/09/2024 11:22 AM CDT us Blayne Cano DO LAB POCT ORDERABLES - DEVICE F inal Result [facility] [address] [facility] Department [place] [address] * XR Hip Left 2 or 3 [...] by Carlitos Jean M.D. T: Report ID: [id number] Reading Location: [place] [address] Procedure Note Carlitos Jean MD - 06/09/2024 [...] by Carlitos Jean M.D. T: Report ID: [id number] Reading Location: [id number] us Stephanie GUADALUPE IMG XR PROCEDURES Final Re sult * POCT glucose (06/09/2024 10:24 AM CDT) Glucose, POC 185 70 - 199 mg/dL Glucose comment 1 Use This Result LEXIEDUARTE [facility] Blood 06/09/2024 10:2 4 AM CDT 06/09/2024 10:24 AM CDT Blaynerosie Mckeonvandana DO LAB POCT ORDERABLES - DEVICE F inal Result Performing Organization Address [facility]/ZIP Co de Phone Number [facility] [address] [facility] Department [place] [address] * FL Fluoroscopy < 1 Hour (06/09/2024 9:35 AM CDT) Narrative RAD_OLU_MARIA EUGENIA_MHE - 06/09/2024 9:37 AM CDT The images from this study are not interpreted by Radiology. Please refer to the physician's procedure / OR operative note. Blaynerosie Mckeonvandana DO IMG FLUOROSCOPY PROCEDURES Fin al Result Performing Organization Address [facility] Co de Phone Number [email or web address] * DE AN ELECTIVE ENDOTRACHEAL AIRWAY, DE AN PROCEDURE PLACEHOLDER (06/09/2024 7:58 AM CDT) Narrative Rossy Lambert CRNA - 06/09/2024 7:58 AM CDT Rossy Lambert CRNA 06/09/2024 7:58 AM Airway Patient location: OR Urgency: elective Date/time: 06/09/2024 7:36 AM Indications for airway management: anesthesia and airway protection Difficult airway: no Staff: Placed by: DISC SANDER: Rossy Lambert CRNA Emergent airway documentation: Risks [...] pH,cali POC 7.42 7.32 - 7.43 pCO2, cail POC 41 40 - 50 mmHg [facility] pO2,cali POC 49 mmHg [facility] Comment: Interpretive Data No reference range established. Current interpretive data was last revised 2019. HCO3, cali (Calc) POC 27 20 - 30 mmol/L [facility] Base excess, cali POC 2 mmol/L [facility] Comment: Interpretive Data No reference range established. Current interpretive data was last revised 2019. Hemoglobin, cali POC 12.9 11.9 - 15.5 g/dL [facility] Hematocrit, cali POC 38.0 35.6 - 45.5 % [facility] Sodium, cali POC 138 135 - 145 mmol/L [facility] Potassium, cali POC 3.6 3.3 - 4.9 mmol/L [facility] Comment: Interpretive Data This method is not able to assess for hemolysis, which may falsely increase potassium concentrations. If further testing is needed to evaluate this result, consider in-laboratory plasma potassium. Current Interpretive Data was last revised on 2021. Glucose, cali POC 140 70 - 199 mg/dL [facility] Ionized Calcium, cali POC 4.80 4.50 - 5.10 mg/dL [facility] Blood 06/09/2024 5:59 AM CDT 06/09/2024 5:59 AM CDT SNOBSWAP DO LAB POCT ORDERABLES - DEVICE F inal Result Performing Organization Address [facility] Co de Phone Number CHARLEY [address] [address] * ABO/Rh (06/09/2024 5:57 AM CDT) ABO/Rh O Positive Blood 06/09/2024 5:57 AM CDT 06/09/2024 6:00 AM CDT Narrative CHARLEY - 06/09/2024 6:36 AM CDT Has the patient had Daratumumab or Isatuximab in the past 6 months?->Unknown [facility] LAB BLOOD BANK TEST ORDERABLES Final Result Performing Organization Address [facility] de Phone Number LEX[address] [employer] [place] [address] * Antibody screen (06/09/2024 5:57 AM CDT) Juanis, indirect, Gel Interpretation Negative ABSC Blood 06/09/2024 5:57 AM CDT 06/09/2024 6:00 AM CDT Narrative CHARLEY - 06/09/2024 6:36 AM CDT Has the patient had Daratumumab or Isatuximab in the past 6 months?->Unknown [facility] LAB BLOOD BANK TEST ORDERABLES Final Result Performing Organization Address [facility] Co de Phone Number [address] [address] * Diagnostic Mammogram Right W Lenin (06/08/2024 [...] by Yoni James M.D., MD: Report ID: [id number] Reading Location: [facility] us Colin Villalba MD IM [...] DO LAB BLOOD ORDERABLES Final Res ult [facility] [address] [facility] Department [place] [address] * Differential, auto (05/24/2024 10:39 AM CDT) Pathologist [facility] Neutrophil abs 5.8 1.5 - 6.5 K/cumm Imm gran abs 0.0 0.0 - 0.1 K/cumm [facility] Lymphocyte abs 1.9 0.8 - 3.3 K/cumm [facility] Monocyte abs 0.4 0.2 - 0.8 K/cumm [facility] Eosinophil abs 0.1 0.0 - 0.5 K/cumm [facility] Basophil abs 0.0 0.0 - 0.1 K/cumm [facility] Neutrophil pct 70.8 % [facility] Comment: Interpretive Data Percent cell count reference ranges are not reported, since discordance with absolute values may lead to misinterpretation of CBC data. Current Interpretive Data was last revised on 2017. Imm gran pct 0.4 % [facility] Comment: Interpretive Data Percent cell count reference ranges are not reported, since discordance with absolute values may lead to misinterpretation of CBC data. Current Interpretive Data was last revised on 2017. Lymphocyte pct 23.4 % [facility] Comment: Interpretive Data Percent cell count reference ranges are not reported, since discordance with absolute values may lead to misinterpretation of CBC data. Current Interpretive Data was last revised on 2017. Monocyte pct 4.3 % [facility] Comment: Interpretive Data Percent cell count reference ranges are not reported, since discordance with absolute values may lead to misinterpretation of CBC data. Current Interpretive Data was last revised on 2017. Eosinophil pct 0.9 % [facility] Comment: Interpretive Data Percent cell count reference ranges are not reported, since discordance with absolute values may lead to misinterpretation of CBC data. Current Interpretive Data was last revised on 2017. Basophil pct 0.2 % [facility] Comment: Interpretive Data Percent cell count reference ranges are not reported, since discordance with absolute values may lead to misinterpretation of CBC data. Current Interpretive Data was last revised on 2017. Blood 05/24/2024 10:3 9 AM CDT 05/24/2024 10:44 AM CDT Blayne Cano DO LAB BLOOD ORDERABLES Final Res ult [facility]LEY [address] [facility] Department [place] [address] * Infection Prevention MRSA Only (Staphylococcus aureus) PCR Nasal (05/24/2024 10:39 AM CDT) PCR Scrn, Methicillin resistant Staphylococcus aureus (MRSA) Not Detected Not Detected Comment: Interpretive Data Testing performed using Nucleic Acid Amplification with the [employer] Xpert MRSA NxG Assay. This assay detects target DNA from mecA, mecC and the SCCmec insertion site of Staphylococcus aureus using Real-Time PCR and has been cleared by the FDA. Performance characteristics have been verified by the [facility]. Current Interpretive Data was last revised on 2022 Nasal 05/24/2024 10:3 9 AM CDT 05/24/2024 10:44 AM CDT us Blayne Cano DO LAB MICROBIOLOGY - GENERAL ORD ERABLES Final Result Performing Organization Address City/[facility]/ZIP Co de Phone Number CHARLEY [address] [address] * CBC with auto differential (05/24/2024 10:39 AM CDT) Pathologist [facility] WBC 8.2 3.8 - 9.9 K/cumm Hgb 12.2 11.9 - 15.5 g/dL [facility] Hct 37.0 35.6 - 45.5 % [facility] Plt 201 150 - 400 K/cumm [facility] MPV 10.9 9.1 - 12.3 fL [facility] RBC 4.34 3.90 - 5.20 M/cumm [facility] MCV 85.3 81.3 - 96.4 fL [facility] MCH 28.1 27.1 - 33.3 pg [facility] MCHC 33.0 32.3 - 35.7 g/dL [facility] RDW CV 13.1 11.1 - 14.9 % [facility] RDW SD 40.8 35.7 - 48.1 fL [facility] NRBC abs 0.00 0.00 - 0.01 K/cumm [facility] Blood 05/24/2024 10:3 9 AM CDT 05/24/2024 10:44 AM CDT Blayne Cano DO LAB BLOOD ORDERABLES Final Res ult Performing Organization Address City/[facility]/ZIP Co de Phone Number CHARLEY [address] [address] * ABO/Rh (05/24/2024 10:39 AM CDT) [facility] ABO/Rh O Positive Blood 05/24/2024 10:3 9 AM CDT 05/24/2024 10:44 AM CDT Narrative [facility] - 05/24/2024 11:22 AM CDT Is this test being ordered in advance for a procedure?->Yes Expected date of procedure:->06/09/24 Has the patient been transfused in the past 3 months?->No Has the patient been in the past 3 months?->No [facility] LAB BLOOD BANK TEST ORDERABLES Final Result Performing Organization Address [facility] de Phone Number LEX[address] [address] * Antibody screen (05/24/2024 10:39 AM CDT) [facility] Juanis, indirect, Gel Interpretation Negative ABSC Blood 05/24/2024 10:3 9 AM CDT 05/24/2024 10:44 AM CDT [facility] 05/24/2024 11:22 AM CDT Is this test being ordered in advance for a procedure?->Yes Expected date of procedure:->06/09/24 Has the patient been transfused in the past 3 months?->No Has the patient been in the past 3 months?->No [facility] LAB BLOOD BANK TEST ORDERABLES Final Result Performing Organization Address [facility] Phone Number [address] [address] * Hemoglobin A1c (05/24/2024 10:39 AM CDT) [facility] Hgb A1C 5.2 4.0 - 5.6 % Estimated Average Glucose 103 mg/dL [facility] Comment: The ADA recommends reporting an estimated Average Glucose (eAG) with all Hemoglobin A1c results using the equation derived from a study of 507 normal and diabetic adults. Minority populations were underrepresented and children were not included. (Diabetes Care 31:5483-4231, 2008). The eAG is not equivalent to a fasting glucose. Blood 05/24/2024 10:3 9 AM CDT 05/24/2024 10:44 AM CDT [facility] LAB BLOOD ORDERABLES Final Res ult Performing Organization Address [facility] de Phone Number [address] [place] [address] * (ABNORMAL) Comprehensive metabolic panel (05/24/2024 10:39 AM CDT) Sodium 139 135 - 145 mmol/L Potassium, pl 3.0(L) 3.3 - 4.9 mmol/L [facility] Chloride 100 97 - 110 mmol/L [facility] CO2 31 22 - 32 mmol/L [facility] Anion gap 8 2 - 15 mmol/L [facility] BUN 6 6 - 25 mg/dL [facility] Creatinine 0.58(L) 0.60 - 1.10 mg/dL [facility] Glucose 119 70 - 199 mg/dL [facility] Comment: Interpretive Data Fasting glucose [...] 2022. Calcium 9.0 8.5 - 10.3 mg/dL [facility] Bilirubin, total 0.5 0.1 - 1.2 mg/dL [facility] Protein, pl 7.2 6.5 - 8.5 g/dL [facility] Albumin 3.9 3.5 - 5.0 g/dL [facility] Alk phos 84 40 - 130 Units/L [facility] ALT 9 7 - 45 Units/L [facility] AST 16 10 - 45 Units/L [facility] Blood 05/24/2024 10:3 9 AM CDT 05/24/2024 10:44 AM CDT us Blayne Cano DO LAB BLOOD ORDERABLES Final Res ult [facility] [place] [address] * ECG 12 lead (05/24/2024 10:31 AM CDT) Ventricular Rate EKG/Min 87 BPM [facility] Atrial Rate 87 BPM [facility] DE-Interval (MSEC) 188 ms [facility] QRS-Interval (MSEC) 86 ms [facility] QT-Interval (MSEC) 380 ms [facility] QTc 457 ms [facility] P [place] 35 degrees [facility] R [place] -1 degrees [facility] T [place] 39 degrees [facility] Diagnosis Normal sinus rhythm Cannot rule out Inferior infarct (cited on or before 19-FEB-2023) Abnormal ECG When compared with ECG of 19-FEB-2023 12:01, No significant change was found Confirmed by MARIZOL GALINDO M.D. ([id number]) on 05/25/2024 7:46:44 AM [facility] 05/24/2024 10:3 1 AM CDT 05/25/2024 7:46 AM CDT Carline Zavala SEXER ECG ORDERABLES Jessy woods Result [facility] * XR Hip Left 2 or 3 Views W Pelvis (04/06/2024 10:03 AM RODENT CONTROL WORKER) Anatomical Region Laterality Modality Lower Extremities, Hip, Pelvis Left C omputed Radiography 04/06/2024 10:0 6 AM [employer]ENT CONTROL WORKER Impressions 04/06/2024 10:06 AM [employer]ENT CONTROL WORKER 1. Unchanged, moderate left hip osteoarthritis. Electronically signed by: Bishop Downs M.D. Narrative 04/06/2024 10:06 AM RODENT CONTROL WORKER EXAMINATION: XR HIP LEFT 2 OR 3 [...] URINE ORDERABLES Final Resul t [facility] [address] [place] [address] * (ABNORMAL) Lipid panel (09/26/2019 9:10 PM [...] Most Recently Relevant to Health Maintenance Insurance [facility] Advance Directives For more information, please contact: [phone] * Full Code (Latest Code Status on File) Date Activated Date Inactivated Comments 06/09/2024 11:20 AM 06/10/2024 6:13 PM * Full Code Date Activated Date Inactivated Comments 06/09/2024 11:13 AM 06/09/2024 11:20 AM Care Teams Kayak Maker Relationship Specialty Start Date End Date Christo Haas MD [address] [address] PCP - General Family Medicine 05/02/24 Stephanie Dangelo PA [address] [place] [address] Orthopedic Surgery 06/09/24
[2024-06-22] MEDS: OXYMETAZOLINE HCL 0.05% NAS 15 ML BTL (*BKC) 1 SPRAY NASAL (14:49)
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
== END 2024-06-22 15:21 | disposition home or self-care (01) ==
PROVIDERS: Registered Nurse; Emergency Provider Student in an Organized Health Care Education/Training Program; PCP Family Medicine
DX: R04.0 Epistaxis (principal); Z96.642 Presence of left artificial hip joint; Z79.01 Long term (current) use of anticoagulants; F41.8 Other specified anxiety disorders; E11.9 Type 2 diabetes mellitus without complications; H40.9 Unspecified glaucoma
CPT/HCPCS: 36415; 80053; 85025; 85610; 85730; 99283; A9270